=== PATIENT | male | born 1955 | race Caucasian/White ===

== ENCOUNTER 2020-10-24 12:38 | Outpatient (REF) | payer OTHER, SELFPAY ==
--- NOTE | ~2020-10-24 | XR_ITS ---
EXAMINATION: XR HAND, BILATERAL CLINICAL INFORMATION: Anesthesia of skin. COMPARISON: None TECHNIQUE: Three views left hand and three views right hand. FINDINGS: LEFT HAND: Mild reduction in PIP and DIP joint space is noted. The MCP joint and intercarpal joint spaces are normal. No fracture or dislocation seen. No soft tissue swelling. RIGHT HAND: Mild reduction PIP and DIP joint space without bony erosive changes. The MCP joint space is normal. There are mild bony erosive changes along the distal mid phalanx 3rd digit and distal 1st metacarpal 1st digit. The soft tissues are unremarkable. XR/XR hand RT min 3V IMPRESSION: Minimal early degenerative changes PIP and DIP joints. Mild bony erosive changes distal and mid phalanx 3rd digit and distal 1st metacarpal, nonspecific.
--- NOTE | ~2020-10-24 | XR_ITS ---
EXAMINATION: XR HAND, BILATERAL CLINICAL INFORMATION: Anesthesia of skin. COMPARISON: None TECHNIQUE: Three views left hand and three views right hand. FINDINGS: LEFT HAND: Mild reduction in PIP and DIP joint space is noted. The MCP joint and intercarpal joint spaces are normal. No fracture or dislocation seen. No soft tissue swelling. RIGHT HAND: Mild reduction PIP and DIP joint space without bony erosive changes. The MCP joint space is normal. There are mild bony erosive changes along the distal mid phalanx 3rd digit and distal 1st metacarpal 1st digit. The soft tissues are unremarkable. XR/XR hand LT min 3V IMPRESSION: Minimal early degenerative changes PIP and DIP joints. Mild bony erosive changes distal and mid phalanx 3rd digit and distal 1st metacarpal, nonspecific.
== END 2020-10-24 12:39 | disposition home or self-care (01) ==
LOC: HO.XRAY 12:38
PROVIDERS: PCP Family Medicine; Visit Provider Family Medicine
DX: R20.0 Anesthesia of skin (principal)
CPT/HCPCS: 73130

== ENCOUNTER → 2022-04-10 14:11 | Outpatient (BNVA) | payer OTHER, SELFPAY | PROVIDERS: PCP Family Medicine; Referring Provider Family Medicine; Visit Provider Internal Medicine Cardiovascular Disease | DX: I42.2 Other hypertrophic cardiomyopathy (principal); I10 Essential (primary) hypertension | CPT/HCPCS: 93005; 99202 ==

== ENCOUNTER 2022-05-13 09:53 | Day surgery (SDC) | payer OTHER, SELFPAY ==
--- NOTE | 2022-05-12 13:41 | HO.ANESPROP2 ---
Documented by User: Zulay Black NP 05/12/22 14:15 HPI - Anesthesia Eval Consult details Narrative: 67yo M for Colonoscopy [place] [facility] [place] hypertrophic cardiomyopathy. Last seen 04/2022 and clinically stable, good exercise tolerance. Case reviewed with Dr Soni KATE Active Problems Active Problems: All Active Problems (Updated 04/10/22 @ 14:33 by Fercho Gordon MD) HTN (hypertension) (Acute) Apical variant hypertrophic cardiomyopathy (Acute) Back pain (Acute) Past Medical History Medical History Apical variant hypertrophic cardiomyopathy Back pain Diabetes HTN (hypertension) Hyperlipidemia Social History Social History Advance Directives: No Advance Directives Information Provided: Yes Meds Allergies Allergy/AdvReac Type Severity Reaction Status Date / Time No Known Allergies Allergy Unverified 03/07/21 14:54 Home Medications Medication Instructions Recorded Confirmed Last Taken Type amlodipine 5 mg tablet 5 mg PO DAILY 04/10/22 04/10/22 Unknown History glipizide 2.5 mg tablet, extended 2.5 mg PO DAILY 04/10/22 04/10/22 Unknown History release 24 hr lisinopril 10 mg tablet 10 mg PO DAILY 04/10/22 04/10/22 Unknown History metformin 500 mg tablet,extended 1,000 mg PO BID 04/10/22 04/10/22 Unknown History release 24 hr pravastatin 20 mg tablet 20 mg PO DAILY PRN 04/10/22 04/10/22 Unknown History sitagliptin phosphate 100 mg 100 mg PO DAILY 04/10/22 04/10/22 Unknown History tablet (Januvia) Fish Oil 05/12/22 Unknown History Vitamin D3 05/12/22 05/12/22 Unknown History cyanocobalamin (vitamin B-12) 1 tab PO DAILY 05/12/22 05/12/22 Unknown History 1,000 mcg tablet Exam Exam Date and Time: May 12, 2022 1341 Narrative Narrative: EKG 04/2022 normal sinus rhythm with QS pattern in lead V1 and V2 with ST T wave changes suggestive of repolarization abnormality ECHO 2014 LV size is normal. Overall LV systolic function is hyperdynamic with EF >70% No regional LV wall motion abn. Progressive increase in wall thickness toward apex c/w assymetric apical hypertrophy. Diastolic filling pattern indicates impaired relaxation RV nml in size. RV systolic function is nml. Velocity of tricuspid regurg could not be adequated recorded No evidence of pericardial effusion Aortic root is minimally dilated measuring 3.9cm Assessment and Plan Assessment Anesthesia Assessment: Chart Reviewed Documented by User: Ania Green MD 05/13/22 10:30 [facility] Past Medical History Medical History Apical variant hypertrophic cardiomyopathy Back pain Diabetes HTN (hypertension) Hyperlipidemia Surgical History History of Problems with Anesthesia: No Social History Social History Advance Directives: No Advance Directives Information Provided: Yes Meds Allergies Allergy/AdvReac Type Severity Reaction Status Date / Time No Known Allergies Allergy Unverified 03/07/21 14:54 Home Medications Medication Instructions Recorded Confirmed Last Taken Type amlodipine 5 mg tablet 5 mg PO DAILY 04/10/22 04/10/22 Unknown History glipizide 2.5 mg tablet, extended 2.5 mg PO DAILY 04/10/22 04/10/22 Unknown History release 24 hr lisinopril 10 mg tablet 10 mg PO DAILY 04/10/22 04/10/22 Unknown History metformin 500 mg tablet,extended 1,000 mg PO BID 04/10/22 04/10/22 Unknown History release 24 hr pravastatin 20 mg tablet 20 mg PO DAILY PRN 04/10/22 04/10/22 Unknown History sitagliptin phosphate 100 mg 100 mg PO DAILY 04/10/22 04/10/22 Unknown History tablet (Januvia) Fish Oil 05/12/22 Unknown History Vitamin D3 05/12/22 05/12/22 Unknown History cyanocobalamin (vitamin B-12) 1 tab PO DAILY 05/12/22 05/12/22 Unknown History 1,000 mcg tablet Exam Airway Mallampati Class: III TM Dist: >3cm Neck ROM: Full Loose/Missing/Broken Teeth: No Heart: RRR Lungs: CTA Assessment and Plan Assessment Anesthesia Assessment: Anesthesia Plan Discussed Final Anesthetic Review History of Problems with Anesthesia: No NPO: Yes ASA Class: III Final Preanesthetic Review: Meds/Allgs Chart Reviewed, Consent Obtained/Reviewed and Anes Risks/Benef Reviewed Patient Risk: Intermediate Procedure Risk: Low Anesthetic Plan Anesthetic Plan: MAC: Disposition: Standard PACU
--- NOTE | 2022-05-13 10:35 | MHC.SHP ---
Pre-Procedural Eval Section A Date of Service: 05/13/22 The patient is an INPATIENT: No Changes since office visit: No Cold of Flu in the past 2 weeks, No New Medical Problems, No Changes in Medication and No Patient answered all questions The History & Physical has been completed within 30 days and I have reviewed it.: Yes Section B Chief Complaint: screening Allergies: Allergies Allergy/AdvReac Type Severity Reaction Status Date / Time No Known Allergies Allergy Unverified 03/07/21 14:54 Plan I have reviewed the history and physical and performed a pertinent physical examination on my patient. No changes have occurred unless specified. Time Spent With Patient Time: Total time managing care of this patient today ____ minutes.
[2022-05-13 10:51] VITALS: BP 107/78; PULSE 83; RESP 18; TEMP 36.3; O2SAT 96; BMI 29.1
[2022-05-13 10:52] LABS: Glucose, Whole Blood 203 mg/dL (60-115)
[2022-05-13] MEDS: Lactated Ringers 1,000 ML 50 ML IVCONT (10:55)
[2022-05-13 11:25] VITALS: BP 88/49; PULSE 74; RESP 20; TEMP 36.7; O2SAT 97
--- NOTE | 2022-05-13 11:32 | P.BOP_ITS ---
Brief Operative Note Date of Service: 05/13/22 Pre-op diagnosis: screening Post-op diagnosis: same Procedure: colonoscopy Surgeon: Tommy Montano Anesthesia: MAC Was an Table Games Shift Manager used for this Procedure?: No Estimated blood loss (mL): 2 Pathology: none sent Condition: stable Disposition: PACU
[2022-05-13 11:40] VITALS: BP 104/69; PULSE 72; RESP 18; O2SAT 95
[2022-05-13 11:55] VITALS: BP 107/77; PULSE 82; RESP 18; TEMP 36.6; O2SAT 98
--- NOTE | 2022-05-13 13:15 | OP_ITS ---
SURGEON: Tommy Montano MD INDICATIONS: Colon cancer screening. PREOPERATIVE DIAGNOSIS: POSTOPERATIVE DIAGNOSIS: PROCEDURE PERFORMED: Colonoscopy to the terminal ileum. ESTIMATED BLOOD LOSS: COMPLICATIONS: ANESTHESIA: Monitored anesthesia care. ASSISTANTS: SPECIMENS: DESCRIPTION OF PROCEDURE: Date:05/13/22. History and physical performed. The risks and benefits of the procedure were explained to the patient. Informed consent was obtained. The patient was placed in the left lateral decubitus position. A digital rectal exam was performed and was found to be normal. The Olympus pediatric video colonoscope was introduced into the rectum and advanced to the cecum without difficulty. The cecum was identified by transillumination, palpation, and identification of ileocecal valve. Examination was performed. The scope was removed. He tolerated the procedure well and was returned to the recovery area in stable condition. FINDINGS: The terminal ileum was examined and appeared normal. The visualized colonic mucosa was within normal limits without evidence of masses or ulcers. There was some liquid stool left, which limited the sensitivity examination for detection of small polyps. This was washed and suctioned. No polyps were identified. There was sigmoid diverticulosis with scattered diverticula throughout the remainder of the colon. Retroflexed examination showed moderate-sized internal hemorrhoids. IMPRESSION: Normal colonoscopy. RECOMMENDATION: 1. Follow up as needed. 2. Repeat colonoscopy is recommended in 10 years for average risk individuals. MD [place] Diallo/REJI / [id number] MTDD
== END 2022-05-13 12:30 | disposition home or self-care (01) ==
PROVIDERS: PCP Family Medicine; Visit Provider Internal Medicine Gastroenterology
PROC: 0DJD8ZZ Inspection of Lower Intestinal Tract, Via Natural or Artificial Opening Endoscopic (ICD-10-PCS; CPT 45378; principal; 2022-05-13 11:00)
DX: Z12.11 Encounter for screening for malignant neoplasm of colon (principal); K57.30 Diverticulosis of large intestine without perforation or abscess without bleeding; K64.8 Other hemorrhoids; I10 Essential (primary) hypertension; E78.00 Pure hypercholesterolemia, unspecified; E11.9 Type 2 diabetes mellitus without complications; Z79.84 Long term (current) use of oral hypoglycemic drugs; Z79.899 Other long term (current) drug therapy
CPT/HCPCS: G0121; 82947

== ENCOUNTER → 2022-05-14 10:21 | Outpatient (REF) | payer OTHER, SELFPAY ==
--- NOTE | 2022-05-14 10:26 | CA_ITS ---
Transthoracic Echocardiogram Patient (Last, First, Middle): Prabhu Esquivel, Gender: Male Date of : 1955 Age: 67 Procedure Date: 05/14/2022 Procedure Type: Transthoracic Echocardiogram Location: OP Height: 180.34 cm Weight: 94.8 kg BSA: 2.15 m2 Heart Rate: bpm BP: 105 / 72 mmHg Survey And Mapping Technician: TO Referring MD: Fercho Gordon MD Symptoms: I42.2 - Other hypertrophic cardiomyopathy Study Quality: Fair/Contrast ECG Rhythm: Sinus Conclusions: - The left ventricular systolic function is hyperdynamic. The visually estimated ejection fraction is >70%. - Apical hypertrophic cardiomyopathy noted with apical cavity obliteration during systole. - No obvious valvular pathology seen on this study. Findings Procedure Information Contrast agent, definity, is being given per protocol without apparent complications. Left Ventricle Mildly increased left ventricular cavity size. The left ventricular systolic function is hyperdynamic. The visually estimated ejection fraction is >70%. There is no evidence of regional wall motion abnormalities. Diastolic function is normal for age. Left ventricular wall thickness within normal range at the base increases towards the apex. Suggestive of apical hypertrophic cardiomyopathy. Apical cavity obliteration during systole. Right Ventricle Normal right ventricular cavity size and systolic function. Atria The left atrium is normal in size. Interatrial shunt cannot be excluded. Aortic Valve There is a normal trileaflet aortic valve. There is no aortic valve stenosis. There is no aortic valve regurgitation. Mitral Valve The mitral valve appears normal. There is no mitral valve regurgitation. There is no mitral valve stenosis. Pulmonic Valve The pulmonic valve is likely normal. Tricuspid Valve Normal tricuspid valve structure. There is trace tricuspid valve regurgitation. Tricuspid regurgitation envelope is inadequate for calculation of right ventricular systolic pressure. Great Vessels The asc aorta is normal in size. Venous The inferior vena cava is normal in size and collapses greater than 50% with inspiration. Pericardium/Pleural There is no evidence of pericardial effusion. Prior Study Comparison No significant change compared to prior study dated: 10/18/2014. Recommendations, Care & Conclusions No obvious valvular pathology seen on this study. Measurements 2D Linear Measurements IVSd: 1.41 0.6-0.9/0.6-1.0 cm LVIDd: 4.25 3.9-5.3/4.2-5.9 cm LVIDd Index: 1.98 2.4-3.2/2.2-3.1 cm/m2 LVIDs: 2.35 2.0-3.6 cm LVPWd: 0.96 0.7-1.1 cm LA Diam: 3.40 2.7-3.8/3.0-4.0 cm LAIDs Index: 1.58 1.5-2.3 cm/m2 LV Mass: 222.16 67-162/88-224 g LV Mass Index: 103.33 43-95/49-115 g/m2 LVOT Diam: 2.40 3.0+(-)1.3 cm 2D Systolic Function EF 4C: 69.40 >55% EF 2C: 66.30 >55% EF BiP: 67.10 >55% Mitral Valve MV Pk E: 0.47 MV PK A: 0.69 MV Decel Time: 168.00 E/A: 0.70 E'Lateral: 5.33 E'Medial: 3.81 E/E' Med: 12.40 E/E' Lat: 8.80 PHT: 49.00 MVA PHT: 4.49 Decel Curry: 2.80 Aortic Valve AoV Pk Alexy: 1.28 AoV Mn Alexy: 0.90 AoV VTI: 0.25 AoV Pk Grad: 7.00 Aov Mn Grad: 4.00 YAYO Cont.VTI: 3.30 LVOT LVOT Pk Alexy: 0.85 LVOT Mn Alexy: 0.63 LVOT VTI: 0.18 LVOT Pk Grad: 3.00 LVOT Mn Grad: 2.00 LVOT Diam: 2.40 LVOT Area: 4.52 Diastolic Function MV Pk E: 0.47 MV Pk A: 0.69 E/A: 0.70 E'Medial: 3.81 E/E' Med: 12.40 E' Laterial: 5.33 E/E' Lat: 8.80 Right Ventricle TAPSE (mm): 21.20 TVS' Alexy: 12.10 Tricuspid Valve RA Press: 3.00 Great Vessels Aorta Sinus of Valsalva: 4.12 2.0-3.5 cm Ao Asc: 3.70 2.1-3.4 cm Updated in Other Vendor System with Status of Final Josep Dao MD electronically signed on 05/17/2022 12:49:19 PM with status of Final
== END ==
LOC: HO.CARD 10:21
PROVIDERS: PCP Family Medicine; Visit Provider Internal Medicine Cardiovascular Disease
DX: I42.2 Other hypertrophic cardiomyopathy (principal)
CPT/HCPCS: 93306; Q9957

== ENCOUNTER 2022-11-21 09:18 | Outpatient (REF) | payer OTHER, SELFPAY ==
--- NOTE | ~2022-11-21 | US_ITS ---
EXAMINATION: US ABDOMEN COMPLETE CLINICAL INFORMATION: Transaminitis. COMPARISON: Renal ultrasound 12/20/2013. TECHNIQUE: Real-time imaging of the abdominal viscera. FINDINGS: PANCREAS: Limited. The visualized pancreatic head and body are normal in appearance. The remainder of the pancreas is obscured from visualization by the overlying bowel gas. ABDOMINAL AORTA: The proximal, mid, and distal segments are normal in caliber. INFERIOR VENA CAVA: Visualized portions are normal. LIVER: The liver is normal in size. The liver contour is normal. There is diffuse increased liver parenchymal echogenicity. No focal hepatic lesion. There is no intrahepatic biliary duct dilatation seen. GALLBLADDER: Normal. The gallbladder is physiologically distended without evidence of stones, sludge, polyps, wall thickening or pericholecystic fluid. COMMON BILE DUCT: Normal in caliber measuring 0.6 cm in diameter. RIGHT KIDNEY: Unremarkable. No hydronephrosis. No renal calculi or focal parenchymal lesions. The kidney measures 11.6 cm in maximum dimension. LEFT KIDNEY: At the upper pole, 2.1 cm and 4 mm in maximal diameter benign, simple cysts are seen. No hydronephrosis or renal calculi. The kidney measures 11.7 cm in maximum dimension. SPLEEN: No focal finding. The spleen measures 13.0 cm in maximum dimension. FREE FLUID: None. US/US abdomen complete IMPRESSION: 1. There is generalized increase in hepatic echotexture, consistent with fatty infiltration or hepatocellular disease. Please correlate clinically. No focal hepatic mass or intrahepatic biliary dilatation is seen. 2. There is borderline splenomegaly. 3. Two benign, simple left renal cysts are seen, for which no imaging follow-up is recommended. 4. Technically limited ultrasound examination of the pancreatic tail.
== END 2022-11-21 09:19 | disposition home or self-care (01) ==
LOC: HO.US 09:18
PROVIDERS: PCP Family Medicine; Visit Provider Family Medicine
DX: R74.01 Elevation of levels of liver transaminase levels (principal)
CPT/HCPCS: 76700

== ENCOUNTER 2023-04-16 11:18 | Outpatient (REF) | payer OTHER, SELFPAY ==
[2023-04-16 13:39] LABS: Estimated Average Glucose 143 mg/dL; Hemoglobin A1c % 6.6 % (<6.0)
[2023-04-16 13:44] LABS: Cholesterol 185 mg/dL (<200); HDL Cholesterol 45 mg/dL (>40); LDL Cholesterol Calculated 121 mg/dL (<100); Triglycerides 95 mg/dL (<150)
[2023-04-16 13:46] LABS: Reflex LDLD? No
[2023-04-16 13:53] LABS: Alanine Aminotransferase 14 U/L (0-40); Albumin Level 4.3 g/dL (3.5-5.0); Alkaline Phosphatase 50 U/L (39-117); Anion Gap 12 (12-20); Aspartate Amino Transferase 14 U/L (5-37); Bilirubin Total 0.6 mg/dL (0.0-1.0); Blood Urea Nitrogen 34 mg/dL (9-16); Calcium 9.9 mg/dL (8.4-10.2); Carbon Dioxide 25 mmol/L (22-29); Chloride 106 mmol/L (96-108); Estimated Glomerular Filt Rate 39; Glucose Random 150 mg/dL (60-115); Potassium 4.5 mmol/L (3.3-5.1); Sodium 138 mmol/L (135-145); Total Protein 7.3 g/dL (6.5-8.0)
[2023-04-16 13:54] LABS: Creatinine Urine 160.44 mg/dL; Microalbum/Creatinine Ratio Ur 25.5 ug/mg cr (<30)
[2023-04-16 13:57] LABS: TSH reflex Free T4 3.17 uIU/mL (0.32-4.0)
[2023-04-16 14:18] LABS: Folate 9.4 ng/mL (> or = 4.0); Vitamin B12 711 pg/mL (200-900)
== END 2023-04-16 11:19 | disposition home or self-care (01) ==
LOC: HO.HHCL 11:18
PROVIDERS: Visit Provider Family Medicine
DX: E11.65 Type 2 diabetes mellitus with hyperglycemia (principal); E11.22 Type 2 diabetes mellitus with diabetic chronic kidney disease; I42.2 Other hypertrophic cardiomyopathy; I25.10 Atherosclerotic heart disease of native coronary artery without angina pectoris; I12.9 Hypertensive chronic kidney disease with stage 1 through stage 4 chronic kidney disease, or unspecified chronic kidney disease; N18.9 Chronic kidney disease, unspecified; Z79.899 Other long term (current) drug therapy
CPT/HCPCS: 36415; 80053; 80061; 82043; 82570; 82607; 82746; 83036; 84443; 93005; 99212

== ENCOUNTER 2023-04-16 13:28 | Outpatient (AMB) | payer OTHER, SELFPAY ==
[2023-04-16 13:45] VITALS: BP 120/78; PULSE 77; BMI 27.1
--- NOTE | 2023-04-16 13:45 | MHC.OFFVIS ---
Intake Vital Signs 04/16/23 13:45 Height 5 ft 11 in Weight 194 lb 0.108 oz BMI 27.1 BP 120/78 Blood Pressure Location Lt brachial Position Sitting Pulse 77 Intake Visit Reasons: 1 year follow up Intake Note: 1 year follow-up with ekg feeling good Fabrication Welder Required: No Allergies No Known Allergies Allergy (Unverified 03/07/21 14:54) Medication List - Last Reconciled 04/16/23 by Fercho Gordon MD amlodipine 5 mg PO DAILY aspirin 1 tab PO DAILY cyanocobalamin (vitamin B-12) 1 tab PO DAILY [Fish Oil ] glipizide ER 2.5 mg PO DAILY lisinopril 10 mg PO DAILY metformin ER 1,000 mg PO BID pravastatin 20 mg PO DAILY sitagliptin phosphate (Januvia) 100 mg PO DAILY [Vitamin D3 ] HPI HPI Comments History of Present Illness Details Prabhu comes for follow-up. He has no new cardiac symptoms. He says blood pressures been under good control, diabetes been under good control. His LDL most recently shows a LDL of 121 which is elevated. His creatinine is elevated 1.73. I do not see any old creatinine in the system in the last 3 years. Takes all his medications. Denies any exertional chest pain or shortness of breath. No heart failure symptoms. No prolonged palpitations, irregular heartbeat, lightheadedness, syncope. [facility] Medical History Apical variant hypertrophic cardiomyopathy Hyperlipidemia Diabetes HTN (hypertension) Back pain Social History Patient Tobacco Use Status: Never used Tobacco Review of Systems Const Denies chills, Denies fatigue, Denies fever(s), Denies frequent falls, Denies weakness, Denies weight gain and Denies weight loss ENT Denies dizziness Card Denies chest pain, Denies leg edema, Denies lightheadedness, Denies palpitations, Denies dyspnea, Denies dyspnea on exertion, Denies orthopnea and Denies other (loss of consciousness) Resp Denies cough, Denies dyspnea and Denies dyspnea on exertion GI Denies hematochezia and Denies change in stool character Musc Denies abnormal gait, Denies muscle weakness, Denies numbness, Denies radiating pain into limb and Denies tingling Neuro Denies abnormal gait, Denies dizziness, Denies frequent falls, Denies numbness, Denies tingling and Denies weakness Endo Denies fatigue and Denies palpitations Physical Exam Vital Signs: Last Vital Signs Pulse 77 04/16/23 13:45 BP 120/78 04/16/23 13:45 BMI result Body Mass Index 27.1 Const General: cooperative, comfortable, no acute distress, alert and awake Nutritional Appearance: overweight Orientation/consciousness: patient oriented x3 Limitations: no limitations HEENT Head: Yes normocephalic and Yes atraumatic Neck Neck: Yes trachea midline, Yes supple and Yes no JVD Resp Effort & Inspection: normal respiratory effort Auscultation: clear to auscultation bilaterally Cardio Jugular venous distension: no JVD Palpation: normal PMI Rate: regular rate Rhythm: regular rhythm Heart sounds: S1 normal heart sound present, S2 normal heart sound present, no click, no gallops, no murmurs and no rubs GI Auscultation: normal bowel sounds Skin General skin exam: no rashes or lesions noted Neuro General: patient oriented x3 and no focal motor deficits Extrem General: Yes no clubbing, cyanosis or edema Office Procedures EKG Details: EKG shows normal sinus rhythm with diffuse ST T wave changes, consistent with his prior history of apical variant hypertrophic cardiomyopathy, unchanged from before [id number], Complete Assessment & Plan Assessment & Plan (1) Apical variant hypertrophic cardiomyopathy: Code(s): I42.2 - Other hypertrophic cardiomyopathy Plan: Apical variant of hypertrophic cardiomyopathy without any signs or symptoms of heart failure. Continue aggressive control of his blood pressure to prevent progressive diastolic dysfunction. Signs and symptoms of heart failure were discussed. Follow-up echocardiogram next year. Should consider screening for his kids with at least an EKG. (2) HTN (hypertension): Code(s): I10 - Essential (primary) hypertension Plan: Hypertension which is currently well optimized on current therapy. Continue the same. His diabetes also well controlled. However he is noted to have CKD. Will refer him to Nephrology for further assessment and management for chronic kidney disease. Continue aggressive control of lipids which are not well optimized will switch him to Lipitor 20 mg daily and follow-up lipid panel in 3 months time. Follow up in the clinic in 1 year's time, sooner p.r.n.. Thank you for allowing me to partake in his care Orders: Orders CA echo transthoracic complete 50 Weeks I42.2 - Other hypertrophic cardiomyopathy Lipid Panel 3 Months E11.9 - Type 2 diabetes mellitus without complications, I25.10 - Atherosclerotic heart disease of [place] coronary artery without angina pectoris Referrals Nephrology Referral N18.9 - Chronic kidney disease, unspecified Medications: New atorvastatin 20 mg PO DAILY 30 tabs 11RF Coding Level of Care Code Est Pt Level 4 (70890) Diagnoses Apical variant hypertrophic cardiomyopathy I42.2 HTN (hypertension) I10 CPT Codes EKG - CPT: 56158-[id number], Complete ([id number])
== END 2023-04-16 14:14 | disposition home or self-care (01) ==
PROVIDERS: Visit Provider Internal Medicine Cardiovascular Disease
DX: I42.2 Other hypertrophic cardiomyopathy (principal); I10 Essential (primary) hypertension
CPT/HCPCS: 93010; 99214

== ENCOUNTER 2023-04-28 14:06 | Outpatient (AMB) | payer OTHER, SELFPAY ==
[2023-04-28 14:07] VITALS: BP 100/62; PULSE 88; O2SAT 98; BMI 27.8
--- NOTE | 2023-04-28 14:07 | A.OFFVIS_ITS ---
Intake Vital Signs 04/28/23 14:07 Height 5 ft 11 in Weight 199 lb 2 oz BMI 27.8 BP 100/62 Blood Pressure Location Lt brachial Position Sitting Pulse 88 Pulse Source Pulse Oximeter Pulse Oximetry (%) 98 Oxygen Delivery Method Room Air Intake Visit Reasons: CKD Orthopedic Technician Required: No Accompanied by: Self / Same As Patient Allergies No Known Allergies Allergy (Verified 04/28/23 14:12) HPI HPI Comments History of Present Illness Details 60 year old man with history of diabetes mellitus and hypertension for more than 15 years. He was found to have serum creatinine of 1.7 with EGFR of 13 mL/minute he has been a for further evaluation. [facility] Medical History Apical variant hypertrophic cardiomyopathy Hyperlipidemia Diabetes HTN (hypertension) Back pain Social History Patient Tobacco Use Status: Never used Tobacco Review of Systems Const Denies anorexia, Denies fever(s) and Denies weakness Eyes Denies blurry vision Card Denies no additional complaints and Denies dyspnea Resp Reports no additional complaints, Reports cough and Denies dyspnea GI Denies melena and Denies diarrhea Denies hematuria Musc Denies tingling Skin/Breast Denies rash Neuro Denies focal weakness, Denies tingling, Denies tremor(s) and Denies weakness Physical Exam Vital Signs: Last Vital Signs Pulse 88 04/28/23 14:07 BP 100/62 04/28/23 14:07 Pulse Ox 98 04/28/23 14:07 Oxygen Delivery Method Room Air 04/28/23 14:07 BMI result Body Mass Index 27.8 Const General: comfortable; No acute distress Orientation/consciousness: patient oriented x3 Eyes General: appearance normal, both eyes and all related structures Visual Carrillo: normal visual carrillo by confrontation Neck Neck: Yes supple and Yes no JVD Resp Effort & Inspection: normal respiratory effort and respiratory effort not decreased Auscultation: rhonchi Cardio Palpation: no palpable S3 and no palpable S4 Heart sounds: no rubs GI Inspection: Yes normal to inspection Palpation (GI): Soft to palpation Percussion: Yes normal to percussion Auscultation: normal bowel sounds General: Yes no CVA tenderness Back/Spine/Pelvis Back: no CVA tenderness Skin General skin exam: no petechiae and no purpura Neuro General: patient oriented x3 and no focal motor deficits Extrem General: No clubbing and No edema Results Reviewed Results Reviewed: All labs were reviewed. Assessment & Plan Assessment & Plan (1) CKD (chronic kidney disease): Code(s): N18.9 - Chronic kidney disease, unspecified Plan: CKD stage 3. Serum creatinine 1.7. Baseline unknown. Cannot rule out superimposed NOEMI. NOEMI may be due to hypoperfusion from relatively low blood pressure. Will workup as outlined below. (2) Apical variant hypertrophic cardiomyopathy: Code(s): I42.2 - Other hypertrophic cardiomyopathy Plan: Currently asymptomatic. Follows with cardiology (3) Diabetes: Code(s): E11.9 - Type 2 diabetes mellitus without complications Plan: Goal A1c less than 7%. Discussed importance of tight control blood sugar. (4) HTN (hypertension): Code(s): I10 - Essential (primary) hypertension Plan: History of hypertension but blood pressure rather low today. He stopped amlodipine several weeks ago. I will decrease lisinopril from 10 mg down to 5 mg. Orders: Orders Creatinine 1 Week N18.9 - Chronic kidney disease, unspecified Calcium 1 Week N18.9 - Chronic kidney disease, unspecified Total Protein Urine Random 1 Week N18.9 - Chronic kidney disease, unspecified UA and rflx microscopic 1 Week N18.9 - Chronic kidney disease, unspecified Electrolytes 1 Week N18.9 - Chronic kidney disease, unspecified Blood Urea Nitrogen 1 Week N18.9 - Chronic kidney disease, unspecified Creatinine Urine 1 Week N18.9 - Chronic kidney disease, unspecified Uric Acid 1 Week N18.9 - Chronic kidney disease, unspecified Coding Level of Care Code New Pt Level 4 (91988) Diagnoses CKD (chronic kidney disease) N18.9 Apical variant hypertrophic cardiomyopathy I42.2 Diabetes E11.9 HTN (hypertension) I10
== END 2023-04-28 14:30 | disposition home or self-care (01) ==
PROVIDERS: PCP Family Medicine; Visit Provider Internal Medicine Hypertension Specialist
DX: N18.9 Chronic kidney disease, unspecified (principal); I42.2 Other hypertrophic cardiomyopathy; E11.9 Type 2 diabetes mellitus without complications; I12.9 Hypertensive chronic kidney disease with stage 1 through stage 4 chronic kidney disease, or unspecified chronic kidney disease
CPT/HCPCS: 99204

== ENCOUNTER → 2023-04-28 14:06 | Outpatient (BNVA) | payer OTHER, SELFPAY | PROVIDERS: PCP Family Medicine; Visit Provider Internal Medicine Hypertension Specialist | DX: E11.22 Type 2 diabetes mellitus with diabetic chronic kidney disease (principal); I12.9 Hypertensive chronic kidney disease with stage 1 through stage 4 chronic kidney disease, or unspecified chronic kidney disease; N18.9 Chronic kidney disease, unspecified; I42.2 Other hypertrophic cardiomyopathy | CPT/HCPCS: 99202 ==

== ENCOUNTER 2023-05-20 13:24 | Outpatient (AMB) | payer MEDICARE, MEDICAID, SELFPAY ==
[2023-05-20 13:43] VITALS: BP 126/78; PULSE 82; TEMP 36.3; O2SAT 98; BMI 28.7
--- NOTE | 2023-05-20 13:43 | MHC.OFFVIS ---
Intake Vital Signs 05/20/23 13:43 Height 5 ft 10 in Weight 199 lb 15.348 oz BMI 28.7 BP 126/78 Blood Pressure Location Rt brachial Position Sitting Pulse 82 Pulse Source Pulse Oximeter Temp 97.3 F Temp Source Tympanic Pulse Oximetry (%) 98 Oxygen Delivery Method Room Air Intake Visit Reasons: multiple joint pain Suspension Cord Tier Required: No Allergies No Known Allergies Allergy (Verified 05/20/23 13:45) Medication List - Last Reconciled 05/20/23 by Alysa De La Rosa RN aspirin 1 tab PO DAILY atorvastatin 10 mg PO DAILY cyanocobalamin (vitamin B-12) 1 tab PO DAILY [Fish Oil ] glipizide 5 mg PO DAILY lisinopril 5 mg PO DAILY metformin ER 1,000 mg PO BID sitagliptin phosphate (Januvia) 100 mg PO DAILY [Vitamin D3 ] HPI HPI Comments History of Present Illness Details Mr. Esquivel, 60 year old man with history of diabetes mellitus and hypertension for more than 15 years, comes for initial evaluation of hand spasms and pain. He says blood pressures been under good control, diabetes been under good control. The patient has been experiencing increase hand spasms(to both hands but not at the same time) with activities such as driving for long periods or doing dishes in cold water. He describes that a hand will stiffen and get stuck whereby he cannot independently move the fingers and objects will fall from the hand. This can last from 5 to 30 mins. He then has to massage the hand or hold it under warm water to help the hand to relax. These episodes are painful and are increasing. Patient denies Raynaud's phenomenon, butterfly rash on face or other rashes; denies photosensitivity - getting sick or developing a rash from being out in the sun; denies blood or froth in urine; patient denies hx of SOB, chest pain. Patient denies hx of Carditis or Pleuritis. Denies fevers, excessive fatigue, unexplained weight-loss or weight-gain Denies: thinning hair or hair loss. Denies: dry, itchy eyes, red burning eyes needing steroids to treat; dry mouth, mouth sores or ulcers; nose bleed; ringing in the ear Denies abdominal pain, blood or mucous in stool; nausea, vomiting and diarrhea , difficulty swallowing, heartburn. Denies morning stiffness lasting more than 20 mins. [facility] Medical History (Updated 12/20/23 @ 14:20 by Marisel Patton, [facility]) Spasms of the hands or feet Claw hand Arthralgia of hands, bilateral Bilateral hand numbness Erosive (osteo)arthritis FHx: Alzheimer's disease Memory impairment Left foot pain Bilateral knee pain Transaminitis Type 2 diabetes mellitus Apical variant hypertrophic cardiomyopathy Hyperlipidemia Diabetes HTN (hypertension) Back pain Family History Other Alzheimer disease Social History Patient Tobacco Use Status: Never used Tobacco Review of Systems Const All systems reviewed & are unremarkable except as noted in HPI and below Physical Exam Vital Signs: Last Vital Signs Temp 97.3 F 05/20/23 13:43 Pulse 82 05/20/23 13:43 BP 126/78 05/20/23 13:43 Pulse Ox 98 05/20/23 13:43 Oxygen Delivery Method Room Air 05/20/23 13:43 BMI result Body Mass Index 28.7 APPEARANCE: Patient in no acute distress EYES no redness, eyelids normal EARS:? External ear normal, canal clear and tympanic membrane normal. THROAT:? Oral mucosa moist, no ulcerations NECK:? No thyromegaly or masses, no adenopathy, trachea midline. HEART:? Regular rhythm, S1-S2 heard, no murmurs, rubs or gallops. LUNG:? Clear to percussion and auscultation EXTREMITIES:? No edema, no calf tenderness, normal peripheral pulses. NEURO:? Oriented and alert x3.? No focal weakness.? Reflexes symmetric.? Gait normal. Strength 5/5 SKIN:? There are no skin lesions evident. No objective signs of Raynaud's phenomenon. JOINT EXAM: Cervical Spine:.? Full range of motion without pain; no tenderness. Thoracic Spine:.? No scoliosis.? No tenderness on palpation. Lumbar Spine:.? Alignment normal.? Full range of motion without pain, no tenderness. Chest Wall:.? No tenderness, swelling, increased warmth or erythema. Hands:.? Normal pain-free range of motion without tenderness, swelling, increased warmth or erythema. 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 No dupuytrens or thenar atrophy, No osteophytes. Wrists:.? Normal pain-free range of motion without tenderness, swelling, increased warmth or erythema. Elbows:. Normal pain-free range of motion without tenderness, swelling, increased warmth or erythema. Shoulders:.?? Full range of motion without pain. No tenderness, weakness, swelling, increased warmth or erythema. Hips:.? Full range of motion without pain. Hip bursa:.? No tenderness. Knees:.?? Normal pain-free range of motion without tenderness, swelling, increased warmth or erythema.? There is no effusion or crepitation Ankles:.? Normal pain-free range of motion without tenderness, swelling, increased warmth or erythema. Feet:.? Normal pain-free range of motion without tenderness, swelling, increased warmth or erythema. Assessment & Plan Assessment & Plan (1) Bilateral hand numbness: Code(s): R20.0 - Anesthesia of skin (2) Arthralgia of hands, bilateral: Code(s): M25.541 - Pain in joints of right hand; M25.542 - Pain in joints of left hand (3) Spasms of the hands or feet: Code(s): R25.2 - Cramp and spasm (4) Diabetic neuropathic arthritis: Code(s): E11.610 - Type 2 diabetes mellitus with diabetic neuropathic arthropathy Plan #Diabetic Neuro Arthritis/Hand Spasms/Numbness:Mr. Esquivel is a 68-year-old male with NIDM and Hypertension, who has been experiencing increase hand spasms(to both hands but not at the same time) with activities such as driving for long periods or doing dishes in cold water. After careful initial review of available diagnostics at hand x-rays from 2020 and labs, I do not think the patient has a connective tissue disease or inflammatory process that underlies his symptoms. He denies swelling, warmth and redness to hand and IP joints or any other joints. He has no osteophytes or enlarged IP joints. I suspect this could be related to the effects of longstanding diabetes on the nerves and tendons of the hands - Diabetic neuropathy. He does not have permanently stiff fingers with thick, shiny skin such so this is not diabetic hands and he had negative ?prayer? and ?table top? signs.?Patient with T2DM can develop tenosynovitis of the flexor tendon that connects the bones fingers and thumb to the palms. However, he denies stiffness, redness and pain on the entire finger and thumb. The also denies triggering and there is no a lump or tenderness palpated at the bases of the fingers.?Additionally, there are no Dupuytren's or thickened tendons palpated. His TSH is within normal limits so that rules out thyroid being a concern which can also affect tendons. I will obtain nerve conduction studies and lab studies for further. I will also get updated xrays to evaluate for inflammatory features. Orders: Orders T Spot TB Today M15.4 - Erosive (osteo)arthritis Cyclic Citrullinated Peptide Today M15.4 - Erosive (osteo)arthritis Uric Acid Today M15.4 - Erosive (osteo)arthritis Complete Blood Count Auto Diff Today M15.4 - Erosive (osteo)arthritis Comprehensive Met. Panel Today M15.4 - Erosive (osteo)arthritis Erythrocyte Sedimentation Rate Today M15.4 - Erosive (osteo)arthritis C Reactive Protein Today M15.4 - Erosive (osteo)arthritis HLA B27 Today M15.4 - Erosive (osteo)arthritis Hepatitis A,B,C Profile Today M15.4 - Erosive (osteo)arthritis XR hand LT min 3V Today M25.541 - Pain in joints of right hand, M25.542 - Pain in joints of left hand, R20.0 - Anesthesia of skin XR hand RT min 3V Today M25.541 - Pain in joints of right hand, M25.542 - Pain in joints of left hand, R20.0 - Anesthesia of skin NE electromyogram (EMG) Today R20.0 - Anesthesia of skin, R25.2 - Cramp and spasm Coding Level of Care Code New Pt Level 4 (99639) Diagnoses Bilateral hand numbness R20.0 Arthralgia of hands, bilateral M25.541; M25.542 Spasms of the hands or feet R25.2 Diabetic neuropathic arthritis E11.610
== END 2023-05-20 14:15 | disposition home or self-care (01) ==
PROVIDERS: PCP Family Medicine; Visit Provider Nurse Practitioner Family
DX: R20.0 Anesthesia of skin (principal); M25.541 Pain in joints of right hand; M25.542 Pain in joints of left hand; R25.2 Cramp and spasm; E11.610 Type 2 diabetes mellitus with diabetic neuropathic arthropathy
CPT/HCPCS: 99204

== ENCOUNTER → 2023-05-20 13:24 | Outpatient (BNVA) | payer MEDICARE, MEDICAID, SELFPAY | PROVIDERS: PCP Family Medicine; Visit Provider Nurse Practitioner Family | DX: R20.0 Anesthesia of skin (principal); M25.541 Pain in joints of right hand; M25.542 Pain in joints of left hand; R25.2 Cramp and spasm; E11.610 Type 2 diabetes mellitus with diabetic neuropathic arthropathy | CPT/HCPCS: 99202 ==

== ENCOUNTER 2023-05-21 11:18 | Outpatient (REF) | payer MEDICARE, MEDICAID, SELFPAY ==
[2023-05-21 11:38] LABS: MANUAL DIFF FLAG NO
[2023-05-21 12:11] LABS: Basophils Absolute Auto 0.1 X10*3/uL (0.0-0.2); Eosinophils Absolute Auto 0.3 X10*3/uL (0.0-0.4); Eosinophils Percent Auto 4.5 % (0-4); Hematocrit 42.1 % (42.0-52.0); Hemoglobin 14.1 g/dl (14.0-18.0); Imm Gran Abs Auto 0.02 X10*3/uL (0.00-0.03); Imm Gran Pct Auto 0.3 % (0.0-0.4); Lymphocytes Absolute Auto 2.5 X10*3/uL (1.2-4.9); Lymphocytes Percent Auto 41.5 % (20-40); Mean Corpuscular HGB Conc 33.5 g/dl (31.0-36.0); Mean Corpuscular Hemoglobin 26.8 pg (27.0-33.0); Mean Corpuscular Volume 79.9 fL (80.0-98.0); Mean Platelet Volume 11.1 fL (9.4-12.4); Monocytes Absolute Auto 0.5 X10*3/uL (0.1-1.2); Monocytes Percent Auto 7.8 % (2-11); Neutrophils Absolute Auto 2.7 x10*3/uL (2.0-8.3); Neutrophils Percent Auto 43.9 % (45-73); Platelet Count 205 X10*3/uL (160-400); Red Blood Count 5.27 X10*6/uL (4.60-5.80); Red Cell Distribution Width 13.7 % (11.0-16.0); White Blood Count 6.1 X10*3/uL (4.8-10.8)
[2023-05-21 12:42] LABS: Alanine Aminotransferase 16 U/L (0-40); Albumin Level 4.2 g/dL (3.5-5.0); Alkaline Phosphatase 56 U/L (39-117); Anion Gap 12 (12-20); Aspartate Amino Transferase 15 U/L (5-37); Bilirubin Total 0.5 mg/dL (0.0-1.0); Blood Urea Nitrogen 30 mg/dL (9-16); C Reactive Protein 0.14 mg/dL (< or = 0.50); Calcium 9.9 mg/dL (8.4-10.2); Carbon Dioxide 25 mmol/L (22-29); Chloride 103 mmol/L (96-108); Estimated Glomerular Filt Rate 39; Glucose Random 245 mg/dL (60-115); Potassium 4.2 mmol/L (3.3-5.1); Sodium 136 mmol/L (135-145); Total Protein 7.1 g/dL (6.5-8.0); Uric Acid 7.7 mg/dL (3.4-7.0)
[2023-05-21 12:49] LABS: Appearance Urine Clear; Color Urine Yellow; Glucose Urine UA 100 mg/dL (Negative); Leukocyte Esterase Urine Negative (Negative); Nitrite Urine Negative (Negative); PH 5.5 (5.0-9.0); Urine Blood Negative (Negative); Urine Ketones Negative (Negative); Urine Protein Negative (Neg-Trace)
[2023-05-21 12:59] LABS: HBS Num1 2.82 mIU/mL (0-7.99); HBc Num1 0.06 S/CO (0.00-0.79); HBsAGNum1 0.43 S/CO (0.00-0.99); Hepatitis A Antibody IgM 0.22 Index (0-0.79); Hepatitis B Core Antibody Nonreactive (Nonreactive); Hepatitis B Surface Antigen Negative (Negative); ~HepC Num1 0.09 S/CO (0.00-0.79); ~Hepatitis A Antibody IgM Nonreactive (Nonreactive); ~Hepatitis B Surface Antibody NONREACTIVE (Nonreactive); ~Hepatitis C Antibody Nonreactive (Nonreactive)
[2023-05-21 13:02] LABS: Erythrocyte Sedimentation Rate 6 MM/HR (0-15)
[2023-05-21 14:21] LABS: Creatinine Urine 160.55 mg/dL; Total Protein Urine Random 14 mg/dL (<12)
[2023-05-24 15:53] LABS: TS Negative Control Passed; TS Panel A 1; TS Panel B 0; TS Positive Control Passed; TSpotTB Negative (Negative)
[2023-05-26 21:14] LABS: HLA B27 Negative (Negative)
[2023-05-27 11:54] LABS: Cyclic Citrullinated Peptide <16 UNITS
== END 2023-05-21 11:19 | disposition home or self-care (01) ==
LOC: HO.LAB 11:18
PROVIDERS: Absent Provider Internal Medicine Hypertension Specialist; PCP Family Medicine; Visit Provider Nurse Practitioner Family
DX: Z11.1 Encounter for screening for respiratory tuberculosis (principal); N18.9 Chronic kidney disease, unspecified; M15.4 Erosive (osteo)arthritis; M25.541 Pain in joints of right hand; M25.542 Pain in joints of left hand; R20.0 Anesthesia of skin; Z11.59 Encounter for screening for other viral diseases; Z72.89 Other problems related to lifestyle
CPT/HCPCS: 36415; 73130; 80053; 81003; 82570; 84156; 84550; 85025; 85652; 86140; 86200; 86481; 86704; 86706; 86709; 86803; 86812; 87340

== ENCOUNTER 2023-06-16 13:50 | Outpatient (AMB) | payer MEDICARE, SELFPAY ==
[2023-06-16 13:56] VITALS: BP 120/70; PULSE 70; O2SAT 100; BMI 28.7
--- NOTE | 2023-06-16 13:56 | HO.NEPHOV_ITS ---
HPI HPI Comments History of Present Illness Details 60 year old man with history of diabetes mellitus and hypertension for more than 15 years. He was found to have serum creatinine of 1.7 with EGFR of 13 mL/minute he has been a for further evaluation. 06/16/23 Doing well Lisinopril was lowered last visit [facility] Medical History Spasms of the hands or feet Claw hand Arthralgia of hands, bilateral Bilateral hand numbness Erosive (osteo)arthritis FHx: Alzheimer's disease Memory impairment Left foot pain Bilateral knee pain Transaminitis Type 2 diabetes mellitus Apical variant hypertrophic cardiomyopathy Hyperlipidemia Diabetes HTN (hypertension) Back pain Family History Other Alzheimer disease Social History Patient Tobacco Use Status: Never used Tobacco Vital Signs 06/16/23 13:56 Height 5 ft 10 in Weight 200 lb 2 oz BMI 28.7 BP 120/70 Blood Pressure Location Lt brachial Position Sitting Pulse 70 Pulse Source Pulse Oximeter Pulse Oximetry (%) 100 Oxygen Delivery Method Room Air Physical Exam Vital Signs: Last Vital Signs Pulse 70 06/16/23 13:56 BP 120/70 06/16/23 13:56 Pulse Ox 100 06/16/23 13:56 Oxygen Delivery Method Room Air 06/16/23 13:56 BMI result Body Mass Index 28.7 Const General: comfortable; No acute distress Orientation/consciousness: patient oriented x3 Eyes General: appearance normal, both eyes and all related structures Visual Carrillo: normal visual carrillo by confrontation Neck Neck: Yes supple and Yes no JVD Resp Effort & Inspection: normal respiratory effort and respiratory effort not decreased Auscultation: rhonchi Cardio Palpation: no palpable S3 and no palpable S4 Heart sounds: no rubs GI Inspection: Yes normal to inspection Palpation (GI): Soft to palpation Percussion: Yes normal to percussion Auscultation: normal bowel sounds General: Yes no CVA tenderness Back/Spine/Pelvis Back: no CVA tenderness Skin General skin exam: no petechiae and no purpura Neuro General: patient oriented x3 and no focal motor deficits Extrem General: No clubbing and No edema Assessment & Plan Assessment & Plan (1) CKD (chronic kidney disease): Code(s): N18.9 - Chronic kidney disease, unspecified Plan: CKD stage 3. Serum creatinine 1.7. Unchanged since last visit. (2) Apical variant hypertrophic cardiomyopathy: Code(s): I42.2 - Other hypertrophic cardiomyopathy Plan: Currently asymptomatic. Follows with cardiology (3) Diabetes: Code(s): E11.9 - Type 2 diabetes mellitus without complications Plan: Goal A1c less than 7%. Discussed importance of tight control blood sugar. (4) HTN (hypertension): Code(s): I10 - Essential (primary) hypertension Plan: History of hypertension blood pressure well controlled He stopped amlodipine 2 months ago. decreased lisinopril from 10 mg down to 5 mg in Apr 2023 and BP remains stable No changes today. Orders: Orders Electrolytes 3 Months N18.9 - Chronic kidney disease, unspecified Blood Urea Nitrogen 3 Months N18.9 - Chronic kidney disease, unspecified Calcium 3 Months N18.9 - Chronic kidney disease, unspecified Creatinine 3 Months N18.9 - Chronic kidney disease, unspecified Coding Level of Care Code Est Pt Level 4 (35832) Diagnoses CKD (chronic kidney disease) N18.9 Apical variant hypertrophic cardiomyopathy I42.2 Diabetes E11.9 HTN (hypertension) I10 Results Reviewed Nephrology Results: Hgb 14.1 g/dl (14.0-18.0) 05/21/23 WBC 6.1 X10*3/uL (4.8-10.8) 05/21/23 Plt Count 205 X10*3/uL (160-400) 05/21/23 Sodium 136 mmol/L (135-145) 05/21/23 Potassium 4.2 mmol/L (3.3-5.1) 05/21/23 Chloride 103 mmol/L (96-108) 05/21/23 Carbon Dioxide 25 mmol/L (22-29) 05/21/23 BUN 30 mg/dL (9-16) H 05/21/23 Creatinine 1.76 mg/dL (0.5-1.4) H 05/21/23 Calcium 9.9 mg/dL (8.4-10.2) 05/21/23 Urine Protein Negative mg/dL (Neg-Trace) 05/21/23 Urine Creatinine 160.55 mg/dL 05/21/23
== END 2023-06-16 14:10 | disposition home or self-care (01) ==
PROVIDERS: PCP Family Medicine; Visit Provider Internal Medicine Hypertension Specialist
DX: I12.9 Hypertensive chronic kidney disease with stage 1 through stage 4 chronic kidney disease, or unspecified chronic kidney disease (principal); N18.9 Chronic kidney disease, unspecified; I42.2 Other hypertrophic cardiomyopathy; E11.9 Type 2 diabetes mellitus without complications
CPT/HCPCS: 99214

== ENCOUNTER → 2023-06-16 13:50 | Outpatient (BNVA) | payer MEDICARE, MEDICAID, SELFPAY | PROVIDERS: PCP Family Medicine; Visit Provider Internal Medicine Hypertension Specialist | DX: I12.9 Hypertensive chronic kidney disease with stage 1 through stage 4 chronic kidney disease, or unspecified chronic kidney disease (principal); E11.22 Type 2 diabetes mellitus with diabetic chronic kidney disease; N18.30 Chronic kidney disease, stage 3 unspecified; I42.2 Other hypertrophic cardiomyopathy | CPT/HCPCS: 99212 ==

== ENCOUNTER 2023-07-02 14:14 | Outpatient (REF) | payer MEDICARE, MEDICAID, SELFPAY ==
--- NOTE | 2023-07-02 14:16 | EMG_ITS ---
Chief complaint: Bilateral hand numbness, mostly 1st to 3rd digits, worse with waking up in the morning and driving Reason for referral: Evaluate for Carpal Tunnel Syndrome Referred by: Marisel BATRES Procedure done: Bilateral upper extremities NCS/EMG Precautions and/or limitations: None The limb temperature was monitored continuously and remained between 32-36 degrees C during the performance of the NCS. Ulnar motor NCS was performed with moderate elbow flexion between 70-90 degrees, with across-elbow distance of 10 cm. Nerve Conduction Studies Anti Sensory Summary Table ?Stim Site NR Onset (ms) Norm Onset (ms) Peak (ms) Norm Peak (ms) O-P Amp (?V) Norm O-P Amp Site1 Site2 Delta-0 (ms) Dist (cm) Alexy (m/s) Norm Alexy (m/s) Left Median Anti Sensory (2nd Digit) Wrist ? 3.7 4.5 <3.6 10.3 >10 Wrist 2nd Digit 3.7 14.0 38 Right Median Anti Sensory (2nd Digit) Wrist ? 3.4 4.3 <3.6 9.2 >10 Wrist 2nd Digit 3.4 14.0 41 Left Radial Anti Sensory (Thumb) Forearm ? 2.1 2.7 <3.1 5.6 Forearm Thumb 2.1 0.0 Left Ulnar Anti Sensory (5th Digit) Wrist ? 2.8 3.6 <3.7 3.5 >15.0 Wrist 5th Digit 2.8 14.0 50 Right Ulnar Anti Sensory (5th Digit) Wrist ? 2.7 3.6 <3.7 1.8 >15.0 Wrist 5th Digit 2.7 14.0 52 Motor Summary Table ?Stim Site NR Onset (ms) Norm Onset (ms) O-P Amp (mV) Norm O-P Amp iAmp (mV) Amp (1st) (%) Site1 Site2 Delta-0 (ms) Dist (cm) Alexy (m/s) Norm Alexy (m/s) Left Median Motor (Abd Poll Brev) Wrist ? 4.5 <3.9 7.8 >4.5 9.8 100.0 Elbow Wrist 5.3 24.5 46 >45 Elbow ? 9.8 7.4 9.5 94.9 Right Median Motor (Abd Poll Brev) Wrist ? 4.6 <3.9 8.9 >4.5 10.6 100.0 Elbow Wrist 5.4 24.0 44 >45 Elbow ? 10.0 7.8 9.3 87.6 Right Ulnar Motor (Abd Dig Minimi) Wrist ? 3.0 <3.0 8.2 >5 11.1 100.0 B Elbow Wrist 5.4 24.0 44 >45 B Elbow ? 8.4 7.1 9.5 86.6 A Elbow B Elbow 1.5 10.0 67 >45 A Elbow ? 9.9 7.1 9.3 86.6 Left Ulnar Motor (FDI) Wrist ? 5.7 <3.0 2.3 >5 2.6 100.0 Wrist Abd Dig Minimi 5.7 22.0 39 B Elbow ? 10.6 1.6 2.3 69.6 B Elbow Wrist 4.9 10.0 20 >45 A Elbow ? 12.7 1.3 1.9 56.5 A Elbow B Elbow 2.1 0.0 >45 Right Ulnar Motor (FDI) Wrist ? 4.9 <3.0 8.3 >5 9.3 100.0 Wrist Abd Dig Minimi 4.9 24.0 49 B Elbow ? 10.2 7.5 8.6 90.4 B Elbow Wrist 5.3 10.0 19 >45 A Elbow ? 12.1 6.7 7.8 80.7 A Elbow B Elbow 1.9 0.0 >45 EMG ?Side Muscle Nerve Root Ins Act Fibs Psw Amp Dur Poly Recrt Int Pat Comment Right 1stDorInt Ulnar C8-T1 Nml Nml Nml Incr Incr 0 Nml Complete Right Biceps Musculocut C5-6 Nml Nml Nml Nml Nml 0 Nml Complete Right Triceps Radial C6-7-8 Nml Nml Nml Nml Nml 0 Nml Complete Right Deltoid Axillary C5-6 Nml Nml Nml Nml Nml 0 Nml Complete Left 1stDorInt Ulnar C8-T1 Nml Nml Nml Incr Incr 1+ Nml Complete Left Biceps Musculocut C5-6 Nml Nml Nml Nml Nml 0 Nml Complete Left Triceps Radial C6-7-8 Nml Nml Nml Nml Nml 0 Nml Complete Left Deltoid Axillary C5-6 Nml Nml Nml Nml Nml 0 Nml Complete Left FlexCarpiUln Ulnar C8,T1 Nml Nml Nml Nml Nml 0 Nml Complete Right FlexCarpiUln Ulnar C8,T1 Nml Nml Nml Nml Nml 0 Nml Complete FINDINGS: Right median motor nerve showed prolonged distal latency, normal amplitude and slow conduction velocity. Left median motor nerve showed prolonged distal latency, normal amplitude and normal conduction velocity. Right ulnar motor nerve, recording FDI, showed prolonged distal latency, normal amplitude and slow conduction velocity across the elbow. Left ulnar motor nerve, recording FDI, showed prolonged distal latency, small amplitude and slow conduction velocity across the elbow. Bilateral median sensory nerve showed prolonged peak latency. Bilateral ulnar sensory nerves showed small amplitude. All other nerves tested were within normal. Concentric needle EMG was performed in selected muscles of the bilateral upper extremities. Study revealed Signs of electric abnormalities as shown in the table below. Left FDI showed increased amplitude, duration and polyphasia. Right FDI showed increased amplitude and duration. IMPRESSION: 1. This is an abnormal study. 2. There is electrodiagnostic evidence for bilateral ulnar neuropathy at the elbow. 3. There is electrodiagnostic evidence for bilateral median neuropathy at the wrist, consistent with Carpal Tunnel Syndrome. 4. There is no electrodiagnostic evidence for brachial plexopathy, or cervical radiculopathy. Thank you for your kind referral. Judy Gil MD, JABARI Board Certified, [place] [employer] and Rehabilitation (ABPMR) Board Certified, [place] [employer] Electrodiagnostic Medicine (ABEM) CODIN [id number] x 2 MTDD
== END 2023-07-02 14:15 | disposition home or self-care (01) ==
LOC: HO.NEURO 14:14
PROVIDERS: PCP Family Medicine; Visit Provider Nurse Practitioner Family
DX: R20.0 Anesthesia of skin (principal); R25.2 Cramp and spasm
CPT/HCPCS: 95886; 95911

== ENCOUNTER → 2023-07-02 14:16 | Outpatient (BNV) | payer MEDICARE, SELFPAY | PROVIDERS: PCP Family Medicine; Visit Provider Physical Medicine & Rehabilitation | DX: G56.03 Carpal tunnel syndrome, bilateral upper limbs (principal); G56.23 Lesion of ulnar nerve, bilateral upper limbs; G56.13 Other lesions of median nerve, bilateral upper limbs | CPT/HCPCS: 95886; 95911 ==

== ENCOUNTER 2023-07-16 15:55 | Emergency (ER) | payer MEDICARE, MEDICAID, SELFPAY ==
[2023-07-16 16:30] VITALS: BP 122/67; PULSE 82; RESP 16; TEMP 36.2; O2SAT 95; BMI 29.1
--- NOTE | 2023-07-16 16:31 | ED.GENADULT ---
HPI - General Adult General Chief complaint: Abdominal Pain Stated complaint: stomach cramping since last night Related Data Home Medications Medication Instructions Recorded Confirmed metformin 500 mg tablet,extended 1,000 mg PO BID 04/10/22 04/16/23 release 24 hr sitagliptin phosphate 100 mg 100 mg PO DAILY 04/10/22 04/16/23 tablet (Januvia) Fish Oil 05/12/22 04/16/23 Vitamin D3 05/12/22 04/16/23 cyanocobalamin (vitamin B-12) 1 tab PO DAILY 05/12/22 04/16/23 1,000 mcg tablet aspirin 81 mg chewable tablet 1 tab PO DAILY 04/16/23 04/16/23 lisinopril 10 mg tablet 5 mg PO DAILY 04/28/23 04/28/23 atorvastatin 20 mg tablet 10 mg PO DAILY 05/20/23 glipizide 5 mg tablet 2.5 mg PO DAILY 06/16/23 Allergies Allergy/AdvReac Type Severity Reaction Status Date / Time No Known Allergies Allergy Verified 07/16/23 16:33 [facility] Past Medical History Medical History Spasms of the hands or feet Claw hand Arthralgia of hands, bilateral Bilateral hand numbness Erosive (osteo)arthritis FHx: Alzheimer's disease Memory impairment Left foot pain Bilateral knee pain Transaminitis Type 2 diabetes mellitus Apical variant hypertrophic cardiomyopathy Hyperlipidemia Diabetes HTN (hypertension) Back pain Family History Family History Other Alzheimer disease Social History Social History Patient Tobacco Use Status: Never used Tobacco Advance Directives: No Advance Directives Information Provided: No Physical Exam ED Vital Signs: Vital Signs - 24 hr 07/16/23 16:30 Temperature 97.2 F Pulse Rate 82 Respiratory Rate 16 Blood Pressure 122/67 Pulse Oximetry 95 Oxygen Delivery Method Room Air BMI result Body Mass Index 29.1 Course Course Course Narrative: This is a rapid medical exam: Additional HPI, ROS, PE not included below will be deferred to primary provider. Patient is a 68-year-old male with history of DM, CKD, HTN presenting to the ED with complaint of intermittent lower abdominal cramping since last night. Denies any nausea, vomiting, diarrhea, or constipation. Denies urinary symptoms. Plan: labs, UA, viral swabs Medical Decision Making Lab Data 07/16/23 17:45 07/16/23 17:45 Labs: Lab Results 07/16/23 07/16/23 Range/Units 17:45 17:50 WBC 10.7 (4.8-10.8) X10*3/uL RBC 5.11 (4.60-5.80) X10*6/uL Hgb 14.2 (14.0-18.0) g/dl Hct 40.8 L (42.0-52.0) % MCV 79.8 L (80.0-98.0) fL MCH 27.8 (27.0-33.0) pg MCHC 34.8 (31.0-36.0) g/dl RDW 14.1 (11.0-16.0) % Plt Count 205 (160-400) X10*3/uL MPV 11.2 (9.4-12.4) fL Immature Gran % (Auto) 1.2 H (0.0-0.4) % Neut % (Auto) 70.0 (45-73) % Lymph % (Auto) 18.5 L (20-40) % Campbell % (Auto) 7.0 (2-11) % Eos % (Auto) 2.4 (0-4) % Baso % (Auto) 0.9 (0-2) % Lymph # (Auto) 2.0 (1.2-4.9) X10*3/uL [place] # (Auto) 0.8 (0.1-1.2) X10*3/uL Eos # (Auto) 0.3 (0.0-0.4) X10*3/uL Baso # (Auto) 0.1 (0.0-0.2) X10*3/uL Abs Immat Gran (auto) 0.13 H (0.00-0.03) X10*3/uL Absolute Neuts (auto) 7.5 (2.0-8.3) x10*3/uL Absolute Nucleated RBC 0.000 (0.0-0.012) X10*3/uL Nucleated RBC % (auto) 0.0 (0.0-0.2) /100WBC PT 13.0 (11.1-13.3) SEC INR 1.1 (0.9-1.1) Sodium 136 (135-145) mmol/L Potassium 4.4 (3.3-5.1) mmol/L Chloride 105 (96-108) mmol/L Carbon Dioxide 23 (22-29) mmol/L Anion Gap 12 (12-20) BUN 30 H (9-16) mg/dL Creatinine 1.56 H (0.5-1.4) mg/dL Estim Creat Clear Calc 53.2 Estimated GFR 44 Random Glucose 115 (60-115) mg/dL Calcium 9.8 (8.4-10.2) mg/dL Total Bilirubin 0.5 (0.0-1.0) mg/dL AST 18 (5-37) U/L ALT 17 (0-40) U/L Alkaline Phosphatase 53 (39-117) U/L Total Protein 7.5 (6.5-8.0) g/dL Albumin 4.3 (3.5-5.0) g/dL Urine Color Yellow Urine Appearance Clear Urine pH 5.5 (5.0-9.0) Ur Specific [place] 1.010 (1.005-1.025) Urine Protein Negative (Neg-Trace) mg/dL Urine Glucose (UA) Negative (Negative) mg/dL Urine Ketones Negative (Negative) mg/dL Urine Blood Negative (Negative) Urine Nitrite Negative (Negative) Ur Leukocyte Esterase Negative (Negative) COVID-19 (MILA) Negative (Negative) COVID-19 Clin Com See Note Influenza Type A (TRACIE) Negative (Negative) Influenza Type B (TRACIE) Negative (Negative) Influenza A & B Note See Note Discharge Plan Discharge Clinical Impression: Abdominal pain Patient Disposition: Left W/O Completing Treatment Prescriptions: No Action cyanocobalamin (vitamin B-12) 1,000 mcg tablet 1 tab PO DAILY Fish Oil Vitamin D3 aspirin 81 mg tablet,chewable 1 tab PO DAILY metformin 500 mg tablet extended release 24 hr 1,000 mg PO BID Januvia 100 mg tablet 100 mg PO DAILY lisinopril 10 mg tablet 5 mg PO DAILY atorvastatin 20 mg tablet 10 mg PO DAILY glipizide 5 mg tablet 2.5 mg PO DAILY Discharge Date/Time: 07/16/23 18:48
[2023-07-16 17:50] LABS: MANUAL DIFF FLAG NO
[2023-07-16 17:57] LABS: Appearance Urine Clear; Color Urine Yellow; Glucose Urine UA Negative (Negative); Leukocyte Esterase Urine Negative (Negative); Nitrite Urine Negative (Negative); PH 5.5 (5.0-9.0); Urine Blood Negative (Negative); Urine Ketones Negative (Negative); Urine Protein Negative (Neg-Trace)
[2023-07-16 18:02] LABS: INTERNATIONAL NORM RATIO 1.1 (0.9-1.1)
[2023-07-16 18:07] LABS: Alanine Aminotransferase 17 U/L (0-40); Albumin Level 4.3 g/dL (3.5-5.0); Alkaline Phosphatase 53 U/L (39-117); Anion Gap 12 (12-20); Aspartate Amino Transferase 18 U/L (5-37); Bilirubin Total 0.5 mg/dL (0.0-1.0); Blood Urea Nitrogen 30 mg/dL (9-16); Calcium 9.8 mg/dL (8.4-10.2); Carbon Dioxide 23 mmol/L (22-29); Chloride 105 mmol/L (96-108); Creatinine Clr Calc Pharmacy 53.2; Estimated Glomerular Filt Rate 44; Glucose Random 115 mg/dL (60-115); Potassium 4.4 mmol/L (3.3-5.1); Sodium 136 mmol/L (135-145); Total Protein 7.5 g/dL (6.5-8.0)
[2023-07-16 18:11] LABS: COVID-19 Test Negative (Negative); IDNOW Serial# 08D9AD1C; IDNOW Serial# 152EDE1D; Influenza A Negative (Negative); Influenza B2 Negative (Negative)
[2023-07-16 18:14] LABS: Basophils Absolute Auto 0.1 X10*3/uL (0.0-0.2); Basophils Percent Auto 0.9 % (0-2); Eosinophils Absolute Auto 0.3 X10*3/uL (0.0-0.4); Eosinophils Percent Auto 2.4 % (0-4); Hematocrit 40.8 % (42.0-52.0); Hemoglobin 14.2 g/dl (14.0-18.0); Imm Gran Abs Auto 0.13 X10*3/uL (0.00-0.03); Imm Gran Pct Auto 1.2 % (0.0-0.4); Lymphocytes Percent Auto 18.5 % (20-40); Mean Corpuscular HGB Conc 34.8 g/dl (31.0-36.0); Mean Corpuscular Hemoglobin 27.8 pg (27.0-33.0); Mean Corpuscular Volume 79.8 fL (80.0-98.0); Mean Platelet Volume 11.2 fL (9.4-12.4); Monocytes Absolute Auto 0.8 X10*3/uL (0.1-1.2); Neutrophils Absolute Auto 7.5 x10*3/uL (2.0-8.3); Platelet Count 205 X10*3/uL (160-400); Red Blood Count 5.11 X10*6/uL (4.60-5.80); Red Cell Distribution Width 14.1 % (11.0-16.0); White Blood Count 10.7 X10*3/uL (4.8-10.8)
== END 2023-07-16 18:48 | disposition left against medical advice (07) ==
PROVIDERS: Registered Nurse Emergency; Emergency Provider Emergency Medicine; PCP Family Medicine
DX: R10.9 Unspecified abdominal pain (principal); Z11.52 Encounter for screening for COVID-19; E11.9 Type 2 diabetes mellitus without complications; I10 Essential (primary) hypertension; E78.5 Hyperlipidemia, unspecified; Z79.82 Long term (current) use of aspirin; Z79.84 Long term (current) use of oral hypoglycemic drugs; Z79.02 Long term (current) use of antithrombotics/antiplatelets
CPT/HCPCS: 80053; 81003; 85025; 85610; 87502; 87635; 99282; 99283

== ENCOUNTER 2023-09-11 12:39 | Outpatient (REF) | payer MEDICARE, MEDICAID, SELFPAY ==
[2023-09-11 14:05] LABS: Anion Gap 12 (12-20); Blood Urea Nitrogen 24 mg/dL (9-16); Calcium 9.7 mg/dL (8.4-10.2); Carbon Dioxide 25 mmol/L (22-29); Chloride 105 mmol/L (96-108); Estimated Glomerular Filt Rate 47; Potassium 4.4 mmol/L (3.3-5.1); Sodium 138 mmol/L (135-145)
== END 2023-09-11 12:40 | disposition home or self-care (01) ==
LOC: HO.LAB 12:39
PROVIDERS: Visit Provider Internal Medicine Hypertension Specialist
DX: N18.9 Chronic kidney disease, unspecified (principal)
CPT/HCPCS: 36415; 80051; 82310; 82565; 84520

== ENCOUNTER 2023-09-15 13:52 | Outpatient (AMB) | payer MEDICARE, MEDICAID, SELFPAY ==
[2023-09-15 13:53] VITALS: BP 118/70; PULSE 85; O2SAT 98; BMI 28.7
--- NOTE | 2023-09-15 13:53 | HO.NEPHOV_ITS ---
HPI HPI Comments History of Present Illness Details 60 year old man with history of diabetes mellitus and hypertension for more than 15 years. He was found to have serum creatinine of 1.7 with EGFR of 13 mL/minute he has been a for further evaluation. 06/16/23 Doing well Lisinopril was lowered last visit [facility] Medical History Spasms of the hands or feet Claw hand Arthralgia of hands, bilateral Bilateral hand numbness Erosive (osteo)arthritis FHx: Alzheimer's disease Memory impairment Left foot pain Bilateral knee pain Transaminitis Type 2 diabetes mellitus Apical variant hypertrophic cardiomyopathy Hyperlipidemia Diabetes HTN (hypertension) Back pain Family History Other Alzheimer disease Social History Patient Tobacco Use Status: Never used Tobacco Vital Signs 09/15/23 13:53 Height 5 ft 11 in Weight 205 lb 8 oz BMI 28.7 BP 118/70 Blood Pressure Location Rt brachial Position Sitting Pulse 85 Pulse Source Pulse Oximeter Pulse Oximetry (%) 98 Oxygen Delivery Method Room Air Physical Exam Vital Signs: Last Vital Signs Pulse 85 09/15/23 13:53 BP 118/70 09/15/23 13:53 Pulse Ox 98 09/15/23 13:53 Oxygen Delivery Method Room Air 09/15/23 13:53 BMI result Body Mass Index 28.7 Const General: comfortable; No acute distress Orientation/consciousness: patient oriented x3 Eyes General: appearance normal, both eyes and all related structures Visual Carrillo: normal visual carrillo by confrontation Neck Neck: Yes supple and Yes no JVD Resp Effort & Inspection: normal respiratory effort and respiratory effort not decreased Auscultation: rhonchi Cardio Palpation: no palpable S3 and no palpable S4 Heart sounds: no rubs GI Inspection: Yes normal to inspection Palpation (GI): Soft to palpation Percussion: Yes normal to percussion Auscultation: normal bowel sounds General: Yes no CVA tenderness Back/Spine/Pelvis Back: no CVA tenderness Skin General skin exam: no petechiae and no purpura Neuro General: patient oriented x3 and no focal motor deficits Extrem General: No clubbing and No edema Assessment & Plan Assessment & Plan (1) CKD (chronic kidney disease): Code(s): N18.9 - Chronic kidney disease, unspecified Plan: CKD stage 3. Serum creatinine down to 1.5 from 1.7. After lowering lisinopril He has no significant hematuria or proteinuria. Microalbuminuria and creatinine ratio is less than 21. We can safely stop the lisinopril 5 mg daily and watch his blood pressure. (2) Apical variant hypertrophic cardiomyopathy: Code(s): I42.2 - Other hypertrophic cardiomyopathy Plan: Currently asymptomatic. Follows with cardiology (3) Diabetes: Code(s): E11.9 - Type 2 diabetes mellitus without complications Plan: Goal A1c less than 7%. Discussed importance of tight control blood sugar. (4) HTN (hypertension): Code(s): I10 - Essential (primary) hypertension Plan: History of hypertension blood pressure well controlled He stopped amlodipine 2 months ago. decreased lisinopril from 10 mg down to 5 mg in Apr 2023 and BP remains stable No changes today. Orders: Orders Basic Metabolic Panel 6 Months N18.9 - Chronic kidney disease, unspecified Total Protein Urine Random 6 Months N18.9 - Chronic kidney disease, unspecified Creatinine Urine 6 Months N05.9 - Unspecified nephritic syndrome with unspecified morphologic changes, N18.9 - Chronic kidney disease, unspecified UA and rflx microscopic 6 Months N18.9 - Chronic kidney disease, unspecified Coding Level of Care Code Est Pt Level 4 (14451) Diagnoses CKD (chronic kidney disease) N18.9 Apical variant hypertrophic cardiomyopathy I42.2 Diabetes E11.9 HTN (hypertension) I10 Results Reviewed Nephrology Results: Hgb 14.2 g/dl (14.0-18.0) 07/16/23 WBC 10.7 X10*3/uL (4.8-10.8) 07/16/23 Plt Count 205 X10*3/uL (160-400) 07/16/23 Sodium 138 mmol/L (135-145) 09/11/23 Potassium 4.4 mmol/L (3.3-5.1) 09/11/23 Chloride 105 mmol/L (96-108) 09/11/23 Carbon Dioxide 25 mmol/L (22-29) 09/11/23 BUN 24 mg/dL (9-16) H 09/11/23 Creatinine 1.50 mg/dL (0.5-1.4) H 09/11/23 Calcium 9.7 mg/dL (8.4-10.2) 09/11/23 Urine Protein Negative mg/dL (Neg-Trace) 07/16/23 Urine Creatinine 160.55 mg/dL 05/21/23
== END 2023-09-15 14:07 | disposition home or self-care (01) ==
PROVIDERS: PCP Family Medicine; Visit Provider Internal Medicine Hypertension Specialist
DX: I12.9 Hypertensive chronic kidney disease with stage 1 through stage 4 chronic kidney disease, or unspecified chronic kidney disease (principal); N18.9 Chronic kidney disease, unspecified; I42.2 Other hypertrophic cardiomyopathy; E11.9 Type 2 diabetes mellitus without complications
CPT/HCPCS: 99214

== ENCOUNTER → 2023-09-15 13:52 | Outpatient (BNVA) | payer MEDICARE, MEDICAID, SELFPAY | PROVIDERS: PCP Family Medicine; Visit Provider Internal Medicine Hypertension Specialist | DX: E11.22 Type 2 diabetes mellitus with diabetic chronic kidney disease (principal); I12.9 Hypertensive chronic kidney disease with stage 1 through stage 4 chronic kidney disease, or unspecified chronic kidney disease; N18.9 Chronic kidney disease, unspecified; I42.2 Other hypertrophic cardiomyopathy | CPT/HCPCS: 99212 ==

== ENCOUNTER 2024-03-09 12:40 | Outpatient (REF) | payer MEDICARE, SELFPAY ==
[2024-03-09 13:25] LABS: Appearance Urine Clear; Color Urine Yellow; Glucose Urine UA 100 mg/dL (Negative); Leukocyte Esterase Urine Negative (Negative); Nitrite Urine Negative (Negative); PH 5.5 (5.0-9.0); Specific Gravity - Urine 1.025 (1.005-1.025); UMIC TRIGGER UA YES; Urine Blood Negative (Negative); Urine Ketones Negative (Negative); Urine Protein 30 (1+) mg/dL (Neg-Trace)
[2024-03-09 13:30] LABS: Bacteria Urine None Seen (None Seen); Hyaline Casts Urine 0-2 /LPF (0-2); RBC Urine 0-2 /HPF (0-2); Squamous Epithelial Cell Urine 0-2 /HPF (0-2); WBC Urine 0-5 /HPF (0-5)
[2024-03-09 14:22] LABS: Alanine Aminotransferase 32 U/L (0-40); Albumin Level 4.2 g/dL (3.5-5.0); Alkaline Phosphatase 51 U/L (39-117); Anion Gap 10 (12-20); Aspartate Amino Transferase 17 U/L (5-37); Bilirubin Total 0.5 mg/dL (0.0-1.0); Blood Urea Nitrogen 19 mg/dL (9-16); Calcium 9.1 mg/dL (8.4-10.2); Carbon Dioxide 26 mmol/L (22-29); Chloride 107 mmol/L (96-108); Estimated Glomerular Filt Rate 49; Glucose Random 183 mg/dL (60-115); Potassium 4.2 mmol/L (3.3-5.1); Sodium 139 mmol/L (135-145)
[2024-03-09 14:25] LABS: Creatinine Urine 232.27 mg/dL; Total Protein Urine Random 47 mg/dL (<12)
[2024-03-09 14:25] LABS: Cholesterol 146 mg/dL (<200); HDL Cholesterol 43 mg/dL (>40); LDL Cholesterol Calculated 82 mg/dL (<100); Triglycerides 108 mg/dL (<150)
[2024-03-09 14:26] LABS: Creatinine Urine 231.32 mg/dL; Microalbum/Creatinine Ratio Ur 92.5 ug/mg cr (<30)
[2024-03-09 14:39] LABS: Folate 12.5 ng/mL (> or = 4.0); Vitamin B12 1700 pg/mL (200-900)
[2024-03-09 14:47] LABS: Reflex LDLD? No
== END 2024-03-09 12:41 | disposition home or self-care (01) ==
LOC: HO.LAB 12:40
PROVIDERS: PCP Family Medicine; Visit Provider Internal Medicine Hypertension Specialist
DX: N05.9 Unspecified nephritic syndrome with unspecified morphologic changes (principal); E11.22 Type 2 diabetes mellitus with diabetic chronic kidney disease; I12.9 Hypertensive chronic kidney disease with stage 1 through stage 4 chronic kidney disease, or unspecified chronic kidney disease; N18.32 Chronic kidney disease, stage 3b; E78.5 Hyperlipidemia, unspecified; K76.0 Fatty (change of) liver, not elsewhere classified; R41.3 Other amnesia
CPT/HCPCS: 36415; 80053; 80061; 81001; 82043; 82570; 82607; 82746; 84156

== ENCOUNTER 2024-03-10 14:07 | Outpatient (AMB) | payer MEDICARE, SELFPAY ==
[2024-03-10 14:19] VITALS: BP 120/70; PULSE 90; O2SAT 98; BMI 29.3
--- NOTE | 2024-03-10 14:19 | HO.NEPHOV_ITS ---
Vital Signs 03/10/24 14:19 Height 5 ft 11 in Weight 210 lb BMI 29.3 BP 120/70 Blood Pressure Location Rt brachial Position Sitting Pulse 90 Pulse Source Pulse Oximeter Pulse Oximetry (%) 98 Oxygen Delivery Method Room Air Intake Visit Reasons: CKD/ 6 MO FU/ Conf Health Unit Coordinator Required: No Allergies No Known Allergies Allergy (Verified 03/10/24 14:21) Medication List - Last Reconciled 03/10/24 by Steve Kohler MD aspirin 1 tab PO DAILY atorvastatin 10 mg PO DAILY cyanocobalamin (vitamin B-12) 1 tab PO DAILY [Fish Oil ] gabapentin 300 mg PO DAILY PRN glipizide ER 5 mg PO DAILY lisinopril 5 mg PO DAILY metformin ER 1,000 mg PO BID sitagliptin phosphate (Januvia) 50 mg PO DAILY [Vitamin D3 ] HPI Comments Details: 60 year old man with history of diabetes mellitus and hypertension for more than 15 years. He was found to have serum creatinine of 1.7 with EGFR of 13 mL/minute he has been a for further evaluation. 03/10/24 Doing well.NO new issues [facility] Medical History Spasms of the hands or feet Claw hand Arthralgia of hands, bilateral Bilateral hand numbness Erosive (osteo)arthritis FHx: Alzheimer's disease Memory impairment Left foot pain Bilateral knee pain Transaminitis Type 2 diabetes mellitus Apical variant hypertrophic cardiomyopathy Hyperlipidemia Diabetes HTN (hypertension) Back pain Family History Other Alzheimer disease Social History Patient Tobacco Use Status: Never used Tobacco Physical Exam Vital Signs: Last Vital Signs Pulse 90 03/10/24 14:19 BP 120/70 03/10/24 14:19 Pulse Ox 98 03/10/24 14:19 Oxygen Delivery Method Room Air 03/10/24 14:19 BMI result Body Mass Index 29.3 Results Reviewed Nephrology Results: Hgb 14.2 g/dl (14.0-18.0) 07/16/23 WBC 10.7 X10*3/uL (4.8-10.8) 07/16/23 Plt Count 205 X10*3/uL (160-400) 07/16/23 Sodium 139 mmol/L (135-145) 03/09/24 Potassium 4.2 mmol/L (3.3-5.1) 03/09/24 Chloride 107 mmol/L (96-108) 03/09/24 Carbon Dioxide 26 mmol/L (22-29) 03/09/24 BUN 19 mg/dL (9-16) H 03/09/24 Creatinine 1.44 mg/dL (0.5-1.4) H 03/09/24 Calcium 9.1 mg/dL (8.4-10.2) 03/09/24 Urine Protein 30 (1+) mg/dL (Neg-Trace) H 03/09/24 Urine Creatinine 231.32 mg/dL 03/09/24 Assessment & Plan Assessment & Plan (1) CKD (chronic kidney disease): Code(s): N18.9 - Chronic kidney disease, unspecified Category: Medical Plan: CKD stage 3. Serum creatinine down to 1.4 from 1.7. After lowering lisinopril He has no significant hematuria or proteinuria. He would benefit from SGLT-2 inhibitors (2) Apical variant hypertrophic cardiomyopathy: Code(s): I42.2 - Other hypertrophic cardiomyopathy Category: Medical Plan: Currently asymptomatic. Follows with cardiology (3) Diabetes: Code(s): E11.9 - Type 2 diabetes mellitus without complications Category: Medical Plan: Goal A1c less than 7%. Discussed importance of tight control blood sugar. (4) HTN (hypertension): Code(s): I10 - Essential (primary) hypertension Category: Medical Plan: History of hypertension blood pressure well controlled No changes today. Orders: Orders UA and rflx microscopic Today E11.9 - Type 2 diabetes mellitus without complications, N18.9 - Chronic kidney disease, unspecified Creatinine Urine Today E11.9 - Type 2 diabetes mellitus without complications, N18.9 - Chronic kidney disease, unspecified Basic Metabolic Panel 6 Months E11.9 - Type 2 diabetes mellitus without complications, N18.9 - Chronic kidney disease, unspecified Total Protein Urine Random Today E11.9 - Type 2 diabetes mellitus without complications, N18.9 - Chronic kidney disease, unspecified Coding Level of Care Code Est Pt Level 4 (49372) Diagnoses CKD (chronic kidney disease) N18.9 Apical variant hypertrophic cardiomyopathy I42.2 Diabetes E11.9 HTN (hypertension) I10
== END 2024-03-10 14:36 | disposition home or self-care (01) ==
PROVIDERS: PCP Family Medicine; Visit Provider Internal Medicine Hypertension Specialist
DX: I42.2 Other hypertrophic cardiomyopathy (principal); I12.9 Hypertensive chronic kidney disease with stage 1 through stage 4 chronic kidney disease, or unspecified chronic kidney disease; E11.22 Type 2 diabetes mellitus with diabetic chronic kidney disease; N18.9 Chronic kidney disease, unspecified
CPT/HCPCS: 99213

== ENCOUNTER → 2024-03-10 14:07 | Outpatient (BNVA) | payer MEDICARE, SELFPAY | PROVIDERS: PCP Family Medicine; Visit Provider Internal Medicine Hypertension Specialist | DX: E11.22 Type 2 diabetes mellitus with diabetic chronic kidney disease (principal); I12.9 Hypertensive chronic kidney disease with stage 1 through stage 4 chronic kidney disease, or unspecified chronic kidney disease; N18.30 Chronic kidney disease, stage 3 unspecified; I42.2 Other hypertrophic cardiomyopathy | CPT/HCPCS: 99212 ==

== ENCOUNTER → 2024-03-30 14:02 | Outpatient (REF) | payer MEDICARE, SELFPAY ==
--- NOTE | 2024-03-30 14:05 | CA_ITS ---
Transthoracic Echocardiogram Patient (Last, First, Middle): Prabhu Esquivel, Gender: Male Date of : 1955 Age: 69 Procedure Date: 03/30/2024 Procedure Type: Transthoracic Echocardiogram Location: OP Height: 177.8 cm Weight: 94.8 kg BSA: 2.13 m2 Heart Rate: bpm BP: 128 / 74 mmHg Disaster Director: TO Referring MD: Fercho Gordon MD Symptoms: I42.2 - Other hypertrophic cardiomyopathy Study Quality: Fair/Contrast ECG Rhythm: Sinus Conclusions: - The left ventricular systolic function is hyperdynamic. The visually estimated ejection fraction is >70%. - Left ventricular hypertrophy pattern suggestive of apical hypertrophic cardiomyopathy. - No obvious valvular pathology seen on this study. - Large plaque is seen in the ascending aorta. Findings Procedure Information Contrast agent, definity, is being given per protocol without apparent complications. The study quality is limited by patients body habitus. Left Ventricle Normal left ventricular cavity size. The left ventricular systolic function is hyperdynamic. The visually estimated ejection fraction is >70%. There is no dynamic left ventricular obstruction. There is no dynamic left ventricular outflow tract obstruction. Diastolic function is normal for age. Left ventricular hypertrophy pattern suggestive of apical hypertrophic cardiomyopathy. Septal thickness at the mid septum about 1.4 cm. Right Ventricle Normal right ventricular cavity size and systolic function. Atria Both atria are normal in size. Aortic Valve There is a normal trileaflet aortic valve. There is no aortic valve stenosis. There is no aortic valve regurgitation. Mitral Valve The mitral valve appears normal. There is no mitral valve regurgitation. There is no mitral valve stenosis. Pulmonic Valve The pulmonic valve is likely normal. Tricuspid Valve There is trace tricuspid valve regurgitation. There is no evidence of pulmonary hypertension. Great Vessels The aortic arch is normal in size. Large plaque is seen in the ascending aorta. Venous The inferior vena cava is normal in size and collapses greater than 50% with inspiration. Pericardium/Pleural There is no evidence of pericardial effusion. Prior Study Comparison No significant change compared to prior study dated: 05/14/2022. Recommendations, Care & Conclusions No obvious valvular pathology seen on this study. Measurements 2D Linear Measurements IVSd: 1.48 0.6-0.9/0.6-1.0 cm LVIDd: 3.88 3.9-5.3/4.2-5.9 cm LVIDd Index: 1.82 2.4-3.2/2.2-3.1 cm/m2 LVIDs: 2.00 2.0-3.6 cm LVPWd: 1.12 0.7-1.1 cm LA Diam: 2.50 2.7-3.8/3.0-4.0 cm LAIDs Index: 1.17 1.5-2.3 cm/m2 LV Mass: 222.23 67-162/88-224 g LV Mass Index: 104.34 43-95/49-115 g/m2 LVOT Diam: 2.30 3.0+(-)1.3 cm Mitral Valve MV Pk E: 0.42 MV PK A: 0.63 MV Decel Time: 164.00 E/A: 0.70 E'Lateral: 4.46 E'Medial: 3.81 E/E' Med: 10.90 E/E' Lat: 9.30 PHT: 48.00 MVA PHT: 4.58 Decel [place]: 2.53 Aortic Valve AoV Pk Alexy: 1.29 AoV Mn Alexy: 0.88 AoV VTI: 0.22 AoV Pk Grad: 7.00 Aov Mn Grad: 4.00 YAYO Cont.VTI: 3.47 LVOT LVOT Pk Alexy: 1.10 LVOT Mn Alexy: 0.77 LVOT VTI: 0.18 LVOT Pk Grad: 5.00 LVOT Mn Grad: 3.00 LVOT Diam: 2.30 LVOT Area: 4.15 Diastolic Function MV Pk E: 0.42 MV Pk A: 0.63 E/A: 0.70 E'Medial: 3.81 E/E' Med: 10.90 E' Laterial: 4.46 E/E' Lat: 9.30 Right Ventricle TAPSE (mm): 24.00 TVS' Alexy: 14.60 Tricuspid Valve RA Press: 3.00 Great Vessels Aorta Sinus of Valsalva: 4.00 2.0-3.5 cm Ao Asc: 4.00 2.1-3.4 cm Ao Arch: 3.20 Updated in Other Vendor System with Status of Final Josep Dao MD electronically signed on 04/03/2024 11:03:57 AM with status of Final
== END ==
LOC: HO.CARD 14:02
PROVIDERS: PCP Family Medicine; Visit Provider Internal Medicine Cardiovascular Disease
DX: I42.2 Other hypertrophic cardiomyopathy (principal)
CPT/HCPCS: 93306; Q9957

== ENCOUNTER → 2024-03-30 14:05 | Outpatient (BNV) | payer MEDICARE, SELFPAY | PROVIDERS: PCP Family Medicine; Visit Provider Internal Medicine | DX: I42.2 Other hypertrophic cardiomyopathy (principal) | CPT/HCPCS: 93306 ==

== ENCOUNTER 2024-08-19 13:50 | Outpatient (REF) | payer MEDICARE, SELFPAY ==
[2024-08-19 15:00] LABS: Anion Gap 12 (12-20); Blood Urea Nitrogen 25 mg/dL (9-16); Calcium 9.9 mg/dL (8.4-10.2); Carbon Dioxide 25 mmol/L (22-29); Chloride 105 mmol/L (96-108); Estimated Glomerular Filt Rate 40; Glucose Random 316 mg/dL (60-115); Potassium 4.4 mmol/L (3.3-5.1); Sodium 138 mmol/L (135-145)
== END 2024-08-19 13:51 | disposition home or self-care (01) ==
LOC: HO.LAB 13:50
PROVIDERS: PCP Family Medicine; Visit Provider Internal Medicine Hypertension Specialist
DX: N18.9 Chronic kidney disease, unspecified (principal)
CPT/HCPCS: 36415; 80048

== ENCOUNTER 2024-08-22 14:16 | Outpatient (AMB) | payer MEDICARE, SELFPAY ==
[2024-08-22 14:19] VITALS: BP 118/78; PULSE 99; O2SAT 98; BMI 28.9
--- NOTE | 2024-08-22 14:19 | HO.NEPHOV_ITS ---
Vital Signs 08/22/24 14:19 Height 5 ft 11 in Weight 207 lb BMI 28.9 BP 118/78 Blood Pressure Location Lt brachial Position Sitting Pulse 99 Pulse Source Pulse Oximeter Pulse Oximetry (%) 98 Oxygen Delivery Method Room Air Intake Visit Reasons: CKD/ Conf Commander Internal Affairs Required: No Accompanied by: Self / Same As Patient Allergies No Known Allergies Allergy (Verified 08/22/24 14:21) Medication List - Last Reconciled 08/22/24 by Steve Kohler MD aspirin 1 tab PO DAILY atorvastatin 10 mg PO DAILY cyanocobalamin (vitamin B-12) 1 tab PO DAILY dapagliflozin propanediol (Farxiga) 5 mg PO DAILY [Fish Oil ] gabapentin 300 mg PO DAILY PRN lisinopril 5 mg PO DAILY metformin ER 1,000 mg PO BID sitagliptin phosphate (Januvia) 50 mg PO DAILY [Vitamin D3 ] HPI Comments Details: 60 year old man with history of diabetes mellitus and hypertension for more than 15 years. He was found to have serum creatinine of 1.7 with EGFR of 13 mL/minute he has been a for further evaluation. 03/10/24; Doing well.No new issues 08/22/24 Recently went to [place] and ate calorie rich food Blood sugar elevated [facility] Medical History Spasms of the hands or feet Claw hand Arthralgia of hands, bilateral Bilateral hand numbness Erosive (osteo)arthritis FHx: Alzheimer's disease Memory impairment Left foot pain Bilateral knee pain Transaminitis Type 2 diabetes mellitus Apical variant hypertrophic cardiomyopathy Hyperlipidemia Diabetes HTN (hypertension) Back pain Family History Other Alzheimer disease Social History Patient Tobacco Use Status: Never used Tobacco Physical Exam Vital Signs: Last Vital Signs Pulse 99 08/22/24 14:19 BP 118/78 08/22/24 14:19 Pulse Ox 98 08/22/24 14:19 Oxygen Delivery Method Room Air 08/22/24 14:19 BMI result Body Mass Index 28.9 Const General: comfortable; No acute distress Orientation/consciousness: patient oriented x3 Eyes General: appearance normal, both eyes and all related structures Visual Carrillo: normal visual carrillo by confrontation Neck Neck: Yes supple and Yes no JVD Resp Effort & Inspection: normal respiratory effort and respiratory effort not decreased Cardio Palpation: no palpable S3 and no palpable S4 Heart sounds: no rubs GI Inspection: Yes normal to inspection Palpation (GI): Soft to palpation Percussion: Yes normal to percussion Auscultation: normal bowel sounds General: Yes no CVA tenderness Back/Spine/Pelvis Back: no CVA tenderness Skin General skin exam: no petechiae and no purpura Neuro General: patient oriented x3 and no focal motor deficits Extrem General: No clubbing and No edema Results Reviewed Nephrology Results: Hgb 14.2 g/dl (14.0-18.0) 07/16/23 WBC 10.7 X10*3/uL (4.8-10.8) 07/16/23 Plt Count 205 X10*3/uL (160-400) 07/16/23 Sodium 138 mmol/L (135-145) 08/19/24 Potassium 4.4 mmol/L (3.3-5.1) 08/19/24 Chloride 105 mmol/L (96-108) 08/19/24 Carbon Dioxide 25 mmol/L (22-29) 08/19/24 BUN 25 mg/dL (9-16) H 08/19/24 Creatinine 1.70 mg/dL (0.5-1.4) H 08/19/24 Calcium 9.9 mg/dL (8.4-10.2) 08/19/24 Urine Protein 30 (1+) mg/dL (Neg-Trace) H 03/09/24 Urine Creatinine 231.32 mg/dL 03/09/24 Assessment & Plan Assessment & Plan (1) CKD (chronic kidney disease): Code(s): N18.9 - Chronic kidney disease, unspecified Category: Medical Plan: CKD stage 3. Serum creatinine down to 1.4 from 1.7. After lowering lisinopril Cr back up to 1.7 now He has no significant hematuria or proteinuria. He would benefit from SGLT-2 inhibitors (2) Apical variant hypertrophic cardiomyopathy: Code(s): I42.2 - Other hypertrophic cardiomyopathy Category: Medical Plan: Currently asymptomatic. Follows with cardiology (3) Diabetes: Code(s): E11.9 - Type 2 diabetes mellitus without complications Category: Medical Plan: Goal A1c less than 7%. Discussed importance of tight control blood sugar. (4) HTN (hypertension): Code(s): I10 - Essential (primary) hypertension Category: Medical Plan: History of hypertension blood pressure well controlled No changes today. Orders: Orders Comprehensive Met. Panel 6 Months N18.9 - Chronic kidney disease, unspecified Complete Blood Count no Diff 6 Months N18.9 - Chronic kidney disease, unspecified Coding Level of Care Code Est Pt Level 4 (96249) Diagnoses CKD (chronic kidney disease) N18.9 Apical variant hypertrophic cardiomyopathy I42.2 Diabetes E11.9 HTN (hypertension) I10
== END 2024-08-22 14:29 | disposition home or self-care (01) ==
LOC: HO.HKA 14:17
PROVIDERS: PCP Family Medicine; Visit Provider Internal Medicine Hypertension Specialist
DX: I12.9 Hypertensive chronic kidney disease with stage 1 through stage 4 chronic kidney disease, or unspecified chronic kidney disease (principal); N18.9 Chronic kidney disease, unspecified; I42.2 Other hypertrophic cardiomyopathy; E11.9 Type 2 diabetes mellitus without complications
CPT/HCPCS: 99214

== ENCOUNTER → 2024-08-22 14:16 | Outpatient (BNVA) | payer MEDICARE, SELFPAY | PROVIDERS: PCP Family Medicine; Visit Provider Internal Medicine Hypertension Specialist | DX: E11.22 Type 2 diabetes mellitus with diabetic chronic kidney disease (principal); I12.9 Hypertensive chronic kidney disease with stage 1 through stage 4 chronic kidney disease, or unspecified chronic kidney disease; I42.2 Other hypertrophic cardiomyopathy; N18.30 Chronic kidney disease, stage 3 unspecified | CPT/HCPCS: 99212 ==

== ENCOUNTER 2024-11-21 16:34 | Emergency (ER) | payer MEDICARE, SELFPAY ==
--- NOTE | ~2024-11-21 | XR_ITS ---
CLINICAL HISTORY: pain 4 view left hand Comparison: None provided Findings: No acute fracture. No dislocation. Mild degenerative changes of interphalangeal joints and at radiocarpal joint. No erosions. The tuft of 2nd distal phalanx is absent likely due to previous trauma. No radiopaque foreign body. IMPRESSION: 1. No acute findings. 2. Nonacute findings as described. This document has been electronically signed by: Ewa Ruiz MD on 11/21/2024 17:23:07
[2024-11-21 16:49] VITALS: BP 96/66; PULSE 83; RESP 18; TEMP 35.9; O2SAT 97; BMI 26.6
--- NOTE | 2024-11-21 16:50 | ED.UPPEXIN ---
HPI - Extremity Injury (Upper) General Chief Complaint: Extremity Injury, Upper Stated Complaint: Left hand bruising thumb and palm Time Seen by Provider: 11/21/24 22:40 Source: patient, RN notes reviewed and old records reviewed Mode of arrival: ambulatory Limitations: no limitations History of Present Illness ED Provider: Robert HPI narrative: 69-year-old male presents for evaluation of left thumb pain. Patient reports he tried to help push himself up off his bed 2 days ago. His left thumb bent backwards he has some bruising to the left thumb and mild pain Related Data Home Medications ?Medication ?Instructions ?Recorded ?Confirmed metformin 500 mg tablet,extended 1,000 mg PO BID 04/10/22 08/22/24 release 24 hr Fish Oil 05/12/22 08/22/24 Vitamin D3 05/12/22 08/22/24 cyanocobalamin (vitamin B-12) 1 tab PO DAILY 05/12/22 08/22/24 1,000 mcg tablet aspirin 81 mg chewable tablet 1 tab PO DAILY 04/16/23 08/22/24 atorvastatin 10 mg tablet 10 mg PO DAILY 03/10/24 08/22/24 gabapentin 300 mg capsule 300 mg PO DAILY PRN 03/10/24 08/22/24 lisinopril 5 mg tablet 5 mg PO DAILY 03/10/24 08/22/24 sitagliptin phosphate 50 mg tablet 50 mg PO DAILY 03/10/24 08/22/24 (Januvia) dapagliflozin propanediol 5 mg 5 mg PO DAILY 08/22/24 08/22/24 tablet (Farxiga) Allergies Allergy/AdvReac Type Severity Reaction Status Date / Time Pork/Porcine Containing AdvReac Rash Verified 11/21/24 16:52 Products Review of Systems Musculoskeletal: Musculoskeletal: Reports arthralgias, Reports joint swelling and Reports limited range of motion Integumentary/Breasts: Skin/Breast: Reports unusual bruising PMFSH Past Medical History Medical History Spasms of the hands or feet Claw hand Arthralgia of hands, bilateral Bilateral hand numbness Erosive (osteo)arthritis FHx: Alzheimer's disease Memory impairment Left foot pain Bilateral knee pain Transaminitis Type 2 diabetes mellitus Apical variant hypertrophic cardiomyopathy Hyperlipidemia Diabetes HTN (hypertension) Back pain Family History Family History Other Alzheimer disease Social History Social History Patient Tobacco Use Status: Never used Tobacco Smoked in Last 30 Days: No Use of substances other than those prescribed or required for medical reasons: No Advance Directives: No Advance Directives Information Provided: Yes Physical Exam Vital Signs: Vital Signs: Last Vital Signs Temp 97.7 F 11/21/24 23:19 Pulse 69 11/21/24 23:19 Resp 16 11/21/24 23:19 BP 107/77 11/21/24 23:19 Pulse Ox 98 11/21/24 23:19 O2 Del Method Room Air 11/21/24 23:19 BMI result Body Mass Index 26.6 Const: General: healthy appearing, comfortable, no acute distress, alert and awake Nutritional Appearance: well nourished Orientation/consciousness: patient oriented x3 HEENT: Head: Yes normocephalic and Yes atraumatic Throat: Yes posterior oropharynx normal Eyes: Eyelids: Yes eyelids normal Conjunctivae: conjunctivae normal Sclerae: sclerae normal Corneas: corneas normal Pupils: Equal, round and reactive pupils present EOM: EOMs intact bilaterally Neck: Neck: Yes full ROM Resp: Effort & Inspection: normal respiratory effort, able to speak in complete sentences and not labored Skin: General skin exam: elasticity normal Neuro: General: patient oriented x3 Cranial nerves: Yes Equal, round and reactive pupils present and Yes Bilaterally intact EOM present Cognition (Neuro): normal cognition Extrem: Other: there is mild ecchymosis on the palmar surface of the left thumb including the thenar aspect. There is no visual or palpable deformity. The patient has full range of motion with flexion at the interphalangeal joint and opposition of the thumb. There was no scaphoid tenderness or wrist tenderness. Course Course Course Narrative: This is an RME: Additional HPI, ROS, PE not included below will be deferred to primary provider. RME assessment and note performed by: Josee Connor PA-C This is a [id number] who presents to the ER with complaints of left thumb bruising and pain. was climbing on his bed and his left thumb bent backwards. TTP overlying the left thumb. Plan: Xrays, further ER eval needed Medical Decision Making Medical Decision Making MDM Narrative: 69-year-old male presents for evaluation of left thumb pain after he accidentally bent it backward trying to stand up. X-rays negative for fracture. His pain is most likely related to a sprain. I offered velcro splint for comfort and the patient declined. Plan to treat with symptomatic care only Differential Diagnosis Differential Diagnoses: The differential diagnosis associated with the presentation includes thumb sprain Fracture Dislocation Contusion Radiology Impression Discussion of test interpretation with radiology: I have reviewed the radiologist's reading. Radiologist Impression: Findings: No acute fracture. No dislocation. Mild degenerative changes of interphalangeal joints and at radiocarpal joint. No erosions. The tuft of 2nd distal phalanx is absent likely due to previous trauma. No radiopaque foreign body. IMPRESSION: 1. No acute findings. 2. Nonacute findings as described. This document has been electronically signed by: Ewa Ruiz MD on 11/21/2024 17:23:07 Discharge Plan Discharge Clinical Impression: Left thumb sprain Patient Disposition: Home, Self-Care Instructions: Finger Sprain (ED) Additional Instructions: your x-ray was negative for fracture. You have a sprain of your thumb. You may use ibuprofen / Tylenol for pain. I recommend ice every 4 hours for 10-15 minutes follow-up with your primary doctor, return for new or worsening symptoms Prescriptions: No Action cyanocobalamin (vitamin B-12) 1,000 mcg tablet 1 tab PO DAILY Fish Oil Vitamin D3 aspirin 81 mg tablet,chewable 1 tab PO DAILY metformin 500 mg tablet extended release 24 hr 1,000 mg PO BID atorvastatin 10 mg tablet 10 mg PO DAILY lisinopril 5 mg tablet 5 mg PO DAILY gabapentin 300 mg capsule 300 mg PO DAILY PRN Januvia 50 mg tablet 50 mg PO DAILY dapagliflozin propanediol [Farxiga] 5 mg tablet 5 mg PO DAILY Interventions: ED Discharge Assessment Last Done: 11/21/24 23:19 Discharge Date/Time: 11/21/24 23:23 Print Language: Amharic
--- OUTSIDE RECORDS SUMMARY | 2024-11-21 22:46 | XMS_ITS | Clinical Summary ---
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 90 tablet 3 3 Active omega-3 (Fish Oil) 500 MG capsule Take 500 mg by mouth in the morning. Purchases OTC Active cholecalciferol (Vitamin D-3) 10 MCG (400 UNIT) capsule Take 1 capsule by mouth in the morning. Purchases OTC Active metFORMIN XR (Glucophage-XR) 500 MG 24 hr tablet TAKE 1 TABLETS BY MOUTH TWICE DAILY WITH THE EVENING MEAL 180 tablet 3 3 Active glucose blood (FREESTYLE LITE) test strip insert 1 by into machine route every day 100 each 4 Active cyanocobalamin (Vitamin B-12) 1000 MCG tablet Take 1 tablet (1,000 mcg) by mouth Once per day. 90 tablet 3 4 Active gabapentin (Neurontin) 300 MG capsule Take 1 capsule (300 mg) by mouth at bedtime. 90 capsule 3 4 02/02/20 25 Active lisinopril 5 MG tablet Take 1 tablet (5 mg) by mouth Once per day. 90 tablet 3 4 Active Blood Glucose Monitoring Suppl (OneTouch Verio) w/Device kit Use to check blood sugar once daily 1 kit 4 Active OneTouch Verio test strip Use to check blood sugar once daily 100 each 3 4 Active OneTouch Delica Lancets 33G misc Use to check blood sugar once daily 100 each 3 4 Active atorvastatin (Lipitor) 10 MG tablet TAKE 1 TABLET BY MOUTH EVERY DAY AT BEDTIME 90 tablet 1 5 Active dapagliflozin (Farxiga) 10 MG Take 1 tablet (10 mg) by mouth Once per day. 90 tablet 3 5 Active SITagliptin (Januvia) 50 MG tabletIndicatio ns:Type 2 diabetes mellitus with hyperglycemia, without long-term current use of insulin ([facility]) TAKE 1 TABLET BY MOUTH ONCE DAILY 90 tablet 5 Active Active Problems Problem Noted Date Diagnosed Date Trigger finger 11/17/2024 Assessment & Plan (11/17/2024 6:00 AM EDT): - 3rd and 4th - bilateral, right hand more prominent and right-handed - discussed about OT; patient prefers to search internet and find appropriate home therapy. We discussed about trustworthy sites. - will write a script for finger splints / braces. Stiffness of left hand joint 11/01/2024 Assessment & Plan (11/01/2024 4:59 PM EDT): - Likely due to Osteoarthritis and possible trigger finger - Pt Declines steroid injection or OT/PT referral - Pt is interest in getting a brace for his hand. Will check it's availability Dyslipidemia 02/02/2024 Assessment & Plan (11/01/2024 1:36 PM EDT): Last lipid profile in Mar 2024 Current medication: atorvastatin 10 mg at bedtime, consider increasing its dose Previous medication history: pravastatin which was switched due to elevated LDL Continue working on lifestyle modifications Assessment & Plan (08/12/2024 6:21 PM EDT): Last lipid profile in Mar 2024 Current medication: atorvastatin 10 mg at bedtime, consider increasing its dose Previous medication history: pravastatin which was switched due to elevated LDL Continue working on lifestyle modifications Assessment & Plan (02/02/2024 5:56 AM EDT): Last lipid profile in Apr 2023 Current medication: atorvastatin 10 mg at bedtime Previous medication history: pravastatin which was switched due to elevated LDL Continue working on lifestyle modifications Carpal tunnel syndrome, bilateral 07/26/2023 Assessment & Plan (02/02/2024 4:03 PM EDT): - NCT/EMG on 07/02/23 which showed b/l median nerve neuropathy - activity modification - will write script for wrist brace - NSAIDs are contraindicated due to CKD - will try gabapentin at low dose Assessment & Plan (10/25/2023 7:21 AM EDT): - NCT/EMG on 07/02/23 which showed b/l median nerve neuropathy - activity modification - will write script for wrist brace - NSAIDs are contraindicated due to CKD Assessment & Plan (07/26/2023 3:12 PM EST): - NCT/EMG on 07/02/23 which showed b/l median nerve neuropathy - activity modification - will write script for wrist brace - NSAIDs are contraindicated due to CKD GERD (gastroesophageal reflux disease) Assessment & Plan (07/26/2023 3:18 PM EST): - patient reports resolution of symptom with omeprazole - continue omeprazole (patient states he has OTC medication) - consider H. Pylori test if symptom recurs. Stage 3 chronic kidney disease 07/21/2023 Assessment & Plan (11/01/2024 1:37 PM EDT): - following with Dr. Kohler, at [facility]. Last seen on 03/10/24 - Lisinopril dose was decreased to 5 mg daily in Apr 2023 - Will start SGLT2i - Avoid nephrotoxic drugs - Renal dose medications - Prevent renal hypoperfusion Assessment & Plan (08/12/2024 6:13 PM EDT): - following with Dr. Kohler, at [facility]. Last seen on 03/10/24 - Lisinopril dose was decreased to 5 mg daily in Apr 2023 - Will start SGLT2i - Avoid nephrotoxic drugs - Renal dose medications - Prevent renal hypoperfusion Assessment & Plan (02/02/2024 3:47 PM EDT): - following with Dr. Kohler, at [facility]. Last seen on 09/15/23 - Lisinopril dose was decreased to 5 mg daily in Apr 2023 - Avoid nephrotoxic drugs - Renal dose medications - Prevent renal hypoperfusion Assessment & Plan (10/19/2023 2:21 PM EDT): - following with Dr. Kohler, at [facility]. Last seen on 09/15/23 - Lisinopril dose was decreased to 5 mg daily in Apr 2023 - Avoid nephrotoxic drugs - Renal dose medications - Prevent renal hypoperfusion Assessment & Plan (07/21/2023 5:56 AM EST): - following with Dr. Kohler, at [facility]. Last seen on 06/16/23 - Lisinopril dose was decreased to 5 mg daily in Apr 2023 - Avoid nephrotoxic drugs - Renal dose medications - Prevent renal hypoperfusion Overweight 01/18/2023 Assessment & Plan (01/18/2023 6:27 AM EDT): - lifestyle modification Memory impairment 10/06/2022 Assessment & Plan (11/01/2024 1:37 PM EDT): -patient had family history of Alzheimer's disease -patient reports only short term memory, his family member is concerned as well -seen by neurologist, Dr. Varner on 04/06/24 -evaluated with MRI and lab -recommended to call the office for follow up appointment. Assessment & Plan (08/12/2024 6:21 PM EDT): -patient had family history of Alzheimer's disease -patient reports only short term memory, his family member is concerned as well -seen by neurologist, Dr. Varner on 04/06/24 -evaluated with MRI and lab -recommended to call the office for follow up appointment. Assessment & Plan (02/02/2024 4:05 PM EDT): -patient had family history of Alzheimer's disease -patient reports only short term memory, his family member is concerned as well -previously he was in denial but now accepts the referral, will refer him to neurology Assessment & Plan (01/18/2023 6:26 AM EDT): -Patient states his memory is improving -Patient declines any other evaluations or tests to be conducted, except for Vitamin B12 check Assessment & Plan (10/09/2022 5:09 PM EDT): Patient states his memory is improving -Patient declines any other evaluations or tests to be conducted, except for Vitamin B12 check Diabetes mellitus, type 2 06/09/2022 Assessment & Plan (11/01/2024 4:55 PM EDT): - A1C 7.1% on 11/01/24, improved from 7.9 % on 08/08/24 -Continue working on lifestyle modifications -Continue Januvia 50 mg daily -Continue Metformin 500 mg BID -Continue dapagliflozin (Farxiga) 5 mg daily, will increase dose as tolerated -consider GLP-agonist -Treatment Hx: Due to declining renal function, metformin was decreased from 1000 mg bid to 500 mg bid in Apr 2023, and Januvia was decreased from 100 to 50 mg daily in May 2023. Discontinued glipizide in July. -Comprehensive eye exam: May 2025 at [facility]. No diabetic retinopathy, Dx with Glaucoma and cataract. -Comprehensive foot exam: September 2023 -Lipid profile: 2023 Triglyceride 108; Total cholesterol 146; LDL 82; HDL 43 -Microalbumin: 2023 UACR 92.5 -Immunizations up to date -follow-up in 3 months Assessment & Plan (08/12/2024 6:18 PM EDT): - A1C 7.9 % on 08/08/24, unchanged from A1C 8.0% on 02/02/24 -Continue working on lifestyle modifications -Continue Januvia 50 mg daily -Discontinue glipizide -Continue Metformin 500 mg BID -Start dapagliflozin (Farxiga) 5 mg daily, will increase dose as tolerated -consider GLP-agonist -Treatment Hx: Due to declining renal function, metformin was decreased from 1000 mg bid to 500 mg bid in Apr 2023, and Januvia was decreased from 100 to 50 mg daily in May 2023. -Comprehensive eye exam: May 2025 at [facility]. No diabetic retinopathy, Dx with Glaucoma and cataract. -Comprehensive foot exam: September 2023 -Lipid profile: 03/09/24 Triglyceride 108; Total cholesterol 146; LDL 82; HDL 43 -Microalbumin: UACR 92.5 -Immunizations up to date -follow-up in 3 months Assessment & Plan (02/02/2024 3:48 PM EDT): -HgbA1C 8.0% on 02/02/24 -Continue working on lifestyle modifications -Continue Januvia 50 mg daily, glipizide 5 mg daily -Continue Metformin 500 mg BID -monitor renal function because of borderline renal fucntion (CKD IIIa - II) -consider changing metformin and starting SGLT-2 inhibitor or GLP-agonist -Treatment Hx: Due to declining renal function, metformin was decreased from 1000 mg bid to 500 mg bid in Apr 2023, and Januvia was decreased from 100 to 50 mg daily in May 2023. -Comprehensive eye exam: 01/02/22; No DR, Dx with Glaucoma and cataract. -Comprehensive foot exam: 01/12/23 -Lipid profile: 04/16/23 Triglyceride 95; Total cholesterol 185; LDL 121; HDL 45 -Microalbumin: 04/16/23 UACR 25.5 -Immunizations up to date -follow-up in 3 months Assessment & Plan (10/19/2023 2:21 PM EDT): -HgbA1C 7.3% on 10/19/23 , up from 6.9% on 07/21/22. -Continue working on lifestyle modifications -Continue Januvia 50 mg daily, glipizide 5 mg daily -Continue Metformin 500 mg BID -monitor renal function because of borderline renal fucntion (CKD IIIa - II) -consider changing metformin and starting SGLT-2 inhibitor or GLP-agonist -Treatment Hx: Due to declining renal function, metformin was decreased from 1000 mg bid to 500 mg bid in Apr 2023, and Januvia was decreased from 100 to 50 mg daily in May 2023. -Comprehensive eye exam: 01/02/22; No DR, Dx with Glaucoma and cataract. -Comprehensive foot exam: 01/12/23 -Lipid profile: 04/16/23 Triglyceride 95; Total cholesterol 185; LDL 121; HDL 45 -Microalbumin: 04/16/23 UACR 25.5 -Immunizations up to date -follow-up in 3 months Assessment & Plan (07/26/2023 3:13 PM EST): -HgbA1C 6.8% on 07/21/22, stable from 6.9% on 01/18/23 -Continue working on lifestyle modifications -Continue Januvia 50 mg daily, glipizide 2.5 mg daily -monitor renal function because of borderline renal fucntion (CKD IIIa - II) -consider changing metformin and starting SGLT-2 inhibitor or GLP-agonist -Treatment Hx: Due to declining renal function, metformin was decreased from 1000 mg bid to 500 mg bid in Apr 2023, and Januvia was decreased from 100 to 50 mg daily in May 2023. -Comprehensive eye exam: 01/02/22; No DR, Dx with Glaucoma and cataract. -Comprehensive foot exam: 01/12/23 -Lipid profile: 04/16/23 Triglyceride 95; Total cholesterol 185; LDL 121; HDL 45 -Microalbumin: 04/16/23 UACR 25.5 -Immunizations up to date -follow-up in 3 months Assessment & Plan (04/24/2023 12:08 PM EST): -HgbA1C 6.9% on 01/18/23 -Continue working on lifestyle modifications -Continue Metformin 1000 mg BID, Januvia 100 mg daily, glipizide 2.5 mg daily -monitor renal function because of borderline renal fucntion (CKD IIIa - II) -consider changing metformin and starting SGLT-2 inhibitor or GLP-agonist -Pt is hesitant to start new medication, states he will work on lifestyle modifications. -Comprehensive eye exam: 01/02/22; No DR, Dx with Glaucoma and cataract. -Comprehensive foot exam: 01/12/23 -Lipid profile: 03/04/22 TC 173; TG 252; HDL 45; LDL 94 -Microalbumin: 03/04/22 UACR 103 -Immunizations up to date -follow-up in 3 months Assessment & Plan (01/18/2023 6:25 AM EDT): -HgbA1C 6.9% today, improved from 8.0% on 10/06/22 -Continue working on lifestyle modifications -Continue Metformin 1000 mg BID, Januvia 100 mg daily, glipizide 2.5 mg daily -monitor renal function because of borderline renal fucntion (CKD IIIa - II) -consider changing metformin and starting SGLT-2 inhibitor or GLP-agonist -Pt is hesitant to start new medication, states he will work on lifestyle modifications. -Comprehensive eye exam: 01/02/22; No DR, Dx with Glaucoma and cataract. -Comprehensive foot exam: 01/12/23 -Lipid profile: 03/04/22 TC 173; TG 252; HDL 45; LDL 94 -Microalbumin: 03/04/22 UACR 103 -Immunizations up to date -follow-up in 3 months Assessment & Plan (10/09/2022 5:08 PM EDT): -HgbA1C 8.0% on 10/06/22, slight improvement from 8.3% on 06/17/22 -Continue working on lifestyle modifications -Continue Metformin 1000 mg BID, Januvia 100 mg daily, glipizide 2.5 mg daily -monitor renal function because of borderline renal fucntion (CKD IIIa - II) -consider changing metformin and starting SGLT-2 inhibitor or GLP-agonist -Pt is hesitant to start new medication, states he will work on lifestyle modifications. -Comprehensive eye exam: 01/02/22; No DR, Dx with Glaucoma and cataract. -Comprehensive foot exam: 12/23/21 -Lipid profile: 03/04/22 TC 173; TG 252; HDL 45; LDL 94 -Microalbumin: 03/04/22 UACR 103 -Immunizations up to date -follow-up in 3 months Assessment & Plan (06/13/2022 7:54 AM EST): -HgbA1C 8%, worsened again from, 7.4% on03/04/22 -Continue working on lifestyle modifications -Continue Metformin 1000 mg BID, Januvia 100 mg daily, glipizide 2.5 mg daily -monitor renal function because of borderline renal fucntion (CKD IIIa - II) -consider changing metformin and starting SGLT-2 inhibitor or GLP-agonist -Pt is hesitant to start new medication, states he will work on lifestyle modifications. -Comprehensive eye exam: 01/02/22; No DR, Dx with Glaucoma and cataract. -Comprehensive foot exam: 12/23/21 -Lipid profile: 03/04/22 TC 173; TG 252; HDL 45; LDL 94 -Microalbumin: 03/04/22 UACR 103 -Immunizations up to date -follow-up in 3 months Hypertension 06/09/2022 Assessment & Plan (11/01/2024 1:36 PM EDT): -Goal BP < 140/90 per JNC-8 and < 130/80 per ACC/AHA guideline, < 130/[address] Gordon -BP at goal today -Continue working on lifestyle modifications. -Check BP at home regularly -Continue lisinopril 5 mg daily. -Lisinopril was decreased by cushion stuffer due to prerenal component in CKD -Discontinued amlodipine since pt has not been adherent and BP is still at his goal Assessment & Plan (08/12/2024 6:08 PM EDT): -Goal BP < 140/90 per JNC-8 and < 130/80 per ACC/AHA guideline, < 130/[address] Gordon -BP at goal today -Continue working on lifestyle modifications. -Check BP at home regularly -Continue lisinopril 5 mg daily. -Lisinopril was decreased by cushion stuffer due to prerenal component in CKD -Discontinued amlodipine since pt has not been adherent and BP is still at his goal Assessment & Plan (02/02/2024 3:46 PM EDT): -Goal BP < 140/90 per JNC-8 and < 130/80 per ACC/AHA guideline, < 130/[address] Gordon -BP at goal today -Continue working on lifestyle modifications. -Check BP at home regularly -Continue lisinopril 5 mg daily. -Lisinopril was decreased by cushion stuffer due to prerenal component in CKD -Discontinued amlodipine since pt has not been adherent and BP is still at his goal -Follow up in 3 months or sooner if any problem arises Assessment & Plan (10/19/2023 1:57 PM EDT): -Goal BP < 140/90 per JNC-8 and < 130/80 per ACC/AHA guideline, < 130/[address] Gordon -Continue working on lifestyle modifications. -Check BP at home regularly -Continue lisinopril 5 mg daily. -Lisinopril was decreased by cushion stuffer due to prerenal component in CKD -Discontinued amlodipine since pt has not been adherent and BP is still at his goal -Follow up in 3 months or sooner if any problem arises Assessment & Plan (07/26/2023 3:08 PM EST): -Goal BP < 140/90 per JNC-8 and < 130/80 per ACC/AHA guideline, < 130/[address] Gordon -Continue working on lifestyle modifications. -Check BP at home regularly -Continue lisinopril 5 mg daily. -Lisinopril was decreased by cushion stuffer due to prerenal component in CKD -Discontinued amlodipine since pt has not been adherent and BP is still at his goal -Follow up in 3-6 mo or sooner if any problem arises Assessment & Plan (04/24/2023 12:05 PM EST): -Goal BP < 140/90 per JNC-8 and < 130/80 per ACC/AHA guideline, < 130/[address] Gordon -Continue working on lifestyle modifications. -Check BP at home regularly -Continue lisinopril 10 mg daily. -Discontinue amlodipine since pt has not been adherent and BP is still at his goal -Follow up in 3-6 mo or sooner if any problem arises Assessment & Plan (01/18/2023 6:21 AM EDT): -Goal BP < 140/90 per JNC-8 and < 130/80 per ACC/AHA guideline, < 130/[address] Gordon -Continue working on lifestyle modifications. -Check BP at home regularly -Continue amlodipine 5 mg daily . -Continue lisinopril 10 mg daily. -Follow up in 3-6 mo or sooner if any problem arises Assessment & Plan (10/06/2022 1:20 PM EDT): -Goal BP < 140/90 per JNC-8 and < 130/80 per ACC/AHA guideline, < 130/[address] Gordon -Continue working on lifestyle modifications. -Check BP at home regularly -Continue amlodipine 5 mg daily . -Continue lisinopril 10 mg daily. -Follow up in 6 mo or sooner if any problem arises Assessment & Plan (06/09/2022 5:32 AM EST): -Goal BP < 140/90 per JNC-8 and < 130/80 per ACC/AHA guideline, < 130/[address] Gordon -Continue working on lifestyle modifications. -Check BP at home regularly -Continue amlodipine 5 mg daily . -Continue lisinopril 10 mg daily. -Follow up in 6 mo or sooner if any problem arises Microalbuminuria due to type 2 diabetes mellitus ([facility]) 06/09/2022 Assessment & Plan (11/03/2024 11:23 PM EDT): -Microalbumin: 2023 UACR 92.5 -Continue ACEI -Add SGLT2i Assessment & Plan (08/12/2024 6:14 PM EDT): -03/04/22 UACR 100 -Continue ACEI -Add SGLT2i Assessment & Plan (04/24/2023 12:07 PM EST): -03/04/22 UACR 100 -Continue ACEI Assessment & Plan (01/18/2023 6:24 AM EDT): -03/04/22 UACR 100 -Continue ARB Assessment & Plan (10/06/2022 1:20 PM EDT): -03/04/22 UACR 100 -Will confirm with second test Assessment & Plan (06/09/2022 5:33 AM EST): -03/04/22 UACR 100 -Will confirm with second test Apical variant hypertrophic cardiomyopathy 06/09 Assessment & Plan (08/12/2024 6:13 PM EDT): -Phlebotomist PrnDr. Gordon [facility], last seen in Apr 2023 -Echocardiogram on 05/14/22 -- The left ventricular systolic function is hyperdynamic. The visually estimated ejection fraction is >70%. 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 -- No obvious valvular pathology seen on this study Continue annual follow up as recommended Assessment & Plan (07/26/2023 3:06 PM EST): -Phlebotomist PrnDr. Gordon [facility], last seen in Apr 2023 -Echocardiogram on 05/14/22 -- The left ventricular systolic function is hyperdynamic. The visually estimated ejection fraction is >70%. 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 -- No obvious valvular pathology seen on this study Continue annual follow up as recommended Assessment & Plan (01/18/2023 6:22 AM EDT): -Phlebotomist PrnDr. Gordon [facility], last seen in Apr 2022 -Echocardiogram on 05/14/22 -- The left ventricular systolic function is hyperdynamic. The visually estimated ejection fraction is >70%. 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 -- No obvious valvular pathology seen on this study Continue annual follow up as recommended Assessment & Plan (06/09/2022 5:36 AM EST): -Phlebotomist PrnDr. Gordon [facility], last seen in Apr 2022 -Echocardiogram on 05/14/22 -- The left ventricular systolic function is hyperdynamic. The visually estimated ejection fraction is >70%. 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 -- No obvious valvular pathology seen on this study Continue annual follow up as recommended Erosive (osteo)arthritis 06/09/2022 Assessment & Plan (11/01/2024 4:56 PM EDT): -seen on hand X-ray -ERICH negative; RF negative -evaluated by rheumatology provider -we have been treating as OA -continue APAP prn -Pt declines steroid injection Assessment & Plan (10/25/2023 7:20 AM EDT): -seen on hand X-ray -ERICH negative; RF negative -evaluated by rheumatology provider -we have been treating as OA -continue APAP prn Assessment & Plan (07/26/2023 3:09 PM EST): -seen on hand X-ray -ERICH negative; RF negative -evaluated by rheumatology provider -we have been treating as OA -continue APAP prn Assessment & Plan (04/24/2023 12:06 PM EST): -seen on hand X-ray -ERICH negative; RF negative -we have been treating as OA -continue APAP prn -Pt previously declined a referral to [facility], but agrees today Assessment & Plan (01/18/2023 6:22 AM EDT): -seen on hand X-ray -ERICH negative; RF negative -treat as OA -continue APAP prn -Pt declines referral to [facility] at this time. Assessment & Plan (06/09/2022 5:37 AM EST): -seen on hand X-ray -ERICH negative; RF negative -treat as OA -continue APAP prn -Pt declines referral to [facility] at this time. Metabolic dysfunction-associ ated steatotic liver disease ([facility]) 06/09/2022 Assessment & Plan (11/01/2024 1:37 PM EDT): -03/04/22 ALT 50, AST 27; AlkPhos 50 -On pravastatin 20 mg -Last US in October 2022: generalized increase in hepatic echotexture, consistent with fatty infiltration or hepatocellular disease. No focal hepatic mass or intrahepatic biliary dilatation is seen; There is borderline splenomegaly; Two benign, simple left renal cysts are seen, for which no imaging follow-up is recommended. -Continue periodic lab and US -Continue working on lifestyle modifications Assessment & Plan (08/12/2024 6:10 PM EDT): -03/04/22 ALT 50, AST 27; AlkPhos 50 -On pravastatin 20 mg -Last US in October 2022: generalized increase in hepatic echotexture, consistent with fatty infiltration or hepatocellular disease. No focal hepatic mass or intrahepatic biliary dilatation is seen; There is borderline splenomegaly; Two benign, simple left renal cysts are seen, for which no imaging follow-up is recommended. -Continue periodic lab and US -Continue working on lifestyle modifications Assessment & Plan (02/02/2024 3:46 PM EDT): -03/04/22 ALT 50, AST 27; AlkPhos 50 -On pravastatin 20 mg -Last US in October 2022: generalized increase in hepatic echotexture, consistent with fatty infiltration or hepatocellular disease. No focal hepatic mass or intrahepatic biliary dilatation is seen; There is borderline splenomegaly; Two benign, simple left renal cysts are seen, for which no imaging follow-up is recommended. -Continue periodic lab and US Assessment & Plan (04/24/2023 12:11 PM EST): -03/04/22 ALT 50, AST 27; AlkPhos 50 -On pravastatin 20 mg -Last US in October 2022: generalized increase in hepatic echotexture, consistent with fatty infiltration or hepatocellular disease. No focal hepatic mass or intrahepatic biliary dilatation is seen; There is borderline splenomegaly; Two benign, simple left renal cysts are seen, for which no imaging follow-up is recommended. -Continue periodic lab and US Assessment & Plan (01/18/2023 6:26 AM EDT): -03/04/22 ALT 50, AST 27; AlkPhos 50 -On pravastatin 20 mg Assessment & Plan (10/06/2022 1:20 PM EDT): -03/04/22 ALT 50, AST 27; AlkPhos 50 Assessment & Plan (06/09/2022 5:39 AM EST): -03/04/22 ALT 50, AST 27; [employer] 50 Resolved Problems Problem Noted Date Diagnosed Date Resolved Date Tingling of left upper extremity 10/06/2022 01/18/2023 Assessment & Plan (10/06/2022 1:42 PM EDT): Only on Left side No pain in chest or arm Unlikely due to Diabetes or Vitamin B12 deficiency Possibly a pinched nerve - recommended to monitor symptoms - advised to seek further medical attention if pain worsens or persists with sensation Encounters Date Type Department Care Team Description 11/18/[address] [phone] Effie Ridley MA DME/Finger splint 11/01/2024 3:15 PM EDT Office Visit [address] [phone] Missy Crawford MD Primary hypertension (Primary Dx); Dyslipidemia; Type 2 diabetes mellitus with stage 3b chronic kidney disease, without long-term current use of insulin (CMS/HCC); Microalbuminuria due to type 2 diabetes mellitus (CMS/HCC) (CMS/HCC); Stage 3b chronic kidney disease (CMS/HCC); Memory impairment; Metabolic dysfunction-associated steatotic liver disease (MASLD); Erosive (osteo)arthritis; Stiffness of left hand joint; Trigger middle finger of right hand; Trigger ring finger of right hand 11/01/2024 Travel 10/31/[address] [phone] Missy Crawford MD chart prep 09/29/2024 Refill [facility] [address] [place], [place] [phone] Missy Crawford MD Type 2 diabetes mellitus with hyperglycemia, without long-term current use of insulin ([facility]/HCC) 08/30/[address] [phone] Missy Crawford MD from Last 3 Months Immunizations Immunization Administration Dates Next Due Hep B, adult 07/16/2023,02/12/2023,01/12/2023 Influenza High-dose Quadriva lent Preservative Free 04/15/2023,03/13/2021 Influenza, High Dose Seasona l, Preservative Free 02/26/2024 Influenza, seasonal, injecta ble, preservative free 03/03/2012 Pfizer Covid-19 Vaccine 12+ 02/26/2024,0 07/16/2023,03/22/2021,2020,09/01/2020 Pfizer Covid-19 Vaccine 12+ Bivalent 06/11/2022 Pneumococcal Conjugate PCV 13 06/05/2021 Pneumococcal Conjugate PCV 20 04/15/2023 Tdap 06/05/2021 Family History Medical History Relation Name Comments Alzheimer's disease Father Dementia Mother Relation Name Status Comments Father Mother Social History Tobacco Use Types Packs/Day Years Used Date Smoking Tobacco: Never Passive Smoke Exposure: Never Smokeless Tobacco: Never Tobacco Cessation:Counseling Given: Not Answered Depression Answer Date Recorded Patient Health Questionnaire-9 Score 0 02/02/2024 Patient Health Questionnaire-9 Score 0 02/02/2024 Last PHQ-9: Questionnaire Data Not on file 0 02/02/2024 Housing Stability Answer Date Recorded What is your housing situation today? I have nathanieldean sosa 10/12/[address] you li ve. Do you have problems with any of the following? None of the above 10/12/2023 Food Insecurity Answer Date Recorded Within the past 12 months, y ou worried that your food would run out before you got money to buy more: Never True 10/12/2023 Within the past 12 months,th e food you bought just didn't last and you didn't have enough money to get more: Never True Transportation Answer Date Recorded In the past 12 months, has l ack of transportation kept you from medical appts, meetings, work or from getting things needed for daily living? No 10/12/2023 Utilities Answer Date Recorded In the past 12 months, has t he electric, gas, oil or water company threatened to shut off services in your home? No 10/12/2023 Depression Answer Date Recorded Patient Health Questionnaire-2 Score 0 02/02/2024 Sex and Gender Information Value Date Recorded Sex Assigned at Male 03/31/2022 10:18 AM EDT Legal Sex Male 10:18 AM EDT Gender Identity Male 03/31/2022 10:18 AM EDT Sexual Orientation Don't know 03/31/2022 10 :18 AM EDT Last Filed Vital Signs Vital Sign Reading Time Taken Comments Blood Pressure 104/80 11/01/2024 4:00 PM EDT Pulse 76 11/01/2024 4:00 PM EDT Temperature 36 C (96.8 F) 11/01/2024 4:00 PM EDT Respiratory Rate 15 11/01/2024 4:00 PM EDT Oxygen Saturation 99% 08/08/2024 11:27 AM EDT Inhaled Oxygen Concentration - - Weight 88.5 kg (195 lb) 11/01/2024 4:00 PM EDT Height 172.2 cm (5' 7.8 ) 08/08/2024 11:27 AM ED T Body Mass Index 29.82 08/08/2024 11:27 AM EDT Plan of Treatment Upcoming Encounters Date Type Department Care Team (Late st Contact Info) Description 05/01/2025 1:45 PM EST Office Visit [facility] [address] [place] [address] TarkaTorri, OD [address] [place] [address] Health Maintenance Due Date Last Done Comments CT Colonography 1955 FIT DNA/Cologuard 1955 FIT 1955 FOBT 1955 Sigmoidoscopy 1955 Hepatitis A Vaccines (1 of 2 - Risk 2-dose series) 1974 Zoster Vaccines (1 of 2) 2005 RSV Patients and Patients Aged 60 years or older (1 - Risk 60-74 years 1-dose series) 2015 COVID-19 Vaccine ( season) 2024 02/26/2024, 07/16/2023, 06/11/2022, Additional history exists SDOH Screening 10/11/2024 10/12/2023 Diabetes: Foot Exam 10/18/2024 10/19/2023 Depression Screening 02/01/2025 02/02/2024, 02/02/20 24 Diabetes: Hemoglobin A1C 02/01/2025 025, 08/08/2024, 02/02/2024, Additional history exists Lipid Panel 03/09/2025 03/09/2024, 04/01, 03/04/2022, Additional history exists Alcohol/Substance Use Screening 08/08/2025 08/08/2024 Tobacco Screening 08/12/2025 08/12/2024 Eye Exam 05/12/2026 05/12/2024, 05/01, 05/12/2024, Additional history exists DTaP/Tdap/Td Vaccines (2 - Td or Tdap) 06/05/2031 06/05/2021 Colonoscopy 05/13/2032 05/13/2022 Colorectal Cancer Screening 05/13/2032 Pneumococcal Vaccine: 50+ Years Completed 04/15/2023, 06/05/2021 Hepatitis C Screening Completed 05/21/2023, 023 Hepatitis B Vaccines Completed 07/16/2023, 02/12/2023, 01/12/2023 Influenza Vaccine Completed 02/26/2024, , 03/13/2021, Additional history exists HIB Vaccines Aged Out No longer eligi ble based on patient's age to complete this topic HPV Vaccines Aged Out No longer eligi ble based on patient's age to complete this topic IPV Vaccines Aged Out No longer eligi ble based on patient's age to complete this topic Meningococcal B Vaccine Aged Out No l onger eligible based on patient's age to complete this topic Meningococcal Vaccine Aged Out No stephanie nicholas eligible based on patient's age to complete this topic RSV under 20 months Aged Out No longe r eligible based on patient's age to complete this topic Rotavirus Vaccines Aged Out No longer eligible based on patient's age to complete this topic Goals Goal Patient Goal Type Associated Problems Recent Progress Patient-Stated? Author Blood Pressure < 140/90 Blood Pressure 104/80( 025 4:00 PM EDT) No Avina, Nikko, PharmD Procedures Procedure Name Priority Date/Time Associated Diagnosis Comments POCT GLYCOSYLATED HEMOGLOBIN (HGB A1C) Routine 11/01/2024 2:48 PM EDT Type 2 diabetes mellitus with stage 3b chronic kidney disease, without long-term current use of insulin (CMS/HCC) POCT GLUCOSE Routine 11/01/2024 2:48 PM EDT Type 2 diabetes mellitus with stage 3b chronic kidney disease, without long-term current use of insulin (CMS/HCC) LIPID PANEL WITH REFLEX TO DIRECT LDL Routine 03/09/2024 12:49 PM EDT Type 2 diabetes mellitus with stage 3b chronic kidney disease, without long-term current use of insulin ([facility]) Dyslipidemia HEPATITIS PANEL, GENERAL Routine 05/21/2023 11:35 AM EST HM COLONOSCOPY Routine 05/13/2022 from Last 3 Months or Most Recently Relevant to Health Maintenance Results * (ABNORMAL) POCT glycosylated hemoglobin (Hgb A1c) (11/01/2024 2:48 PM EDT) Hemoglobin A1C 7.1(A) 4.0 - 6.0 % QC Media Lot # [id number] Lot# Expiration Date Blood Capillary blood specimen / Unknown 11/01/2024 2:48 PM EDT us Missy Crawford MD POINT OF CARE TEST ENTER/EDIT OR DERABLES Final Result * POCT glucose manually resulted (11/01/2024 2:48 PM EDT) Glucose Blood, POC 107 60 - 200 mg/dL QC Media Lot # [id number] Lot# Expiration Date Blood Capillary blood specimen / Unknown 11/01/2024 2:48 PM EDT us Missy Crawford MD POINT OF CARE TEST ENTER/EDIT OR DERABLES Final Result * Lipid Panel with Reflex to Direct LDL (03/09/2024 12:49 PM EDT) Triglycerides 108 <150 mg/dL [facility] Comment:Desirable Triglyceri de: less than 150 mg/dLBorderline High Triglyceride 150-199 mg/dLHigh Triglyceride: 200-499 mg/dLVery High Triglyceride: greater than or equal to 5OO mg/dL Cholesterol 146 <200 mg/dL [facility] Comment:Desirable Cholestero l: less than 200 mg/dLBorderline High Cholesterol: 200-239 mg/dLHigh Cholesterol: greater than 239 mg/dL LDL Cholesterol Calculated 82 <100 mg/dL [facility] Comment:Desirable LDL: less than 100 mg/dLNear Optimal/Above Optimal LDL: 110- 129 mg/dLBorderline High LDL: 130-159 mg/dLHigh LDL: 160-189 mg/dLVery High LDL: greater than or equal to 190 mg/dL HDL Cholesterol 43 >40 mg/dL [facility] Comment:Desirable HDL: great er than 40 mg/dL Note: This HDL assay may give artificially low results in patients with liver disease. Blood 03/09/2024 12:4 9 PM EDT 03/09/2024 12:49 PM EDT us Missy Crawford MD LAB BLOOD ORDERABLES Final Resul t [facility] [address] [place] [phone] * Hepatitis Panel, General (05/21/2023 11:35 AM EST) Hepatitis A IgM Nonreactive Nonreactive [facility] Comment:IgM antibodies to CHARLES V not detected; does not exclude earlyacute or recovered HAV infection. ~Hepatitis B Surface Antibody NONREACTIVE Nonreactive [facility] Comment:Nonreactive: < 8.00 mIU/mL Hepatitis B Core Antibody Nonreactive Nonreactive [facility] Hepatitis C Antibody Nonreactive Nonreactive [facility] Comment:Antibodies to HCV no t detected; does not exclude early acuteHCV infection. 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
[2024-11-21 22:47] VITALS: BP 107/77; PULSE 69; RESP 16; TEMP 36.5; O2SAT 98
[2024-11-21 23:19] VITALS: BP 107/77; PULSE 69; RESP 16; TEMP 36.5; O2SAT 98
== END 2024-11-21 23:23 | disposition home or self-care (01) ==
PROVIDERS: Emergency Provider Emergency Medicine
DX: S63.602A Unspecified sprain of left thumb, initial encounter (principal); X58.XXXA Exposure to other specified factors, initial encounter; Y93.9 Activity, unspecified; Y92.9 Unspecified place or not applicable; Y99.8 Other external cause status; Z79.899 Other long term (current) drug therapy
CPT/HCPCS: 73130; 99283; 99284

== ENCOUNTER → 2024-11-21 16:52 | Outpatient (BNV) | payer MEDICARE, SELFPAY | PROVIDERS: Visit Provider Specialist | DX: M79.642 Pain in left hand (principal) | CPT/HCPCS: 73130 ==

== ENCOUNTER 2025-02-10 09:35 | Outpatient (REF) | payer MEDICARE, SELFPAY ==
[2025-02-10 09:47] LABS: MANUAL DIFF FLAG NO
--- OUTSIDE RECORDS SUMMARY | 2025-02-10 10:41 | XMS_ITS | Clinical Summary ---
Author Organization [employer] Address [address] [facility] 7[address] [place] [address] Care Team Providers Care Chief Jailer Name Role Phone Missy Crawford MD Primary Care Provider [phone] Nikko Avina PharmD Unavailable [phone] Allergies No known active allergies Medications Alcohol Swabs (Alcohol Pads) 70 % pads Use to test blood sugar once or twice daily Active FreeStyle lancets Use one lancet daily to test blood sugar Active Blood Glucose Monitoring Suppl (FreeStyle Crocker) kit Use to test blood sugar once daily Active aspirin 81 MG chewable tablet Chew 1 tablet (81 mg) in the morning. 90 tablet 3 10/07/19 23 Active omega-3 (Fish Oil) 500 MG capsule Take 500 mg by mouth in the morning. Purchases OTC Active cholecalcifero l (Vitamin D-3) 10 MCG (400 UNIT) capsule Take 1 capsule by mouth in the morning. Purchases OTC Active metFORMIN XR (Glucophage-XR ) 500 MG 24 hr tablet TAKE 1 TABLETS BY MOUTH TWICE DAILY WITH THE EVENING MEAL 180 tablet 3 04/28/20 23 Active glucose blood (FREESTYLE LITE) test strip insert 1 by into machine route every day 100 each 07/21/19 24 Active cyanocobalamin (Vitamin B-12) 1000 MCG tablet Take 1 tablet (1,000 mcg) by mouth Once per day. 90 tablet 3 10/19/19 24 Active gabapentin (Neurontin) 300 MG capsule Take 1 capsule (300 mg) by mouth at bedtime. 90 capsule 3 02/02/20 24 Active lisinopril 5 MG tablet Take 1 tablet (5 mg) by mouth Once per day. 90 tablet 3 05/17/20 24 Active Blood Glucose Monitoring Suppl (OneTouch Verio) w/Device kit Use to check blood sugar once daily 1 kit 05/26/20 24 Active OneTouch Verio test strip Use to check blood sugar once daily 100 each 3 05/26/20 24 Active OneTouch Delica Lancets 33G misc Use to check blood sugar once daily 100 each 3 05/26/20 24 Active dapagliflozin (Farxiga) 10 MG Take 1 tablet (10 mg) by mouth Once per day. 90 tablet 3 08/31/19 25 Active SITagliptin (Januvia) 50 MG tabletIndicati ons:Type 2 diabetes mellitus with hyperglycemia, without long-term current use of insulin ([facility]) TAKE 1 TABLET BY MOUTH EVERY DAY 90 tablet 12/29/19 25 Active atorvastatin (Lipitor) 10 MG tablet TAKE 1 TABLET BY MOUTH ONCE DAILY AT BEDTIME 90 tablet 1 01/20/20 25 Active atorvastatin (Lipitor) 10 MG tablet TAKE 1 TABLET BY MOUTH EVERY DAY AT BEDTIME 90 tablet 1 08/17/19 25 025 Discontinued Active Problems Problem Noted Date Diagnosed Date Trigger finger 11/17/2024 Assessment & Plan (02/08/2025 2:28 PM EDT): - 3rd and 4th, 4th finger more prominent than 3rd. - bilateral, left hand more prominent and right-handed - discussed about OT; patient prefers to search internet and find appropriate home therapy. We discussed about trustworthy sites. - will write a script for finger splints / braces. Assessment & Plan (11/17/2024 6:00 AM EDT): [...] it's availability Dyslipidemia 02/02/2024 Assessment & Plan (01/30/2025 11:20 AM EDT): Last lipid profile in Mar 2024 Current medication: atorvastatin 10 mg at bedtime, consider increasing its dose Previous medication history: pravastatin which was switched due to elevated LDL Continue working on lifestyle modifications Assessment & Plan (11/01/2024 1:36 PM EDT): [...] chronic kidney disease 07/21/2023 Assessment & Plan (02/08/2025 2:24 PM EDT): - following with Dr. Kohler, at [facility]. Last seen on 03/10/24 - Lisinopril dose was decreased to 5 mg daily in Apr 2023 - Continue dapagliflozin (Farxiga) - Avoid nephrotoxic drugs - Renal dose medications - Prevent renal hypoperfusion Assessment & Plan (11/01/2024 1:37 PM EDT): - following with Dr. Kohler, at [facility]. Last seen on 03/10/24 - Lisinopril dose was decreased to 5 mg daily in Apr 2023 - Will start SGLT2i - Avoid nephrotoxic drugs - Renal dose medications - Prevent renal hypoperfusion Assessment & Plan (08/12/2024 6:13 PM EDT): - following with Dr. Kohler, at [facility]. Last seen on 03/10/24 - Lisinopril dose was decreased to 5 mg daily in Apr 2023 - Will start SGLT2i - Avoid nephrotoxic drugs - Renal dose medications - Prevent renal hypoperfusion Assessment & Plan (02/02/2024 3:47 PM EDT): - following with Dr. Kohler, at [facility]. Last seen on 09/15/23 - Lisinopril dose was decreased to 5 mg daily in Apr 2023 - Avoid nephrotoxic drugs - Renal dose medications - Prevent renal hypoperfusion Assessment & Plan (10/19/2023 2:21 PM EDT): - following with Dr. Kohler, at [facility]. Last seen on 09/15/23 - Lisinopril dose was decreased to 5 mg daily in Apr 2023 - Avoid nephrotoxic drugs - Renal dose medications - Prevent renal hypoperfusion Assessment & Plan (07/21/2023 5:56 AM EST): - following with Dr. Kohler, at [facility]. Last seen on 06/16/23 - Lisinopril dose [...] mellitus, type 2 06/09/2022 Assessment & Plan (02/08/2025 2:18 PM EDT): - A1C 6.0% on 01/31/25, improved from 7.1% on 11/01/24 -Continue working on lifestyle modifications -Continue Januvia [...] July. -Comprehensive eye exam: May 2025 at [facility] Eye care. No diabetic retinopathy, Dx with Glaucoma and cataract. -Comprehensive foot exam: Jan 2025 -Lipid profile: 2023 Triglyceride 108; Total cholesterol 146; LDL 82; HDL 43 -Microalbumin: 2023 UACR 92.5 -Immunizations up to date -follow-up in 3 months Assessment & Plan (11/01/2024 4:55 PM EDT): [...] July. -Comprehensive eye exam: May 2025 at [facility] Eye care. No diabetic retinopathy, Dx [...] 2023. -Comprehensive eye exam: May 2025 at [facility] Eye care. No diabetic retinopathy, Dx [...] 3 months Hypertension 06/09/2022 Assessment & Plan (02/08/2025 2:05 PM EDT): -Goal BP < 130/80 per ACC/AHA guideline, < 130/[address] Gordon (endorsed by PCP) -BP at goal today -Continue working on lifestyle modifications. -Check BP at home regularly -Continue lisinopril 5 mg daily. Treatment Hx: -Lisinopril was decreased by systems integration advisor due to prerenal component in CKD -Discontinued amlodipine since pt had not been adherent and BP was still at his goal Assessment & Plan (11/01/2024 1:36 PM EDT): -Goal BP < 140/90 per JNC-8 and < 130/80 per ACC/AHA guideline, < 130/[address] Gordon -BP at goal today -Continue working on lifestyle modifications. -Check BP at home regularly -Continue lisinopril 5 mg daily. -Lisinopril was decreased by systems integration advisor due to prerenal component in CKD -Discontinued [...] 5 mg daily. -Lisinopril was decreased by systems integration advisor due to prerenal component in CKD -Discontinued [...] 5 mg daily. -Lisinopril was decreased by systems integration advisor due to prerenal component in CKD -Discontinued [...] 5 mg daily. -Lisinopril was decreased by systems integration advisor due to prerenal component in CKD -Discontinued [...] 5 mg daily. -Lisinopril was decreased by systems integration advisor due to prerenal component in CKD -Discontinued [...] Microalbuminuria due to type 2 diabetes mellitus ([facility]) 06/09/2022 Assessment & Plan (11/03/2024 11:23 PM [...] variant hypertrophic cardiomyopathy 06/09 Assessment & Plan (02/08/2025 2:17 PM EDT): -Flight Follower, Dr. Gordon, [facility], last seen in Apr 2023 -Echocardiogram on 05/14/22 -- The left ventricular systolic function is hyperdynamic. The visually estimated ejection fraction is >70%. 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 -- No obvious valvular pathology seen on this study Continue annual follow up as recommended Assessment & Plan (08/12/2024 6:13 PM EDT): -Flight FollowerDr. Gordon, [facility], last seen in Apr 2023 -Echocardiogram on 05/14/22 -- The left ventricular systolic function is hyperdynamic. The visually estimated ejection fraction is >70%. 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 -- No obvious valvular pathology seen on this study Continue annual follow up as recommended Assessment & Plan (07/26/2023 3:06 PM EST): -Flight FollowerDr. Gordon, [facility], last seen in Apr 2023 -Echocardiogram on 05/14/22 -- The left ventricular systolic function is hyperdynamic. The visually estimated ejection fraction is >70%. 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 -- No obvious valvular pathology seen on this study Continue annual follow up as recommended Assessment & Plan (01/18/2023 6:22 AM EDT): -Flight Follower, Dr. Gordon, [facility], last seen in Apr 2022 -Echocardiogram on 05/14/22 -- The left ventricular systolic function is hyperdynamic. The visually estimated ejection fraction is >70%. 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 -- No obvious valvular pathology seen on this study Continue annual follow up as recommended Assessment & Plan (06/09/2022 5:36 AM EST): -Flight Follower, Dr. Gordon, [facility], last seen in Apr 2022 -Echocardiogram on 05/14/22 -- The left ventricular systolic function is hyperdynamic. The visually estimated ejection fraction is >70%. 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 -- No obvious valvular pathology seen on this study Continue annual follow up as recommended Erosive (osteo)arthritis 06/09/2022 Assessment & Plan (02/08/2025 2:25 PM EDT): -seen on hand X-ray -ERICH negative; RF negative -evaluated by rheumatology provider, and was informed that patient has OA, rather than inflammatory arthritis -continue APAP prn -Pt declines steroid injection Assessment & Plan (11/01/2024 4:56 PM EDT): [...] prn -Pt previously declined a referral to Boiler Technician, but agrees today Assessment & Plan (01/18/2023 6:22 AM EDT): -seen on hand X-ray -ERICH negative; RF negative -treat as OA -continue APAP prn -Pt declines referral to Boiler Technician at this time. Assessment & Plan (06/09/2022 5:37 AM EST): -seen on hand X-ray -ERICH negative; RF negative -treat as OA -continue APAP prn -Pt declines referral to Boiler Technician at this time. Metabolic dysfunction-associ ated steatotic liver disease (MASLD) 06/09/2022 Assessment & Plan (02/08/2025 2:22 PM EDT): -Last US in October 2022: generalized increase in hepatic echotexture, consistent with fatty infiltration or hepatocellular disease. No focal hepatic mass or intrahepatic biliary dilatation is seen; There is borderline splenomegaly; Two benign, simple left renal cysts are seen, for which no imaging follow-up is recommended. -Continue periodic lab and US -Continue working on lifestyle modifications Assessment & Plan (11/01/2024 1:37 PM EDT): [...] Encounters Date Type Department Care Team Description 02/08/2025 Telephone [facility] [address] [place] [address] Missy Crawford MD Durable Medical Equipment (DME Request: Bilateral Trigger Finger Brace/Splint) 01/31/2025 3:15 PM EDT Office Visit [facility] [address] [place] [address] Missy Crawford MD Type 2 diabetes mellitus with stage 3b chronic kidney disease, without long-term current use of insulin (CMS/HCC) (Primary Dx); Primary hypertension; Dyslipidemia; Metabolic dysfunction-associated steatotic liver disease (MASLD); Stage 3b chronic kidney disease (CMS/HCC); Apical variant hypertrophic cardiomyopathy (CMS/HCC); Trigger middle finger of right hand; Erosive (osteo)arthritis 01/31/2025 Travel 01/19/2025 Refill [facility] [address] [place] [address] Missy Crawford MD 12/28/2024 Refill [facility] [address] [place] [address] David Chapman MD Type 2 diabetes mellitus with hyperglycemia, without long-term current use of insulin (CMS/HCC) 12/01/2024 Telephone [facility] [address] [place], [place] [phone] Missy Crawford MD Durable Medical Equipment 11/18/2024 Telephone [facility] [address] [place] [address] Effie Ridley MA DME/Finger splint from Last 3 Months Immunizations Immunization Administration [...] is your housing situation today? I have nathaniel sosa 01/31/[address] you li ve. Do you have problems with any of the following? None of the above 01/31/2025 Food Insecurity Answer Date Recorded Within the past 12 months, y ou worried that your food would run out before you got money to buy more: Never True 01/31/2025 Within the past 12 months,th e food you bought just didn't last and you didn't have enough money to get more: Never True 07/2024 Transportation Answer Date Recorded In the past 12 months, has l ack of transportation kept you from medical appts, meetings, work or from getting things needed for daily living? No 01/31/2025 Utilities Answer Date Recorded In the past 12 months, has t he electric, gas, oil or water company threatened to shut off services in your home? No 01/31/2025 Depression Answer Date Recorded Patient Health Questionnaire-2 Score 0 02/02/2024 Internet Access Answer Date Recorded Internet Access Q1 Yes 01/31/2025 Internet Access Q2 Not on file 01/31/2025 Sex and Gender Information Value Date Recorded Sex Assigned at Male 03/31/2022 10:18 AM EDT Legal Sex Male 10:18 AM EDT Gender Identity Male 03/31/2022 10:18 AM EDT Sexual Orientation Don't know 03/31/2022 10 :18 AM EDT Last Filed Vital Signs Vital Sign Reading Time Taken Comments Blood Pressure 128/80 01/31/2025 4:15 PM EDT Pulse 69 01/31/2025 3:19 PM EDT Temperature 35.7 C (96.2 F) 01/31/2025 3:19 PM EDT Respiratory Rate 20 01/31/2025 3:19 PM EDT Oxygen Saturation 99% 01/31/2025 3:19 PM EDT Inhaled Oxygen Concentration - - Weight 86.9 kg (191 lb 9.6 oz) 01/31/2025 3:19 P M EDT Height 170.2 cm (5' 7 ) 01/31/2025 3:19 PM EDT Body Mass Index 30.01 01/31/2025 3:19 PM EDT Plan of Treatment Upcoming Encounters Date Type Department Care Team (Late st Contact Info) Description 05/01/2025 1:30 PM EST Office Visit [facility] [address] [place] [address] Torri Jha, OD [address] [place] [address] Health Maintenance Due Date Last Done Comments CT Colonography 1955 FIT DNA/Cologuard 1955 FIT 1955 FOBT 1955 Sigmoidoscopy 1955 Hepatitis A Vaccines (1 of 2 - Risk 2-dose series) 1974 Zoster Vaccines (1 of 2) 2005 RSV Patients and Patients Aged 60 years or older (1 - Risk 60-74 years 1-dose series) 2015 COVID-19 Vaccine ( season) 2025 02/26/2024, 07/16/2023, 06/11/2022, Additional history exists Influenza Vaccine (#1) 2025 , 04/15/2023, 03/13/2021, Additional history exists Depression Screening 02/01/2025 02/02/2024, 02/02/20 24 Lipid Panel 03/09/2025 03/09/2024, 04/01, 03/04/2022, Additional history exists Diabetes: Hemoglobin A1C 07/31/2025 025, 11/01/2024, 08/08/2024, Additional history exists Alcohol/Substance Use Screening 08/08/2025 08/08/2024 Diabetes: Foot Exam 01/31/2026 01/31/2025, 01/31/2025, 01/31/2025, Additional history exists SDOH Screening 01/31/2026 01/31/2025 Tobacco Screening 01/31/2026 01/31/2025 Eye Exam 05/12/2026 05/12/2024, 05/01, 05/12/2024, Additional history exists DTaP/Tdap/Td Vaccines (2 - Td or Tdap) 06/05/2031 06/05/2021 Colonoscopy 05/13/2032 05/13/2022 Colorectal Cancer Screening 05/13/2032 Pneumococcal Vaccine: 50+ Years Completed 04/15/2023, 06/05/2021 Hepatitis C Screening Completed 05/21/2023, 023 Hepatitis B Vaccines Completed 07/16/2023, 02/12/2023, 01/12/2023 HIB Vaccines Aged Out No longer eligi [...] Author Blood Pressure < 140/90 Blood Pressure 128/80( 025 4:15 PM EDT) No Nikko Avina, PharmD Procedures Procedure Name Priority Date/Time Associated Diagnosis Comments POCT GLYCATED HEMOGLOBIN, TOTAL Routine 01/31/2025 3:23 PM EDT Type 2 diabetes mellitus with stage 3b chronic kidney disease, without long-term current use of insulin (CMS/HCC) POCT GLUCOSE Routine 01/31/2025 3:23 PM EDT Type 2 diabetes mellitus with stage 3b chronic kidney disease, without long-term current use of insulin (CMS/HCC) LIPID PANEL WITH REFLEX TO DIRECT LDL Routine 03/09/2024 12:49 PM EDT Type 2 diabetes mellitus with stage 3b chronic kidney disease, without long-term current use of insulin (CMS/HCC) Dyslipidemia HEPATITIS PANEL, GENERAL Routine 05/21/2023 11:35 AM EST HM COLONOSCOPY Routine 05/13/2022 from Last 3 Months or Most Recently Relevant to Health Maintenance Results * (ABNORMAL) POCT HGB A1C (01/31/2025 3:23 PM EDT) Hemoglobin A1C 6.0(A) 4.0 - 5.7 % QC Media Lot # [id number] Lot# Expiration Date , Blood 01/31/2025 3:23 PM EDT us Missy Crawford MD POINT OF CARE TEST ENTER/EDIT OR DERABLES Final Result * POCT Glucose (01/31/2025 3:23 PM EDT) Glucose Blood, POC 96 60 - 200 mg/dL QC Media Lot # [id number] Lot# Expiration Date 2034, Blood Capillary blood specimen / Unknown 01/31/2025 3:23 PM EDT us Missy Crawford MD POINT OF CARE TEST ENTER/EDIT OR DERABLES Final Result * Lipid Panel with Reflex to Direct LDL (03/09/2024 12:49 PM EDT) Triglycerides 108 <150 mg/dL [facility] Comment:Desirable Triglyceri de: less than 150 mg/dLBorderline High Triglyceride 150-199 mg/dLHigh Triglyceride: 200-499 mg/dLVery High Triglyceride: greater than or equal to 5OO mg/dL Cholesterol 146 <200 mg/dL [facility] Comment:Desirable Cholestero l: less than 200 mg/dLBorderline High Cholesterol: 200-239 mg/dLHigh Cholesterol: greater than 239 mg/dL LDL Cholesterol Calculated 82 <100 mg/dL [facility] Comment:Desirable LDL: less than 100 mg/dLNear Optimal/Above Optimal LDL: 110- 129 mg/dLBorderline High LDL: 130-159 mg/dLHigh LDL: 160-189 mg/dLVery High LDL: greater than or equal to 190 mg/dL HDL Cholesterol 43 >40 mg/dL [facility] Comment:Desirable HDL: great er than 40 mg/dL Note: This HDL assay may give artificially low results in patients with liver disease. Blood 03/09/2024 12:4 9 PM EDT 03/09/2024 12:49 PM EDT us Missy Crawford MD LAB BLOOD ORDERABLES Final Resul t [facility] [address] [place] [phone] * Hepatitis Panel, General (05/21/2023 11:35 AM EST) Hepatitis A IgM Nonreactive Nonreactive [facility] Comment:IgM antibodies to CHARLES V not detected; does not exclude earlyacute or recovered HAV infection. ~Hepatitis B Surface Antibody NONREACTIVE Nonreactive [facility] Comment:Nonreactive: < 8.00 mIU/mL Hepatitis B Core Antibody Nonreactive Nonreactive [facility] Hepatitis C Antibody Nonreactive Nonreactive [facility] Comment:Antibodies to HCV no t detected; does not exclude early acuteHCV infection. Hepatitis B Surface Ag Negative Negative [facility] 05/21/2023 11:3 5 AM EST 05/21/2023 11:35 AM EST us Generic External Data Provider LAB BLOOD ORDERAB LES Final Result [facility] [address] [place] [address] [phone] * Colonoscopy (05/13/2022) Colonoscopy Normal Normal 05/13/2022 Historical Provider HEALTH MAINTENANCE Final Result from Last 3 Months or Most Recently Relevant to Health Maintenance Insurance * Guarantor: Prabhu Esquivel Account Type Relation to Patient Date of Phone Billing Address Personal/Family Self [address] [place] [address] GROUP MEDICARE REPLACEMENT Care Teams Chief Jailer Relationship Specialty Start Date End Date Missy Crawford MD [address] [place] [address] PCP - General Family Medicine 10/01/20 Nikko Avina, KaminiD [address] [place] [phone] Pharmacist Internal Medicine 03/13/23
--- OUTSIDE RECORDS SUMMARY | 2025-02-10 10:41 | XMS_ITS | Encounter Summary ---
Author Organization [employer] Address [address] [facility] 7t [place] [address] Care Team Providers Care Flap Presser Name Role Phone Missy Crawford MD Primary Care Provider [phone] Nikko Avina PharmD Unavailable [phone] Reason for Visit * Reason Onset Date Comments Durable Medical Equipment 02/08/2025 DME Re quest: Bilateral Trigger Finger Brace/Splint Encounter Details Date Type Department Care Team (Late st Contact Info) Description 02/08/2025 Telephone [facility] [address] [place] [address] Missy Crawford MD [address] [place], [place] [phone] Durable Medical Equipment (DME Request: Bilateral Trigger Finger Brace/Splint) Social History Tobacco Use Types Packs/Day Years Used Date Smoking Tobacco: Never Passive Smoke Exposure: Never Smokeless Tobacco: Never Depression Answer Date Recorded Patient Health Questionnaire-9 [...] Don't know 03/31/2022 10 :18 AM EDT documented as of this encounter Miscellaneous Notes * Telephone Encounter - Celena Rebolledo - 02/08/2025 3:53 PM EDT DME orders for bilateral trigger finger splints were generated and sent via FAX to [facility]), along with supporting documentation. Confirmation was uploaded to Media. * Telephone Encounter - Celena Rebolledo - 02/08/2025 3:52 PM EDT ----- Message from Missy Crawford MD sent at 02/08/2025 2:27 PM EDT ----- Please write scripts for trigger finger braces / splints. Dx bilateral 4th finger trigger fingers. One for each hand. Thank you. documented in this encounter Plan of Treatment Upcoming Encounters Date Type Department Care Team (Late st Contact Info) Description 05/01/2025 1:30 PM EST Office Visit [facility] [address] [place], [place] [phone] Torri Jha, OD [address] [place], [place] [phone] documented as of this encounter Goals Goal Patient Goal Type Associated Problems Recent Progress Patient-Stated? Author Blood Pressure < 140/90 Blood Pressure 128/80( 025 4:15 PM EDT) No Nikko Avina, PharmD documented as of this encounter Visit Diagnoses Not on filedocumented in this encounter Additional Health Concerns Assessment Noted Time PHQ-9 Depression Total Score: 0 02/02/20 24 3:36 PM EDT documented as of this encounter Care Teams Flap Presser Relationship Specialty Start Date End Date Missy Crawford MD [address] [place] [address] PCP - General Family Medicine 10/01/20 Nikko Avina, PharmD [address] [place] [address] Pharmacist Internal Medicine 03/13/23 documented as of this encounter
--- OUTSIDE RECORDS SUMMARY | 2025-02-10 10:41 | XMS_ITS | Clinical Summary ---
Author Organization [facility] Address [address] [place] [address] Care Team Providers Care Director Acute Name Role Phone Unavailable Primary Care Provider Unavailabl e Social History Tobacco Use Types Packs/Day Years Used Date Smoking Tobacco: Never Assessed Sex and Gender Information Value Date Recorded Sex Assigned at Not on file Legal Sex Male 6:30 PM EST Gender Identity Not on file Sexual Orientation Not on file Plan of Treatment Health Maintenance Due Date Last Done Comments Advance Care Planning 1955 Hepatitis C Virus Screening 1955 DTaP/Tdap/Td Vaccines (1 - Tdap) 1974 Pneumococcal Vaccines 50+ (1 of 1 - PCV) 2005 Zoster (Shingles) Vaccine (1 of 2) 2005 COVID-19 Vaccine ( - 2023-2 5 season) 2025 RSV Vaccine 60 years and old er and Patients (1 - 1-dose 75+ series) 2030 Hepatitis B Vaccines Aged Out No long er eligible based on patient's age to complete this topic
--- OUTSIDE RECORDS SUMMARY | 2025-02-10 10:41 | XMS_ITS | Clinical Summary ---
Author Organization [facility] Address [address] [place] [address] Care Team Providers Care Tractor Sweeper Operator Name Role Phone Franklindayton Eduin Primary Care Provider [phone] Allergies No known active allergies Medications Medication Sig Dispensed Refills Start Date End Date Status metFORMIN (GLUCOPHAGE) tablet 500 mg TK 2 TS PO BID WAC 0 09/08/2019 Active glipiZIDE (GLUCOTROL XL) ER 24 hr tablet 2.5 mg 1 tablet 0 02/03/2018 Active cycloSPORINE (RESTASIS MULTIDOSE) 0.05 % ophthalmic emulsion 1 drop into both eye 0 Active pravastatin (PRAVACHOL) tablet 20 mg TK 1 T PO QD 0 09/08/2019 Active JANUVIA 100 MG tablet TK 1 T PO QD 0 10/21/2019 A ctive amLODIPine (NORVASC) tablet 5 mg Take 1 tablet (5 mg total) by mouth daily. 90 tablet 3 02/03/2020 Active Active Problems Problem Noted Date Diagnosed Date Bilateral carotid artery disease 02/03/2020 Pulmonary hypertension 01/10/2020 Social History Tobacco Use Types Packs/Day Years Used Date Smoking Tobacco: Never Assessed Sex and Gender Information Value Date Recorded Sex Assigned at Not on file Gender Identity Not on file Sexual Orientation Not on file Last Filed Vital Signs Vital Sign Reading Time Taken Comments Blood Pressure 160/90 02/03/2020 11:09 AM EDT Pulse 90 02/03/2020 11:09 AM EDT Temperature - - Respiratory Rate - - Oxygen Saturation - - Inhaled Oxygen Concentration - - Weight 95.3 kg (210 lb) 02/03/2020 11:09 AM EDT Height 180.3 cm (5' 11 ) 02/03/2020 11:09 AM EDT Body Mass Index 29.29 02/03/2020 11:09 AM EDT Plan of Treatment Health Maintenance Due Date Last Done Comments Hepatitis C Screening 1955 COVID-19 Vaccine (#1) 1955 Depression Screening 1967 BMI Counseling 1973 Preventative Health Evaluation 1973 DTap / Tdap / Td (1 - Tdap) 1974 Colon Cancer Screening (Colonoscopy) 01/27/2000 Shingrix-Zoster Vaccine (1 of 2) 2005 Fall Risk Assessment 01/27/2020 Pneumococcal Vaccine (1 of 1 - PCV) 01/27/2020 Influenza Vaccine (#1) 2025 RSV Adult > 60+ Yrs or Pregn ant (1 - 1-dose 75+ series) 2030 Hepatitis B Vaccines Aged Out No long er eligible based on patient's age to complete this topic RSV Ped < 20 months Aged Out No longe r eligible based on patient's age to complete this topic Care Teams Tractor Sweeper Operator Relationship Specialty Start Date End Date Eduin De Anda [address] [place] [address] PCP - General Medical Services 10/05/19
--- OUTSIDE RECORDS SUMMARY | 2025-02-10 10:41 | XMS_ITS | Patient Health Record ---
Author Organization [facility] Address [address] [place] [address] Care Team Providers Care Dental Hygienist Name Role Phone Yvette ARELLANO, Missy Primary Care Provider Tommy Amato Jr Unavailable [phone] Allergies No Known Allergies Reason For Referral No Information Medications Medication SIG (Take, Route, Frequency, Duration) Notes Start Date End Date Status amLODIPine Besylate 5 MG Oral for 90 Active glipiZIDE ER 2.5 MG Oral for 90 Active Pravastatin Sodium 20 MG Oral for 90 Active Lisinopril 10 MG Oral for 90 A ctive Januvia 100 MG Oral for 90 Act gaudencio metFORMIN HCl ER 500 MG Oral for 90 Active Vitamin D3 Active Fish Oil Active Vitamin B12 Active MiraLax (colon prep) 17 GM/SCOOP mixed with Gatorade or Crystal Light Orally begin at 5:00 p.m. the day before the procedure for 1 day 04/17/2022 Active Aspirin Adult Low Dose 81 MG 1 tablet Orally Once a day for 30 day(s) 04/17/2022 Not-Taking Immunizations Vaccine Route Administration Date Status Comme nts Influenza Unknown 04/17/2022 Others Social History Tobacco Use: Social History Observation Description Date Details (start date - stop date) Never Smoker NA - NA Tobacco Use/Smoking Question Answer Notes Patient is a nonsmoker Alcohol Screen Question Answer Notes Did you have a drink containing alcohol in the p ast year? 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
--- OUTSIDE RECORDS SUMMARY | 2025-02-10 10:41 | XMS_ITS | Patient Health Record ---
Author Organization [employer] Address [address] [facility] [id number] [place] [address] Care Team Providers Care Industrial Psychology Professor Name Role Phone Bom[employer]ell [facility] Primary Care Provid er Unavailable Alana Chela Unavailable REASON FOR REFERRAL No Information MEDICATIONS Medication SIG (Take, Route, Frequency, Duration) Notes Start Date End Date Status glipiZIDE XL 2.5 mg 1 tablet Orally Once a day for 90 days Active Januvia 100 mg 1 tablet Orally Once a day for 90 days Active Lisinopril 10 mg 1 tablet Orally Once a day for 90 days Active Naproxen 500 mg 1 tablet with food or milk as needed Orally every 12 hrs for 14 days 02/03/2018 Not-Taking Pravastatin Sodium 20 mg 1 tablet Orally Once a day for 90 days Active Debrox 6.5 % 5 drops into affected ear Otic Twice a day for 4 day(s) 11/08/2018 Active Pravastatin Sodium 20 mg 1 tablet Orally Once a day for 30 day(s) 02/03/2018 Not-Taking Flomax 0.4 MG 1 capsule Orally Once a day for 30 Active Naproxen 500 mg 1 tablet with food or milk as needed Orally every 12 hrs for 7 days 01/21/2018 Not-Taking Ammonium Lactate 12 % 1 application to affected area Externally Twice a day for 6 months 03/26/2018 Active Lisinopril 10 MG 1 tablet Orally Once a day for 30 days Not-Taking Clotrimazole 1 % 1 application to affected area Externally Twice a day for 3 months 03/26/2018 Active glipiZIDE XL 2.5 mg 1 tablet Orally Once a day for 30 day(s) 02/03/2018 Not-Taking Marnie Contour Test - as directed In Vitro qd for 90 days Active Blood Pressure Monitor Automat - as directed as directed qam for 30 days DX: I10, length of need:9999 10/21/2019 Active Restasis Multidose 0.05 % 1 drop into both eye Ophthalmic Twice a day for 30 days Active Benzonatate 200 MG 1 capsule Orally Three times a day for 10 days 08/03/2018 Not-Taking metFORMIN HCl 500 mg 2 tablet with a meal Orally twice a day for 90 days Active Amoxicillin 875 MG 1 tablet Orally every 12 hrs for 7 days 10/28/2019 Active Ibuprofen 800 MG 1 tablet with food or milk as needed Orally Three times a day for 7 days 10/28/2019 Active SOCIAL HISTORY Tobacco Use: Social History Observation Description Date Details (start date - stop date) Never Smoker NA - NA Sex Assigned At : Social History Observation Description Sex Assigned At Unknown Tobacco Use/Smoking Question Answer Notes Are you a nonsmoker Alcohol Screen Question Answer Notes Did you have a drink containing alcohol in the p ast year? No Points 0 Interpretation Negative PROBLEMS Problem Type ICD Code Onset Dates Problem Status W/U Status Risk SNOMED Code Notes Problem Type 2 diabetes mellitus without complications (E11.9) Active confirmed Type I I diabetes mellitus without complication (531817850) Problem Keratoconjunctivitis sicca, not specified as Sjogren's, bilateral (H16.223) Active confirmed Keratoco njunctivitis sicca (disorder) (515477594) Problem Age-related nuclear cataract, bilateral (H25.13) Active confirmed Nuclear senile cataract (320048293) Problem Open angle with borderline findings, low risk, bilateral (H40.013) Active confirmed Problem Vitreous degeneration, bilateral (H43.813) Active confirmed Vitreous degeneration (68738995) Problem Dyslipidemia (E78.5) Active confirmed 3 54998593 Problem Essential hypertension (I10) Active confirmed 89634108 PLAN OF TREATMENT Pending Test Test Name Order Date COMPREHENSIVE METABOLIC PANEL 04/22/2019 HEMOGLOBIN A1c 04/22/2019 MICROALBUMIN, RANDOM URINE (W/CREATININE ) 04/22/2019 LIPID PANEL 04/22/2019 Insurance Providers Payer Name Payer Address Payer Phone Subscriber Number Group Number Insured Name Patient Relationship to Insured Coverage Start Date Coverage End Date Jessica Valdovinos [address] [place] [address] [id number] Rosalva Esquivel Spouse - patient is the spouse of the insured MEDICAID D[employer] [address] [place] [address] [id number] Prabhu Esquivel Self - patient is the insured MEDICAL (GENERAL) HISTORY Medical History History ICD Code Hypertension Type II Diabetes Dyslipidemia DILATED EYE EXAM 03/2018 Surgical History Surgery Date(Month/Year) Cardiac Stent 2003 Hospitalization History Reason Date(Month/Year) SEE ABOVE
[2025-02-10 11:00] LABS: Hematocrit 43.7 % (42.0-52.0); Hemoglobin 14.6 g/dl (14.0-18.0); Mean Corpuscular HGB Conc 33.4 g/dl (31.0-36.0); Mean Corpuscular Hemoglobin 27.5 pg (27.0-33.0); Mean Corpuscular Volume 82.3 fL (80.0-98.0); NRBC Abs Auto 0.000 X10*3/uL (0.0-0.012); NRBC Pct Auto 0.0 /100WBC (0.0-0.2); Platelet Count 206 X10*3/uL (160-400); Red Blood Count 5.31 X10*6/uL (4.60-5.80); White Blood Count 6.7 X10*3/uL (4.8-10.8)
[2025-02-10 11:01] LABS: Hematocrit 43.2 % (42.0-52.0); Hemoglobin 14.5 g/dl (14.0-18.0); Imm Gran Abs Auto 0.03 X10*3/uL (0.00-0.03); Imm Gran Pct Auto 0.5 % (0.0-0.4); Lymphocytes Absolute Auto 2.9 X10*3/uL (1.2-4.9); Mean Corpuscular HGB Conc 33.6 g/dl (31.0-36.0); Mean Corpuscular Hemoglobin 27.6 pg (27.0-33.0); Mean Corpuscular Volume 82.1 fL (80.0-98.0); NRBC Abs Auto 0.000 X10*3/uL (0.0-0.012); NRBC Pct Auto 0.0 /100WBC (0.0-0.2); Platelet Count 207 X10*3/uL (160-400); Red Blood Count 5.26 X10*6/uL (4.60-5.80); White Blood Count 6.6 X10*3/uL (4.8-10.8)
[2025-02-10 11:02] LABS: Appearance Urine Clear; Glucose Urine UA >=1000 mg/dL (Negative); PH 5.5 (5.0-9.0); Specific Gravity - Urine >= 1.030 (1.005-1.025); UMIC TRIGGER UA YES
[2025-02-10 11:43] LABS: Alanine Aminotransferase 26 U/L (0-40); Albumin Level 4.6 g/dL (3.5-5.0); Alkaline Phosphatase 53 U/L (39-117); Anion Gap 12 (12-20); Aspartate Amino Transferase 21 U/L (5-37); Blood Urea Nitrogen 28 mg/dL (9-16); Calcium 9.7 mg/dL (8.4-10.2); Carbon Dioxide 26 mmol/L (22-29); Chloride 108 mmol/L (96-108); Estimated Glomerular Filt Rate 46; Potassium 3.7 mmol/L (3.3-5.1); Sodium 142 mmol/L (135-145); Total Protein 7.2 g/dL (6.5-8.0)
[2025-02-10 12:05] LABS: Alanine Aminotransferase 30 U/L (0-40); Albumin Level 4.6 g/dL (3.5-5.0); Alkaline Phosphatase 54 U/L (39-117); Anion Gap 11 (12-20); Aspartate Amino Transferase 23 U/L (5-37); Blood Urea Nitrogen 28 mg/dL (9-16); Calcium 9.8 mg/dL (8.4-10.2); Carbon Dioxide 26 mmol/L (22-29); Chloride 108 mmol/L (96-108); Cholesterol 165 mg/dL (<200); Estimated Glomerular Filt Rate 46; HDL Cholesterol 55 mg/dL (>40); Potassium 3.8 mmol/L (3.3-5.1); Sodium 141 mmol/L (135-145); Total Protein 7.2 g/dL (6.5-8.0); Triglycerides 87 mg/dL (<150)
[2025-02-10 12:20] LABS: Parathyroid Hormone Intact 81.1 pg/mL (8.7-77.1)
[2025-02-10 12:21] LABS: Microalbum/Creatinine Ratio Ur 84.4 ug/mg cr (<30)
[2025-02-10 12:22] LABS: Total Protein Urine Random 20 mg/dL (<12)
[2025-02-10 13:38] LABS: Reflex LDLD? No
== END 2025-02-10 09:36 | disposition home or self-care (01) ==
LOC: HO.LAB 09:35
PROVIDERS: PCP Family Medicine; Visit Provider Internal Medicine Hypertension Specialist
DX: I12.9 Hypertensive chronic kidney disease with stage 1 through stage 4 chronic kidney disease, or unspecified chronic kidney disease (principal); E11.22 Type 2 diabetes mellitus with diabetic chronic kidney disease; N18.32 Chronic kidney disease, stage 3b; K76.0 Fatty (change of) liver, not elsewhere classified; E78.5 Hyperlipidemia, unspecified; R80.9 Proteinuria, unspecified
CPT/HCPCS: 36415; 80053; 80061; 81001; 81003; 82043; 82306; 82570; 83970; 84156; 85025; 85027

== ENCOUNTER 2025-02-21 14:09 | Outpatient (AMB) | payer MEDICARE, SELFPAY ==
--- NOTE | 2025-02-21 14:10 | HO.NEPHOV_ITS ---
Vital Signs 02/21/25 14:11 Height 5 ft 11 in Weight 190 lb BMI 26.5 BP 118/74 Blood Pressure Location Rt brachial Position Sitting Pulse 90 Pulse Source Pulse Oximeter Pulse Oximetry (%) 98 Oxygen Delivery Method Room Air Intake Visit Reasons: FU-Conf Top Installer Required: No Accompanied by: Self / Same As Patient Allergies Pork/Porcine Containing Products Adverse Reaction (Verified 02/21/25 14:12) Rash Medication List - Last Reconciled 02/21/25 by Steve Kohler MD aspirin 1 tab PO DAILY atorvastatin 10 mg PO DAILY cyanocobalamin (vitamin B-12) 1 tab PO DAILY dapagliflozin propanediol (Farxiga) 10 mg PO DAILY [Fish Oil ] gabapentin 300 mg PO DAILY PRN lisinopril 5 mg PO DAILY metformin ER 1,000 mg PO BID sitagliptin phosphate (Januvia) 50 mg PO DAILY [Vitamin D3 ] HPI Comments Details: 60 year old man with history of diabetes mellitus and hypertension for more than 15 years. He was found to have serum creatinine of 1.7 with EGFR of 13 mL/minute he has been a for further evaluation. 03/10/24; Doing well.No new issues 08/22/24 Recently went to [place] and ate calorie rich food Blood sugar elevated 02/21/25 History of Present Illness - The patient is a 70-year-old male presenting with diabetes mellitus and chronic kidney disease. - Diabetes Mellitus: Improved A1c levels indicate better control. - Chronic Kidney Disease: Kidney function improved to 46-49%. - Hypertension: Blood pressure monitored. - Medication adherence: Switched from glipizide to Farxiga. - Lifestyle: Engages in daily exercise, maintains hydration. COUNTS INCLUDE 234 BEDS AT THE [facility] Medical History Spasms of the hands or feet Claw hand Arthralgia of hands, bilateral Bilateral hand numbness Erosive (osteo)arthritis FHx: Alzheimer's disease Memory impairment Left foot pain Bilateral knee pain Transaminitis Type 2 diabetes mellitus Apical variant hypertrophic cardiomyopathy Hyperlipidemia Diabetes HTN (hypertension) Back pain Family History Other Alzheimer disease Social History Patient Tobacco Use Status: Never used Tobacco Physical Exam Vital Signs: Last Vital Signs Pulse 90 02/21/25 14:11 BP 118/74 02/21/25 14:11 Pulse Ox 98 02/21/25 14:11 Oxygen Delivery Method Room Air 02/21/25 14:11 BMI result Body Mass Index 26.5 Results Reviewed Nephrology Results: Hgb, (14.0-18.0) 14.5 g/dl 02/10/25 WBC, (4.8-10.8) 6.6 X10*3/uL 02/10/25 Plt Count, (160-400) 207 X10*3/uL 02/10/25 Sodium, (135-145) 141 mmol/L 02/10/25 Potassium, (3.3-5.1) 3.8 mmol/L 02/10/25 Chloride, (96-108) 108 mmol/L 02/10/25 Carbon Dioxide, (22-29) 26 mmol/L 02/10/25 BUN, (9-16) 28 mg/dL H 02/10/25 Creatinine, (0.5-1.4) 1.50 mg/dL H 02/10/25 Calcium, (8.4-10.2) 9.8 mg/dL 02/10/25 PTH Intact, (8.7-77.1) 81.1 pg/mL H 02/10/25 Urine Protein, (Neg-Trace) Trace mg/dL 02/10/25 Urine Creatinine 119.44 mg/dL 02/10/25 Assessment & Plan Assessment & Plan (1) CKD (chronic kidney disease): Code(s): N18.9 - Chronic kidney disease, unspecified Category: Medical Plan 1. Chronic Kidney Disease Due to underlying diabetes Cr is better Avoid nephrotoxins - Increase water intake. 2. Diabetes Mellitus - Monitor A1c levels. - Continue Farxiga and Januvia. 3. Hypertension - Monitor blood pressure. - Continue lisinopril. Low salt diet Avoid hypotension Goal BP 130/80 Orders: Orders Basic Metabolic Panel 6 Months N18.9 - Chronic kidney disease, unspecified UA and rflx microscopic 6 Months N18.9 - Chronic kidney disease, unspecified Creatinine Urine 6 Months N18.9 - Chronic kidney disease, unspecified Total Protein Urine Random 6 Months N18.9 - Chronic kidney disease, unspecified Coding Level of Care Code Est Pt Level 4 (51569) Diagnoses CKD (chronic kidney disease) N18.9
[2025-02-21 14:11] VITALS: BP 118/74; PULSE 90; O2SAT 98; BMI 26.5
--- OUTSIDE RECORDS SUMMARY | 2025-02-21 17:28 | XMS_ITS | Clinical Summary ---
Author Organization [facility] Address [address] [place] [address] Care Team Providers Care Vaccine Customer Representative Name Role Phone Franklindayton Eduin Primary Care Provider [phone] Allergies No known active allergies Medications Medication [...] age to complete this topic Care Teams Vaccine Customer Representative Relationship Specialty Start Date End Date Eduin De Anda [address] [place] [address] PCP - General Medical Services 10/05/19
--- OUTSIDE RECORDS SUMMARY | 2025-02-21 17:28 | XMS_ITS | Clinical Summary ---
Author Organization [facility] Address [address] [place] [address] Care Team Providers Care Review Rn Name Role Phone Unavailable Primary Care Provider [...]
--- OUTSIDE RECORDS SUMMARY | 2025-02-21 17:28 | XMS_ITS | Patient Health Record ---
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
--- OUTSIDE RECORDS SUMMARY | 2025-02-21 17:28 | XMS_ITS | Patient Health Record ---
Author Organization [employer] Address [address] [facility] [id number] [place] [address] Care Team Providers Care Mirror Maker Name Role Phone Gimmie [facility] Primary Care Provid er Unavailable Alana Chela [...] Type I I diabetes mellitus without complication (556063348) Problem Keratoconjunctivitis sicca, not specified as Sjogren's, bilateral (H16.223) Active confirmed Keratoco njunctivitis sicca (disorder) (211477699) Problem Age-related nuclear cataract, bilateral (H25.13) Active confirmed Nuclear senile cataract (210630734) Problem Open angle with borderline findings, low risk, bilateral (H40.013) Active confirmed Problem Vitreous degeneration, bilateral (H43.813) Active confirmed Vitreous degeneration (79591173) Problem Dyslipidemia (E78.5) Active confirmed 3 33148667 Problem Essential hypertension (I10) Active confirmed 82571147 PLAN OF TREATMENT Pending Test Test Name Order Date COMPREHENSIVE METABOLIC PANEL 04/22/2019 HEMOGLOBIN A1c 04/22/2019 MICROALBUMIN, RANDOM URINE (W/CREATININE ) 04/22/2019 LIPID PANEL 04/22/2019 Insurance Providers Payer Name Payer Address Payer Phone Subscriber Number Group Number Insured Name Patient Relationship to Insured Coverage Start Date Coverage End Date Jessica Valdovinos [address] [place] [address] [id number] Rosalva Esquivel Spouse - patient is the spouse of the insured MEDICAID DENTAL [employer] [address] [place] [address] [id number] Prabhu Esquivel Self - patient is the insured MEDICAL (GENERAL) HISTORY Medical History History ICD Code Hypertension Type II Diabetes Dyslipidemia DILATED EYE EXAM 03/2018 Surgical History Surgery Date(Month/Year) Cardiac Stent 2003 Hospitalization History Reason Date(Month/Year) SEE ABOVE
--- OUTSIDE RECORDS SUMMARY | 2025-02-21 17:28 | XMS_ITS | Clinical Summary ---
Author Organization [employer] Address [address] [facility] 7[address] [place] [address] Care Team Providers Care Chief Information Officer Name Role Phone Missy Crawford MD Primary Care Provider [phone] Nikko Avina PharmD Unavailable [phone] Allergies No known active allergies Medications Alcohol Swabs (Alcohol Pads) 70 % pads Use to test blood sugar once or twice daily Active FreeStyle lancets Use one lancet daily to test blood sugar Active Blood Glucose Monitoring Suppl (FreeStyle Plush) kit Use to test blood sugar once [...] mouth at bedtime. 90 capsule 3 4 Active lisinopril 5 MG tablet Take 1 [...] once daily 100 each 3 4 Active dapagliflozin (Farxiga) 10 MG Take 1 tablet (10 mg) by mouth Once per day. 90 tablet 3 5 Active SITagliptin (Januvia) 50 MG tabletIndicatio ns:Type 2 diabetes mellitus with hyperglycemia, without long-term current use of insulin (CMS/HCC) TAKE 1 TABLET BY MOUTH EVERY DAY 90 tablet 5 Active atorvastatin (Lipitor) 10 MG tablet TAKE 1 TABLET BY MOUTH ONCE DAILY AT BEDTIME 90 tablet 1 5 Active Active Problems Problem Noted Date [...] EDT): - following with Dr. Kohler, at [facility]. Last seen on 03/10/24 - Lisinopril dose was decreased to 5 mg daily in Apr 2023 - Continue dapagliflozin (Farxiga) - Avoid nephrotoxic drugs - Renal dose medications - Prevent renal hypoperfusion Assessment & Plan (11/01/2024 1:37 PM EDT): - following with Dr. Kohler, at [facility] [place]. Last seen on 03/10/24 - Lisinopril dose was decreased to 5 mg daily in Apr 2023 - Will start SGLT2i - Avoid nephrotoxic drugs - Renal dose medications - Prevent renal hypoperfusion Assessment & Plan (08/12/2024 6:13 PM EDT): - following with Dr. Kohler, at [facility] [place]. Last seen on 03/10/24 - Lisinopril dose was decreased to 5 mg daily in Apr 2023 - Will start SGLT2i - Avoid nephrotoxic drugs - Renal dose medications - Prevent renal hypoperfusion Assessment & Plan (02/02/2024 3:47 PM EDT): - following with Dr. Kohler, at [facility] [place]. Last seen on 09/15/23 - Lisinopril dose was decreased to 5 mg daily in Apr 2023 - Avoid nephrotoxic drugs - Renal dose medications - Prevent renal hypoperfusion Assessment & Plan (10/19/2023 2:21 PM EDT): - following with Dr. Kohler, at [facility] [place]. Last seen on 09/15/23 - Lisinopril dose was decreased to 5 mg daily in Apr 2023 - Avoid nephrotoxic drugs - Renal dose medications - Prevent renal hypoperfusion Assessment & Plan (07/21/2023 5:56 AM EST): - following with Dr. Kohler, at [facility] [place]. Last seen on 06/16/23 - Lisinopril dose [...] July. -Comprehensive eye exam: May 2025 at [facility] Eye care. No diabetic retinopathy, Dx [...] July. -Comprehensive eye exam: May 2025 at [facility] Eye care. No diabetic retinopathy, Dx [...] 2023. -Comprehensive eye exam: May 2025 at [facility] Eye care. No diabetic retinopathy, Dx [...] daily. Treatment Hx: -Lisinopril was decreased by dietetic technician registered due to prerenal component in CKD -Discontinued [...] 5 mg daily. -Lisinopril was decreased by dietetic technician registered due to prerenal component in CKD -Discontinued [...] 5 mg daily. -Lisinopril was decreased by dietetic technician registered due to prerenal component in CKD -Discontinued [...] 5 mg daily. -Lisinopril was decreased by dietetic technician registered due to prerenal component in CKD -Discontinued [...] 5 mg daily. -Lisinopril was decreased by dietetic technician registered due to prerenal component in CKD -Discontinued [...] 5 mg daily. -Lisinopril was decreased by dietetic technician registered due to prerenal component in CKD -Discontinued [...] Microalbuminuria due to type 2 diabetes mellitus ([facility]) 06/09/2022 Assessment & Plan (11/03/2024 11:23 PM [...] Assessment & Plan (02/08/2025 2:17 PM EDT): -Breaker OperatorDr. Gordon, [facility] [place], last seen in Apr 2023 -Echocardiogram on 05/14/22 -- The left ventricular systolic function is hyperdynamic. The visually estimated ejection fraction is >70%. 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 -- No obvious valvular pathology seen on this study Continue annual follow up as recommended Assessment & Plan (08/12/2024 6:13 PM EDT): -Breaker OperatorDr. Gordon [facility], last seen in Apr 2023 -Echocardiogram on 05/14/22 -- The left ventricular systolic function is hyperdynamic. The visually estimated ejection fraction is >70%. 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 -- No obvious valvular pathology seen on this study Continue annual follow up as recommended Assessment & Plan (07/26/2023 3:06 PM EST): -Breaker OperatorDr. Gordon [facility] [place], last seen in Apr 2023 -Echocardiogram on 05/14/22 -- The left ventricular systolic function is hyperdynamic. The visually estimated ejection fraction is >70%. 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 -- No obvious valvular pathology seen on this study Continue annual follow up as recommended Assessment & Plan (01/18/2023 6:22 AM EDT): -Breaker Operator, Dr. Gordon, [facility] [place], last seen in Apr 2022 -Echocardiogram on 05/14/22 -- The left ventricular systolic function is hyperdynamic. The visually estimated ejection fraction is >70%. 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 -- No obvious valvular pathology seen on this study Continue annual follow up as recommended Assessment & Plan (06/09/2022 5:36 AM EST): -Breaker Operator, Dr. Gordon, [facility] [place], last seen in Apr 2022 -Echocardiogram on [...] prn -Pt previously declined a referral to Military Technology [employer], but agrees today Assessment & Plan (01/18/2023 6:22 AM EDT): -seen on hand X-ray -ERICH negative; RF negative -treat as OA -continue APAP prn -Pt declines referral to Military Technology Manager at this time. Assessment & Plan (06/09/2022 5:37 AM EST): -seen on hand X-ray -ERICH negative; RF negative -treat as OA -continue APAP prn -Pt declines referral to Military Technology Manager at this time. Metabolic dysfunction-associ ated steatotic [...] Encounters Date Type Department Care Team Description 02/13/2025 Results Follow-Up [address] [address] Missy Crawford MD Albumin, Random Urine W/Creatinine, Comprehensive Metabolic Panel, Lipid Panel with Reflex to Direct LDL, Additional followed-up results: 2 02/08/[address] [facility] [address] [place] [address] Missy Crawford MD Durable Medical Equipment (DME Request: Bilateral Trigger Finger Brace/Splint) 01/31/2025 3:15 PM EDT Office Visit [address] [address] Missy Crawford MD Type 2 diabetes mellitus with stage 3b chronic kidney disease, without long-term current use of insulin (CMS/HCC) (Primary Dx); Primary hypertension; Dyslipidemia; Metabolic dysfunction-associated steatotic liver disease (MASLD); Stage 3b chronic kidney disease (CMS/HCC); Apical variant hypertrophic cardiomyopathy (CMS/HCC); Trigger middle finger of right hand; Erosive (osteo)arthritis 01/31/2025 Travel 01/19/[address] [facility] [address] [place] [address] Missy Crawford MD 12/28/[address] [facility] [address] [place] [address] David Chapman MD Type 2 diabetes mellitus with hyperglycemia, without long-term current use of insulin (CMS/HCC) 12/01/[address] [facility] [address] [place], [place] [phone] Missy Crawford MD Durable Medical Equipment from Last 3 Months Immunizations Immunization Administration [...] Description 05/01/2025 1:30 PM EST Office Visit [facility] OPTOMETRY [address] [place] [address] Torri Jha, OD [address] [place] [address] Health Maintenance Due Date Last Done Comments [...] exists Depression Screening 02/01/2025 02/02/2024, 02/02/20 24 Diabetes: Hemoglobin A1C 07/31/2025 025, 11/01/2024, 08/08/2024, Additional history exists Alcohol/Substance Use Screening 08/08/2025 08/08/2024 Diabetes: Foot Exam 01/31/2026 01/31/2025, 01/31/2025, 01/31/2025, Additional history exists SDOH Screening 01/31/2026 01/31/2025 Tobacco Screening 01/31/2026 01/31/2025 Lipid Panel 02/10/2026 02/10/2025, 10/0 01/2024, 04/16/2023, Additional history exists Eye Exam 05/12/2026 05/12/2024, 05/01, 05/12/2024, Additional [...] Procedure Name Priority Date/Time Associated Diagnosis Comments COMPREHENSIVE METABOLIC PANEL Routine 02/10/2025 9:46 AM EDT CBC Routine 02/10/2025 9:46 AM EDT CBC WITH AUTO DIFFERENTIAL Routine 02/10/2025 9:46 AM EDT Metabolic dysfunction-associat ed steatotic liver disease (MASLD) PTH, INTACT WITHOUT CALCIUM Routine 02/10/2025 9:46 AM EDT Stage 3b chronic kidney disease (CMS/HCC) VITAMIN D,25-OH,TOTAL,IA Routine 02/10/2025 9:46 AM EDT Stage 3b chronic kidney disease (CMS/HCC) LIPID PANEL WITH REFLEX TO DIRECT LDL Routine 02/10/2025 9:46 AM EDT Dyslipidemia COMPREHENSIVE METABOLIC PANEL Routine 02/10/2025 9:46 AM EDT Primary hypertension URINE PROTEIN, TOTAL, RANDOM (W/O CREATININE) Routine 02/10/2025 9:43 AM EDT CREATININE, RANDOM URINE Routine 02/10/2025 9:43 AM EDT URINALYSIS, COMPLETE Routine 02/10/2025 9:43 AM EDT ALBUMIN, RANDOM URINE W/CREATININE Routine 02/10/2025 9:43 AM EDT Primary hypertension Type 2 diabetes mellitus with stage 3b chronic kidney disease, without long-term current use of insulin (CMS/HCC) Microalbuminuria due to type 2 diabetes mellitus (CMS/HCC) (CMS/HCC) POCT GLYCATED HEMOGLOBIN, TOTAL Routine 01/31/2025 3:23 PM EDT Type 2 diabetes mellitus with stage 3b chronic kidney disease, without long-term current use of insulin (CMS/HCC) POCT GLUCOSE Routine 01/31/2025 3:23 PM EDT Type 2 diabetes mellitus with stage 3b chronic kidney disease, without long-term current use of insulin (CMS/HCC) HEPATITIS PANEL, GENERAL Routine 05/21/2023 11:35 AM EST HM COLONOSCOPY Routine 05/13/2022 from Last 3 Months or Most Recently Relevant to Health Maintenance Results * Vitamin D, 25-Hydroxy, Total, Immunoassay (02/10/2025 9:46 AM EDT) Vitamin D 25-OH Total 33.8 >30 ng/mL [facility] Comment: Health Based Reference Values*< 20 ng/mL [id number] ng/mL Insufficient> 30 ng/mL Sufficient*Martin PANIAGUA. N Engl J Med. 2007;357:266-280There is no well-established upper level of normal vitamin Dlevels. Some laboratories use 50 ng/mL as an upper limit ofnormal. However, toxicity is patient-dependent and may occurat any level. Careful correlation with the patient'spresentation is necessary and, if there is concern forvitamin D toxicity, treatment should be consideredirrespective of the serum level.Care must be taken in interpreting Vitamin D results fromdifferent laboratories and methodologies. Published datademonstrated that results from patients undergoinghemodialysis may show a negative bias when tested withvarious automated 25-OH vitamin D assays when compared toLC-MS/MS.When testing samples from patients whose predominant form ofVitamin D is Vitamin D2, such as patients receiving VitaminD2 supplementation, results that are subtherapeutic shouldbe confirmed with another method such as LC-MS/MS. Blood Venous blood specimen / Unknown 02/10/2025 9:46 AM EDT 02/10/2025 9:46 AM EDT us Missy Crawford MD LAB BLOOD ORDERABLES Final Resul t [facility] [address] [place] [phone] * Lipid Panel with Reflex to Direct LDL (02/10/2025 9:46 AM EDT) Triglycerides 87 <150 mg/dL [facility] Comment:Desirable Triglyceri de: less than 150 mg/dLBorderline High Triglyceride 150-199 mg/dLHigh Triglyceride: 200-499 mg/dLVery High Triglyceride: greater than or equal to 5OO mg/dL Cholesterol 165 <200 mg/dL [facility] Comment:Desirable Cholestero l: less than 200 mg/dLBorderline High Cholesterol: 200-239 mg/dLHigh Cholesterol: greater than 239 mg/dL LDL Cholesterol Calculated 93 <100 mg/dL [facility] Comment:Desirable LDL: less than 100 mg/dLNear Optimal/Above Optimal LDL: 110- 129 mg/dLBorderline High LDL: 130-159 mg/dLHigh LDL: 160-189 mg/dLVery High LDL: greater than or equal to 190 mg/dL HDL Cholesterol 55 >40 mg/dL [facility] Comment:Desirable HDL: great er than 40 mg/dL Note: This HDL assay may give artificially low results in patients with liver disease. Blood 02/10/2025 9:46 AM EDT 02/10/2025 9:46 AM EDT us Missy Crawford MD LAB BLOOD ORDERABLES Final Resul t [facility] [address] [place] [phone] * (ABNORMAL) CBC auto differential (02/10/2025 9:46 AM EDT) White Blood Count 6.6 4.8 - 10.8 X10*3/uL [facility] Red Blood Count 5.26 4.60 - 5.80 X10*6/uL [facility] Hemoglobin 14.5 14.0 - 18.0 g/dl [facility] Hematocrit 43.2 42.0 - 52.0 % [facility] Mean Corpuscular Volume 82.1 80.0 - 98.0 fL [facility] Mean Corpuscular Hemoglobin 27.6 27.0 - 33.0 pg [facility] Mean Corpuscular HGB Conc 33.6 31.0 - 36.0 g/dl [facility] Red Cell Distribution Width 14.1 11.0 - 16.0 % [facility] Platelet Count 207 160 - 400 X10*3/uL [facility] Mean Platelet Volume 10.8 9.4 - 12.4 fL [facility] Neutrophils Percent Auto 40.2(L) 45 - 73 % [facility] Imm Gran Pct Auto 0.5(H) 0.0 - 0.4 % [facility] Lymphocytes Percent Auto 44.3(H) 20 - 40 % [facility] Monocytes Percent Auto 8.1 2 - 11 % [facility] Eosinophils Percent Auto 4.8(H) 0 - 4 % [facility] Basophils Percent Auto 2.1(H) 0 - 2 % [facility] NRBC Pct Auto 0.0 0.0 - 0.2 /100WBC [facility] Neutrophils Absolute Auto 2.7 2.0 - 8.3 x10*3/uL [facility] Imm Gran Abs Auto 0.03 0.00 - 0.03 X10*3/uL [facility] Lymphocytes Absolute Auto 2.9 1.2 - 4.9 X10*3/uL [facility] Monocytes Absolute Auto 0.5 0.1 - 1.2 X10*3/uL [facility] Eosinophils Absolute Auto 0.3 0.0 - 0.4 X10*3/uL [facility] Basophils Absolute Auto 0.1 0.0 - 0.2 X10*3/uL [facility] NRBC Abs Auto 0.000 0.0 - 0.012 X10*3/uL [facility] Blood Venous blood specimen / Unknown 02/10/2025 9:46 AM EDT 02/10/2025 9:46 AM EDT us Missy Crawford MD LAB BLOOD ORDERABLES Final Resul t [facility] [address] [place] [phone] * CBC (02/10/2025 9:46 AM EDT) White Blood Count 6.7 4.8 - 10.8 X10*3/uL [facility] Red Blood Count 5.31 4.60 - 5.80 X10*6/uL [facility] Hemoglobin 14.6 14.0 - 18.0 g/dl [facility] Hematocrit 43.7 42.0 - 52.0 % [facility] Mean Corpuscular Volume 82.3 80.0 - 98.0 fL [facility] Mean Corpuscular Hemoglobin 27.5 27.0 - 33.0 pg [facility] Mean Corpuscular HGB Conc 33.4 31.0 - 36.0 g/dl [facility] Red Cell Distribution Width 14.0 11.0 - 16.0 % [facility] Platelet Count 206 160 - 400 X10*3/uL [facility] Mean Platelet Volume 10.8 9.4 - 12.4 fL [facility] NRBC Pct Auto 0.0 0.0 - 0.2 /100WBC [facility] NRBC Abs Auto 0.000 0.0 - 0.012 X10*3/uL [facility] 02/10/2025 9:46 AM EDT 02/10/2025 9:46 AM EDT us Generic External Data Provider LAB BLOOD ORDERAB LES Final Result [facility] [address] [place] [phone] * (ABNORMAL) PTH, Intact Without Calcium (02/10/2025 9:46 AM EDT) Parathyroid Hormone, Intact 81.1(H) 8.7 - 77.1 pg/mL [facility] Blood Venous blood specimen / Unknown 02/10/2025 9:46 AM EDT 02/10/2025 9:46 AM EDT us Missy Crawford MD LAB BLOOD ORDERABLES Final Resul t [facility] [address] [place] [phone] * (ABNORMAL) Comprehensive Metabolic Panel (02/10/2025 9:46 AM EDT) Only the most recent of2 resultswithin the time period is included. Sodium 142 135 - 145 mmol/L [facility] Potassium 3.7 3.3 - 5.1 mmol/L [facility] Chloride 108 96 - 108 mmol/L [facility] Carbon Dioxide 26 22 - 29 mmol/L [facility] Anion Gap 12 12 - 20 [facility] Urea Nitrogen (BUN) 28(H) 9 - 16 mg/dL [facility] Creatinine, Serum 1.50(H) 0.5 - 1.4 mg/dL [facility] Estimated Glomerular Filt Rate 46 [facility] Comment:Chronic Kidney Disea se: Estimated GFR < 60 mL/min/[id number] Kidney Disease: Estimated GFR < 15 mL/min/1.73m2 Glucose 106 60 - 115 mg/dL [facility] Calcium 9.7 8.4 - 10.2 mg/dL [facility] Bilirubin, Total 0.5 0.0 - 1.0 mg/dL [facility] Aspartate Amino Transferase 21 5 - 37 U/L [facility] Alanine Aminotransferase 26 0 - 40 U/L [facility] Total Protein 7.2 6.5 - 8.0 g/dL [facility] Albumin Level 4.6 3.5 - 5.0 g/dL [facility] Alkaline Phosphatase 53 39 - 117 U/L [facility] 02/10/2025 9:46 AM EDT 02/10/2025 9:46 AM EDT us Generic External Data Provider LAB BLOOD ORDERAB LES Final Result Performing Organization Address City/[facility]/ZIP Co de Phone Number [facility] [address] [place] [phone] * (ABNORMAL) Albumin, Random Urine W/Creatinine (02/10/2025 9:43 AM EDT) Creatinine, Urine 119.59 mg/dL [facility] Microalbumin Urine 101.0 mg/L [facility] Microalbum Creatinine Ratio Ur 84.4(H) <30 ug/mg cr [facility] Comment:Albumin/Creatinine R atio Reference Ranges: Normal: < 30 ug/mg creatinine Microalbuminuria: 30 - 300 ug/mg creatinineClinical Albuminuria: > 300 ug/mg creatinine Urine 02/10/2025 9:43 AM EDT 02/10/2025 10:45 AM EDT us Missy Crawford MD LAB URINE ORDERABLES Final Resul t Performing Organization Address [facility] Co de Phone Number [facility] [address] [place] [phone] * (ABNORMAL) Urine Protein, Total, Random without Creatinine (02/10/2025 9:43 AM EDT) Protein, Total, Random Urine 20(H) <12 mg/dL [facility] 02/10/2025 9:43 AM EDT 02/10/2025 10:45 AM EDT us Generic External Data Provider LAB URINE ORDERAB LES Final Result Performing Organization Address [facility] Co de Phone Number [facility] [address] [place] [phone] * Creatinine, Random Urine (02/10/2025 9:43 AM EDT) Creatinine, Urine 119.44 mg/dL [facility] 02/10/2025 9:43 AM EDT 02/10/2025 10:45 AM EDT Generic External Data Provider LAB URINE ORDERAB LES Final Result Performing Organization Address [facility]/ZIP Co de Phone Number [facility] [address] [place] [phone] * (ABNORMAL) Urinalysis Complete (02/10/2025 9:43 AM EDT) Color Urine Yellow [facility] Appearance Urine Clear [facility] PH 5.5 5.0 - 9.0 [facility] Glucose Urine UA >=1000(A) Negative mg/dL [facility] Urine Blood Negative Negative [facility] Specific [place] - Urine >=1.030(H) 1.005 - 1.025 [facility] Urine Protein Trace Neg-Trace mg/dL [facility] Urine Ketones Negative Negative mg/dL [facility] Nitrite Urine Negative Negative [facility] Leukocyte Esterase Urine Negative Negative [facility] RBC Urine 0-2 0 - 2 /HPF [facility] Urine WBC 0-5 0 - 5 /HPF [facility] Urine Squamous Epithelial Cell 0-2 0 - 2 /HPF [facility] Urine Bacteria None Seen None Seen [facility] Hyaline Casts, Urine 0-2 0 - 2 /LPF [facility] 02/10/2025 9:43 AM EDT 02/10/2025 10:45 AM EDT us Generic External Data Provider LAB URINE ORDERAB LES Final Result Performing Organization Address City/[facility]/ZIP Co de Phone Number [facility] [address] [place] [phone] * (ABNORMAL) POCT HGB A1C (01/31/2025 3:23 PM EDT) Hemoglobin A1C 6.0(A) 4.0 - 5.7 % QC Media Lot # [id number] Lot# Expiration Date 923, Blood 01/31/2025 3:23 PM EDT Missy Crawford MD POINT OF CARE TEST ENTER/EDIT OR DERABLES Final Result * POCT Glucose (01/31/2025 3:23 PM EDT) Glucose Blood, POC 96 60 - 200 mg/dL [employer] Lot # [id number] Lot# Expiration Date [id number] Blood Capillary blood specimen / Unknown 01/31/2025 3:23 PM EDT Missy Crawford MD POINT OF CARE TEST ENTER/EDIT OR DERABLES Final Result * Hepatitis Panel, General (05/21/2023 11:35 AM EST) Hepatitis A IgM Nonreactive Nonreactive [facility] Comment:IgM antibodies to CHARLES V not detected; does not exclude earlyacute or recovered HAV infection. ~Hepatitis B Surface Antibody NONREACTIVE Nonreactive [facility] Comment:Nonreactive: < 8.00 mIU/mL Hepatitis B Core Antibody Nonreactive Nonreactive [facility] Hepatitis C Antibody Nonreactive Nonreactive [facility] Comment:Antibodies to HCV no t detected; does not exclude early acuteHCV infection. Hepatitis B Surface Ag Negative Negative [facility] 05/21/2023 11:3 5 AM EST 05/21/2023 11:35 AM EST Generic External Data Provider LAB BLOOD ORDERAB LES Final Result [facility] [address] [place] [address] [phone] * Hm Colonoscopy (05/13/2022) Colonoscopy Normal Normal 05/13/2022 Historical Provider HEALTH MAINTENANCE Final Result from Last 3 Months or Most Recently Relevant to Health Maintenance Insurance Care Teams Chief Information Officer Relationship Specialty Start Date End Date Missy Crawford MD [address] [place] [address] PCP - General Family Medicine 10/01/20 Nikko Avina, KaminiD [address] [place] [address] Pharmacist Internal Medicine 03/13/23
--- OUTSIDE RECORDS SUMMARY | 2025-02-21 17:28 | XMS_ITS | Encounter Summary ---
Author Organization [employer] Address [address] [facility] 7[address] [place] [address] Care Team Providers Care Commercial Art Instructor Name Role Phone Missy Crawford MD Primary Care Provider [phone] Nikko Avina PharmD Unavailable [phone] Encounter Details Date Type Department Care Team (Latest Contact Info) Description 02/13/2025 Results Follow-Up [facility] [address] [place] [address] Missy Crawford MD [address] [place] [address] Albumin, Random Urine W/Creatinine, Comprehensive Metabolic Panel, Lipid Panel with Reflex to Direct LDL, Additional followed-up results: 2 Social History Tobacco Use Types Packs/Day Years [...] AM EDT documented as of this encounter Plan of Treatment Upcoming Encounters Date Type Department Care Team (Late st Contact Info) Description 05/01/2025 1:30 PM EST Office Visit [facility] OPTOMETRY [address] [place] [address] TarkaTorri, OD [address] [place] [address] documented as of this encounter Goals Goal Patient Goal Type Associated Problems Recent Progress Patient-Stated? Author Blood Pressure < 140/90 Blood Pressure 128/80( 025 4:15 PM EDT) No Nikko Avina, Sho documented as of this encounter Visit Diagnoses Not on filedocumented in this encounter Additional Health Concerns Assessment Noted Time PHQ-9 Depression Total Score: 0 02/02/20 24 3:36 PM EDT documented as of this encounter Care Teams Commercial Art Instructor Relationship Specialty Start Date End Date Missy Crawford MD [address] [place], [place] [phone] PCP - General Family Medicine 10/01/20 Nikko Avina PharmD [address] [place] [address] Pharmacist Internal Medicine 03/13/23 documented as of this encounter
== END 2025-02-21 14:33 | disposition home or self-care (01) ==
LOC: HO.HKA 14:10
PROVIDERS: PCP Family Medicine; Visit Provider Internal Medicine Hypertension Specialist
DX: N18.9 Chronic kidney disease, unspecified (principal)
CPT/HCPCS: 99214

== ENCOUNTER → 2025-02-21 14:09 | Outpatient (BNVA) | payer MEDICARE, SELFPAY | PROVIDERS: PCP Family Medicine; Visit Provider Internal Medicine Hypertension Specialist | DX: E11.22 Type 2 diabetes mellitus with diabetic chronic kidney disease (principal); N18.9 Chronic kidney disease, unspecified; I12.9 Hypertensive chronic kidney disease with stage 1 through stage 4 chronic kidney disease, or unspecified chronic kidney disease | CPT/HCPCS: 99212 ==